=== PATIENT | female | born 1955 | race Caucasian/White ===

== ENCOUNTER 2018-08-11 19:51 | Emergency (ER) | payer OTHER ==
[~2018-08-11] VITALS: Ht 165.1 cm; Wt 100.0 kg
[2018-08-11] MEDS ORDERED: KETOROLAC 30 MG/1 ML IVPush ONE (20:00)
[2018-08-11] MEDS ORDERED: PROMETHAZINE 25 MG/ML, 1ML IM ONE (20:00)
[2018-08-11] MEDS ORDERED: KETOROLAC 30 MG/1 ML ONE (20:04)
[2018-08-11] MEDS ORDERED: PROMETHAZINE 25 MG/ML, 1ML ONE (20:04)
--- NOTE | 2018-08-11 20:17 | NUR ---
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 received 1000 cc fluid and 8 mg zofran en route. BG 165 per [facility]
[2018-08-11 20:21] LABS: BASOPHILS # (AUTO) 0.01 x10^3/uL (0-0.1); BASOPHILS % (AUTO) 0 % (0-1); EOSINOPHILS # (AUTO) 0.01 x10^3/uL (0-0.4); EOSINOPHILS % (AUTO) 0 % (1-7); LYMPHOCYTES # (AUTO) 1.02 x10^3/uL (1-3.4); LYMPHOCYTES % (AUTO) 12 % (22-44); MD NO; MEAN CORPUSCULAR HEMOGLOBIN 31.1 pg (27.0-34.8); MEAN CORPUSCULAR HGB CONC 34.6 g/dL (32.4-35.8); MEAN PLATELET VOLUME 7.7 fL (7.4-10.4); MONOCYTES % (AUTO) 8 % (2-9); NEUTROPHILS # (AUTO) 6.88 x10^3/uL (1.8-6.8); NEUTROPHILS % (AUTO) 80 % (42-75); PLATELET COUNT 314 x10^3/uL (130-400); RED BLOOD COUNT 4.93 x10^6/uL (3.82-5.3); RED CELL DISTRIBUTION WIDTH 12.9 % (9.6-15.2)
[2018-08-11 20:31] LABS: ALANINE AMINOTRANSFERASE 32 U/L (12-78); ALBUMIN 3.8 g/dL (3.4-5.0); ANION GAP 9 mmol/L (5-15); CALCIUM 8.3 mg/dL (8.5-10.1); CHLORIDE 100 mmol/L (98-107); CREATININE 1.57 mg/dL (0.55-1.02)
--- NOTE | 2018-08-11 20:33 | NUR ---
PT RESTING COMFORTABLY IN [facility].
[2018-08-11 20:35] LABS: ALKALINE PHOSPHATASE 79 U/L (45-117); BILIRUBIN,TOTAL 0.4 mg/dL (0.2-1.0); TOTAL PROTEIN 7.3 g/dL (6.4-8.2); TROPONIN I < 0.015 ng/mL (0.000-0.045)
[2018-08-11 20:48] VITALS: BP 110/78
--- NOTE | 2018-08-11 20:53 | NUR ---
pt ready for dc. awaiting ride in room
== END 2018-08-11 22:37 | disposition home or self-care (01) ==
LOC: ED 20:46
DX: R55 Syncope and collapse (principal); R11.2 Nausea with vomiting, unspecified; R51 Headache; I10 Essential (primary) hypertension
CPT/HCPCS: 36415; 71045; 80053; 84484; 85025; 93005; 96372; 96374; 99284; J1885; J2550

== ENCOUNTER 2018-08-13 07:48 | Inpatient (IN) | payer OTHER ==
[~2018-08-13] VITALS: Ht 165.1 cm; Wt 104.4 kg
[2018-08-13] MEDS ORDERED: FLUT12AE2 INH (08:11)
[2018-08-13] MEDS ORDERED: SPIR1TAB PO (08:11)
[2018-08-13] MEDS ORDERED: FLUT12HF IH (08:12)
[2018-08-13] MEDS ORDERED: ALBU1.25 NEB (08:13)
[2018-08-13] MEDS ORDERED: CHOL500050 PO (08:14)
[2018-08-13] MEDS ORDERED: methylPREDNISolone SOD SUCC 125 MG/2 ML IVP ONE (08:30)
[2018-08-13] MEDS ORDERED: ALBUTEROL/IPRATROPIUM 2.5MG/0.5MG, 3 ML NEB ONE (08:30)
[2018-08-13] MEDS ORDERED: SODIUM CHLORIDE FLUSH 10ML SYR IVF ONE (08:30)
[2018-08-13] MEDS ORDERED: ALBUTEROL/IPRATROPIUM 2.5MG/0.5MG, 3 ML ONE ×2 (08:33→10:35)
[2018-08-13] MEDS ORDERED: methylPREDNISolone SOD SUCC 125 MG/2 ML ONE (08:40)
[2018-08-13 08:43] LABS: MEAN CORPUSCULAR HEMOGLOBIN 30.7 pg (27.0-34.8); MEAN CORPUSCULAR VOLUME 90.2 fL (80-100); MEAN PLATELET VOLUME 7.9 fL (7.4-10.4); PLATELET COUNT 317 x10^3/uL (130-400); RED BLOOD COUNT 5.26 x10^6/uL (3.82-5.3); RED CELL DISTRIBUTION WIDTH 12.9 % (9.6-15.2)
--- NOTE | 2018-08-13 08:46 | NUR ---
BREATHING TREATMENT COMPLETE. SOLUMEDROL GIVEN. PT REPORTS SOME IMPROVEMENT ON WORK OF BREATHING AFTER BREATHING TREATMENT.
[2018-08-13 08:54] LABS: ANION GAP 8 mmol/L (5-15); CALCIUM 9.3 mg/dL (8.5-10.1); CHLORIDE 103 mmol/L (98-107)
[2018-08-13 08:55] LABS: CREATININE 1.27 mg/dL (0.55-1.02)
[2018-08-13] MEDS ORDERED: PROMETHAZINE/COD. 10MG/6.25MG/5 ML ORAL SOL PO ONE (09:00)
[2018-08-13 09:05] LABS: BASOPHILS # (AUTO) 0.01 x10^3/uL (0-0.1); BASOPHILS % (AUTO) 0 % (0-1); EOSINOPHILS # (AUTO) 0.04 x10^3/uL (0-0.4); EOSINOPHILS % (AUTO) 0 % (1-7); LYMPHOCYTES # (AUTO) 0.95 x10^3/uL (1-3.4); LYMPHOCYTES % (AUTO) 7 % (22-44); MD SCAN; MONOCYTES # (AUTO) 0.69 x10^3/uL (0.2-0.8); MONOCYTES % (AUTO) 5 % (2-9); NEUTROPHILS # (AUTO) 11.45 x10^3/uL (1.8-6.8); NEUTROPHILS % (AUTO) 87 % (42-75)
--- NOTE | 2018-08-13 09:58 | NUR ---
BS PT REPORT FROM LUZ MARINA Whitt RN. PT CARE ASSUMED. PT SITTING UPRIGHT ON BED W/ SIDE RAILS UP X2, A&OX4, RESP EVEN & UNLABORED, SKIN WNL. TWO IV LOCKS PRESENT: LT HAND, LAC. SPOUSE IN ROOM. PT TO CT PER KAREN.
--- NOTE | 2018-08-13 10:00 | NUR ---
SBAR HAND-OFF REPORT GIVEN TO AILEEN OLIVA. PT TO CT AT THIS TIME.
[2018-08-13] MEDS ORDERED: OMNIPAQUE 350 MG/ML, 100ML BOTTLE ONE (10:16)
[2018-08-13] MEDS ORDERED: ALBUTEROL SULFATE 2.5 MG/3 ML NPPB ONE (10:30)
--- NOTE | 2018-08-13 11:03 | NUR ---
TASK RN: PT AMBULATED ON RA SATING 91-93%. PT HAD COUGHING SPELL AND DESATED TO 89%. PT BROUGHT O2 SATS BACK UP TO 90-91% RA. PT HAD ANOTHER COUGHING SPELL AND DESATED TO 89%. PT STATED SHE FELT DIZZY AND LIGHTHEADED. PT WALKED BACK INTO ROOM SATING 87-89% W/ HR 116. PT PLACED BACK ON GURRIO NIDO. MONITORS REAPPLIED. PT SATING 92% RA. [place] ORTEGA, PRIMARY RN. NOTIFIED
--- NOTE | 2018-08-13 11:33 | NUR ---
PT SITTING UPRIGHT ON BED, CARDIAC & VS MONITORING CONTINUES. FREQUENT CONGESTED COUGH NOTED. PT REPORTS COUGH HAS IMPROVED; HAS HAD 2 NEB TX'S. PT AWAITING ADMIT. HEMATOMA TO BACK OF RT HAND R/T BLOOD DRAW. LT ARM & HAND IV'S ASSESSED; BOTH PATENT.
--- NOTE | 2018-08-13 11:36 | NUR ---
THROUGHPUT RN: BED REQUESTED FROM MEDICAL AT THIS TIME.
--- NOTE | 2018-08-13 11:48 | NUR ---
THROUGHPUT RN: BED ASSINGMENT RECEIVED AT THIS TIME.
--- NOTE | 2018-08-13 12:00 | NUR ---
REPORT TO AILEEN GONZALEZ FOR ROOM 365
[2018-08-13] MEDS ORDERED: DOCUSATE 100 MG CAPSULE PO PRN (12:30)
[2018-08-13] MEDS: ACETAMINOPHEN 325 MG TABLET PO PRN ×3 (12:46→23:44)
[2018-08-13 12:50] VITALS: BP 145/84
[2018-08-13] MEDS ORDERED: methylPREDNISolone SOD SUCC 125 MG/2 ML IVPush SCH (13:00)
[2018-08-13 14:21] VITALS: BP 136/74
[2018-08-13] MEDS: GUAIFENESIN/DM 200-20MG, 10ML UDC PO PRN ×2 (15:53→21:58)
[2018-08-13] MEDS: ALBUTEROL SULFATE 2.5 MG/3 ML NPPB SCH (18:32)
[2018-08-13 19:01] VITALS: BP 137/69
[2018-08-13] MEDS: methylPREDNISolone SOD SUCC 125 MG/2 ML IVPush SCH (19:54)
[2018-08-13] MEDS ORDERED: SUMATRIPTAN 100 MG TABLET PO PRN (21:30)
[2018-08-13] MEDS: ALBUTEROL SULFATE 2.5 MG/3 ML NPPB PRN (23:36)
[2018-08-13] MEDS: TEMAZEPAM 15 MG CAPSULE PO PRN (23:44)
[2018-08-14] MEDS ORDERED: ASPIRIN 325 MG TABLET ONE (00:15)
[2018-08-14] MEDS ORDERED: NITROGLYCERIN 0.4 MG BOTTLE (25 TABS) SL ONE ×2 (00:15→00:30)
[2018-08-14] MEDS ORDERED: MORPHINE SULFATE 4 MG/ML, 1ML ONE (00:15)
[2018-08-14 00:30] VITALS: BP 143/83
[2018-08-14] MEDS ORDERED: MORPHINE SULFATE 4 MG/ML, 1ML IVPush ONE (00:30)
[2018-08-14] MEDS ORDERED: ASPIRIN 325 MG TABLET PO ONE (00:30)
[2018-08-14 01:20] LABS: TROPONIN I < 0.015 ng/mL (0.000-0.045)
[2018-08-14] MEDS: MORPHINE SULFATE 4 MG/ML, 1ML IVPush PRN (01:53)
[2018-08-14 02:04] VITALS: BP 134/79
[2018-08-14] MEDS: GUAIFENESIN/COD200MG-20MG/10ML LIQUID PO PRN ×2 (03:50→10:13)
[2018-08-14] MEDS: ALBUTEROL SULFATE 2.5 MG/3 ML NPPB SCH ×6 (04:27→20:36)
[2018-08-14 05:54] LABS: MEAN CORPUSCULAR HEMOGLOBIN 31.3 pg (27.0-34.8); MEAN CORPUSCULAR HGB CONC 34.7 g/dL (32.4-35.8); MEAN CORPUSCULAR VOLUME 90.1 fL (80-100); MEAN PLATELET VOLUME 7.8 fL (7.4-10.4); PLATELET COUNT 292 x10^3/uL (130-400); RED BLOOD COUNT 4.82 x10^6/uL (3.82-5.3); RED CELL DISTRIBUTION WIDTH 12.9 % (9.6-15.2)
[2018-08-14 05:56] LABS: ALANINE AMINOTRANSFERASE 35 U/L (12-78); ALBUMIN 3.7 g/dL (3.4-5.0); ANION GAP 9 mmol/L (5-15); CALCIUM 10.1 mg/dL (8.5-10.1); CHLORIDE 99 mmol/L (98-107); CREATININE 1.36 mg/dL (0.55-1.02)
[2018-08-14 05:58] LABS: ALKALINE PHOSPHATASE 80 U/L (45-117); BILIRUBIN,TOTAL 0.5 mg/dL (0.2-1.0); TOTAL PROTEIN 7.5 g/dL (6.4-8.2)
[2018-08-14 06:05] LABS: TROPONIN I < 0.015 ng/mL (0.000-0.045)
[2018-08-14 06:12] LABS: MD YES
[2018-08-14 06:14] LABS: BAND#(MANUAL) 1.34 x10^3/uL; BANDS%(MANUAL) 7 % (0-7); LYMPH#(MANUAL) 0.76 x10^3/uL (1-3.4); LYMPHS% (MANUAL) 4 % (22-44); MONOS#(MANUAL) 0.19 x10^3/uL (0.3-2.7); MONOS% (MANUAL) 1 % (2-9); SEG#(MANUAL) 16.81 x10^3/uL (1.8-6.8); SEGS% (MANUAL) 88 % (42-75)
[2018-08-14 06:15] LABS: <PLATELET ESTIMATE> ADEQUATE; <PLT MORPHOLOGY> NORMAL PLT MORPH; <RBC MORPHOLOGY> NORMAL
[2018-08-14] MEDS ORDERED: SPIRONOLACT/HCTZ 25/25MG TABLET PO SCH (09:00)
[2018-08-14] MEDS ORDERED: MAGNESIUM SULFATE PMX 2GM/50ML 50 ML IV ONE (09:00)
[2018-08-14] MEDS: ONDANSETRON 2MG/ML, 2ML IVPush PRN (09:17)
[2018-08-14 09:18] VITALS: BP 114/64
[2018-08-14] MEDS: SODIUM CHLORIDE 0.9% 1,000 ML IV SCH ×2 (10:12→22:54)
[2018-08-14] MEDS: methylPREDNISolone SOD SUCC 125 MG/2 ML IVPush SCH ×2 (10:13→20:49)
[2018-08-14] MEDS: ACETAMINOPHEN 325 MG TABLET PO PRN (10:13)
[2018-08-14 11:09] LABS: RAPID INFLUENZA A Negative (Negative); RAPID INFLUENZA B Negative (Negative)
[2018-08-14 11:48] VITALS: BP 104/63
[2018-08-14] MEDS: METHOCARBAMOL 500 MG TABLET PO PRN ×2 (13:09→22:55)
[2018-08-14] MEDS: LIDODERM 5% PATCH TD SCH (13:09)
[2018-08-14] MEDS: CEFTRIAXONE PMX 1GM/50ML 50 ML IV SCH (13:12)
[2018-08-14 13:40] VITALS: BP 125/80
[2018-08-14] MEDS: DOXYCYCLINE 100 MG in DEXTROSE 5% 250 ML IV SCH (14:03)
[2018-08-14] MEDS: GUAIFENESIN 200 MG TABLET PO SCH ×2 (15:50→20:49)
[2018-08-14 18:44] VITALS: BP 107/68
[2018-08-14] MEDS: FAMOTIDINE 20 MG TABLET PO SCH (20:49)
[2018-08-15] MEDS: BENZONATATE 100 MG CAPSULE PO PRN ×3 (00:35→19:13)
[2018-08-15 00:36] VITALS: BP 98/62
[2018-08-15] MEDS: DOXYCYCLINE 100 MG in DEXTROSE 5% 250 ML IV SCH ×2 (00:41→13:30)
[2018-08-15] MEDS: ALBUTEROL SULFATE 2.5 MG/3 ML NPPB SCH ×5 (01:00→20:00)
[2018-08-15] MEDS: ONDANSETRON 2MG/ML, 2ML IVPush PRN (04:34)
[2018-08-15] MEDS: MORPHINE SULFATE 4 MG/ML, 1ML IVPush PRN ×2 (04:34→14:30)
[2018-08-15] MEDS: GUAIFENESIN 200 MG TABLET PO SCH ×3 (05:14→20:30)
[2018-08-15 05:54] LABS: CHLORIDE 97 mmol/L (98-107)
[2018-08-15 06:01] LABS: ANION GAP 7 mmol/L (5-15); CALCIUM 9.2 mg/dL (8.5-10.1); CREATININE 1.33 mg/dL (0.55-1.02)
[2018-08-15 06:14] LABS: MEAN CORPUSCULAR HEMOGLOBIN 31.2 pg (27.0-34.8); MEAN CORPUSCULAR HGB CONC 34.4 g/dL (32.4-35.8); MEAN CORPUSCULAR VOLUME 90.7 fL (80-100); MEAN PLATELET VOLUME 8.3 fL (7.4-10.4); PLATELET COUNT 277 x10^3/uL (130-400); RED BLOOD COUNT 4.52 x10^6/uL (3.82-5.3); RED CELL DISTRIBUTION WIDTH 12.7 % (9.6-15.2)
[2018-08-15 06:51] LABS: MD YES
[2018-08-15 06:52] LABS: BAND#(MANUAL) 2.51 x10^3/uL; BANDS%(MANUAL) 16 % (0-7); LYMPH#(MANUAL) 0.47 x10^3/uL (1-3.4); LYMPHS% (MANUAL) 3 % (22-44); MONOS#(MANUAL) 0.79 x10^3/uL (0.3-2.7); MONOS% (MANUAL) 5 % (2-9); SEG#(MANUAL) 11.93 x10^3/uL (1.8-6.8); SEGS% (MANUAL) 76 % (42-75)
[2018-08-15 06:53] LABS: <PLATELET ESTIMATE> ADEQUATE; <PLT MORPHOLOGY> NORMAL PLT MORPH; <RBC MORPHOLOGY> NORMAL
[2018-08-15] MEDS: methylPREDNISolone SOD SUCC 125 MG/2 ML IVPush SCH ×3 (07:45→20:25)
[2018-08-15] MEDS: GUAIFENESIN/DM 200-20MG, 10ML UDC PO PRN ×3 (07:49→20:27)
[2018-08-15] MEDS: METHOCARBAMOL 500 MG TABLET PO PRN (07:49)
[2018-08-15 08:00] VITALS: BP 149/80
[2018-08-15] MEDS ORDERED: KETOROLAC 30 MG/1 ML IVPush PRN (11:30)
[2018-08-15] MEDS: LIDODERM 5% PATCH TD SCH (12:08)
[2018-08-15] MEDS: CEFTRIAXONE PMX 1GM/50ML 50 ML IV SCH (12:09)
[2018-08-15 15:13] VITALS: BP 111/73
[2018-08-15 16:57] VITALS: BP 115/72
[2018-08-15 19:33] VITALS: BP 104/64
[2018-08-15] MEDS: FAMOTIDINE 20 MG TABLET PO SCH (20:27)
[2018-08-15] MEDS: TEMAZEPAM 15 MG CAPSULE PO PRN (23:43)
[2018-08-16] MEDS: MORPHINE SULFATE 4 MG/ML, 1ML IVPush PRN (01:18)
[2018-08-16] MEDS: DOXYCYCLINE 100 MG in DEXTROSE 5% 250 ML IV SCH (01:18)
[2018-08-16 01:24] VITALS: BP 121/80
[2018-08-16 01:53] VITALS: BP 113/56
[2018-08-16] MEDS: METHOCARBAMOL 500 MG TABLET PO PRN ×2 (03:36→09:41)
[2018-08-16] MEDS: GUAIFENESIN/DM 200-20MG, 10ML UDC PO PRN (05:26)
[2018-08-16 05:40] LABS: MEAN CORPUSCULAR HEMOGLOBIN 31.4 pg (27.0-34.8); MEAN CORPUSCULAR HGB CONC 34.3 g/dL (32.4-35.8); MEAN CORPUSCULAR VOLUME 91.5 fL (80-100); MEAN PLATELET VOLUME 8.2 fL (7.4-10.4); PLATELET COUNT 298 x10^3/uL (130-400); RED BLOOD COUNT 4.32 x10^6/uL (3.82-5.3)
[2018-08-16 05:42] LABS: ANION GAP 7 mmol/L (5-15); CALCIUM 8.9 mg/dL (8.5-10.1); CHLORIDE 100 mmol/L (98-107)
[2018-08-16 05:43] LABS: CREATININE 1.03 mg/dL (0.55-1.02)
[2018-08-16 06:02] LABS: MD YES
[2018-08-16 06:04] LABS: BANDS%(MANUAL) 12 % (0-7); LYMPHS% (MANUAL) 4 % (22-44); METAMYELOCYTES# (MANUAL) 0.25 x10^3/uL (0-0); METAMYELOCYTES% (MANUAL) 1 % (0-1); MONOS% (MANUAL) 2 % (2-9); MYELOCYTES# (MANUAL) 0.25 x10^3/uL (0-0); MYELOCYTES% (MANUAL) 1 % (0-0); SEGS% (MANUAL) 80 % (42-75)
[2018-08-16 06:05] LABS: <PLATELET ESTIMATE> ADEQUATE; <PLT MORPHOLOGY> NORMAL PLT MORPH; <RBC MORPHOLOGY> NORMAL; PMNS WITH VACUOLES 1+; TOXIC GRAN 1+
[2018-08-16] MEDS: ALBUTEROL SULFATE 2.5 MG/3 ML NPPB SCH ×4 (06:45→20:58)
[2018-08-16] MEDS: methylPREDNISolone SOD SUCC 125 MG/2 ML IVPush SCH (07:34)
[2018-08-16] MEDS: GUAIFENESIN 200 MG TABLET PO SCH (07:35)
[2018-08-16 08:34] VITALS: BP 115/73
[2018-08-16] MEDS: PANTOPRAZOLE 40 MG IV IVPush SCH (09:27)
[2018-08-16] MEDS: LIDODERM 5% PATCH TD SCH ×2 (09:38→12:15)
[2018-08-16] MEDS ORDERED: SODIUM CHLORIDE 0.9% 1,000 ML IV SCH ×2 (10:00→18:30)
[2018-08-16] MEDS: CEFTRIAXONE PMX 1GM/50ML 50 ML IV SCH (12:15)
[2018-08-16 13:16] VITALS: BP 125/80
[2018-08-16] MEDS: GUAIFENESIN ER 600 MG TABLET PO SCH ×2 (15:28→20:36)
[2018-08-16] MEDS: MEROPENEM 1 GM in SODIUM CHLORIDE 0.9% 100 ML IV SCH ×2 (15:28→23:13)
[2018-08-16] MEDS: DOXYCYCLINE 100MG TABLET PO SCH ×2 (15:28→20:36)
[2018-08-16] MEDS ORDERED: MAGNESIUM HYDROXIDE 8%, 30ML UDC ONE (17:30)
[2018-08-16] MEDS ORDERED: MAGNESIUM HYDROXIDE 8%, 30ML UDC PO PRN (18:00)
[2018-08-16 19:08] VITALS: BP 138/72
[2018-08-17 00:35] VITALS: BP 133/80
[2018-08-17] MEDS: ALBUTEROL SULFATE 2.5 MG/3 ML NPPB PRN (03:10)
[2018-08-17] MEDS: MEROPENEM 1 GM in SODIUM CHLORIDE 0.9% 100 ML IV SCH ×3 (06:40→23:09)
[2018-08-17 07:05] VITALS: BP 141/86
[2018-08-17] MEDS: ALBUTEROL SULFATE 2.5 MG/3 ML NPPB SCH ×5 (07:37→22:50)
[2018-08-17 07:58] LABS: MEAN CORPUSCULAR HEMOGLOBIN 30.8 pg (27.0-34.8); MEAN CORPUSCULAR VOLUME 90.8 fL (80-100); MEAN PLATELET VOLUME 7.9 fL (7.4-10.4); PLATELET COUNT 334 x10^3/uL (130-400); RED BLOOD COUNT 4.28 x10^6/uL (3.82-5.3); RED CELL DISTRIBUTION WIDTH 12.9 % (9.6-15.2)
[2018-08-17 08:09] LABS: ANION GAP 7 mmol/L (5-15); CALCIUM 8.9 mg/dL (8.5-10.1); CHLORIDE 103 mmol/L (98-107); CREATININE 0.96 mg/dL (0.55-1.02)
[2018-08-17] MEDS: GUAIFENESIN ER 600 MG TABLET PO SCH ×3 (08:12→20:16)
[2018-08-17] MEDS: PANTOPRAZOLE 40 MG IV IVPush SCH (08:12)
[2018-08-17] MEDS: DOXYCYCLINE 100MG TABLET PO SCH (08:12)
[2018-08-17] MEDS: POLYETHYLENE GLYCOL 17 GM PACKET PO SCH (08:12)
[2018-08-17 08:17] LABS: MD YES
[2018-08-17] MEDS ORDERED: LISI-167 PO (08:18)
[2018-08-17 08:20] LABS: BAND#(MANUAL) 5.92 x10^3/uL; BANDS%(MANUAL) 20 % (0-7); LYMPH#(MANUAL) 2.66 x10^3/uL (1-3.4); LYMPHS% (MANUAL) 9 % (22-44); METAMYELOCYTES% (MANUAL) 1 % (0-1); MONOS#(MANUAL) 1.18 x10^3/uL (0.3-2.7); MONOS% (MANUAL) 4 % (2-9); SEG#(MANUAL) 19.54 x10^3/uL (1.8-6.8); SEGS% (MANUAL) 66 % (42-75)
[2018-08-17 08:21] LABS: <PLATELET ESTIMATE> ADEQUATE; <PLT MORPHOLOGY> NORMAL PLT MORPH; <RBC MORPHOLOGY> NORMAL; TOXIC GRAN 1+
[2018-08-17] MEDS ORDERED: LINEZOLID 600 MG TABLET PO SCH (09:00)
[2018-08-17] MEDS: methylPREDNISolone SOD SUCC 40 MG/ML IV SCH ×2 (09:29→20:16)
[2018-08-17] MEDS: LIDODERM 5% PATCH TD SCH (10:38)
[2018-08-17 12:25] VITALS: BP 152/72
[2018-08-17] MEDS ORDERED: LISINOPRIL 10 MG TABLET ONE (12:43)
[2018-08-17] MEDS: SPIRONOLACT/HCTZ 25/25MG TABLET PO SCH (13:15)
[2018-08-17] MEDS: LISINOPRIL 10 MG TABLET PO SCH (13:16)
[2018-08-17] MEDS: METHOCARBAMOL 500 MG TABLET PO PRN ×2 (13:26→20:16)
[2018-08-17] MEDS ORDERED: BISACODYL 10 MG SUPP PR PRN (15:00)
[2018-08-17] MEDS ORDERED: VANCOMYCIN PER PHARMACY MC PRN (15:30)
[2018-08-17] MEDS ORDERED: PHARMACOKINETIC CONSULTATION MC ONE (16:00)
[2018-08-17] MEDS ORDERED: PHARMACOKINETIC MONITORING MC PRN (16:00)
[2018-08-17] MEDS: ACETAMINOPHEN 325 MG TABLET PO PRN (16:55)
[2018-08-17] MEDS: VANCOMYCIN 2,300 MG in SODIUM CHLORIDE 0.9% 500 ML IV SCH (16:56)
[2018-08-17 20:09] VITALS: BP 112/73
[2018-08-18] MEDS: ALBUTEROL SULFATE 2.5 MG/3 ML NPPB SCH ×6 (03:00→22:55)
[2018-08-18 03:21] VITALS: BP 128/76
[2018-08-18] MEDS: METHOCARBAMOL 500 MG TABLET PO PRN ×3 (04:13→23:34)
[2018-08-18 05:43] LABS: MEAN CORPUSCULAR HEMOGLOBIN 30.4 pg (27.0-34.8); MEAN CORPUSCULAR HGB CONC 33.8 g/dL (32.4-35.8); MEAN CORPUSCULAR VOLUME 90.1 fL (80-100); MEAN PLATELET VOLUME 7.8 fL (7.4-10.4); PLATELET COUNT 333 x10^3/uL (130-400); RED BLOOD COUNT 4.25 x10^6/uL (3.82-5.3); RED CELL DISTRIBUTION WIDTH 13.1 % (9.6-15.2)
[2018-08-18 05:45] LABS: HCT (SEDRATE) 38.3 % (34.6-47.8)
[2018-08-18 05:54] LABS: ANION GAP 8 mmol/L (5-15); CALCIUM 8.6 mg/dL (8.5-10.1); CHLORIDE 102 mmol/L (98-107)
[2018-08-18 06:02] LABS: CREATININE 0.85 mg/dL (0.55-1.02)
[2018-08-18] MEDS: MEROPENEM 1 GM in SODIUM CHLORIDE 0.9% 100 ML IV SCH (06:33)
[2018-08-18 07:08] LABS: MD YES
[2018-08-18 07:11] LABS: BAND#(MANUAL) 0.55 x10^3/uL; BANDS%(MANUAL) 2 % (0-7); LYMPH#(MANUAL) 2.19 x10^3/uL (1-3.4); LYMPHS% (MANUAL) 8 % (22-44); MONOS#(MANUAL) 0.55 x10^3/uL (0.3-2.7); MONOS% (MANUAL) 2 % (2-9); SEG#(MANUAL) 24.11 x10^3/uL (1.8-6.8); SEGS% (MANUAL) 88 % (42-75); TOXIC GRAN 1+
[2018-08-18 07:12] LABS: <PLATELET ESTIMATE> ADEQUATE; <PLT MORPHOLOGY> NORMAL PLT MORPH; <RBC MORPHOLOGY> NORMAL
[2018-08-18 07:25] VITALS: BP 150/92
[2018-08-18] MEDS: PANTOPRAZOLE 40 MG IV IVPush SCH (08:54)
[2018-08-18] MEDS: methylPREDNISolone SOD SUCC 40 MG/ML IV SCH ×2 (08:54→23:12)
[2018-08-18] MEDS: POLYETHYLENE GLYCOL 17 GM PACKET PO SCH (08:55)
[2018-08-18] MEDS: LISINOPRIL 10 MG TABLET PO SCH (08:55)
[2018-08-18] MEDS: SPIRONOLACT/HCTZ 25/25MG TABLET PO SCH (08:55)
[2018-08-18] MEDS: GUAIFENESIN ER 600 MG TABLET PO SCH ×3 (08:56→23:12)
[2018-08-18] MEDS: CHOLECALCIFEROL 5,000u TAB PO SCH (08:56)
[2018-08-18] MEDS: ERGOCALCIFEROL 50,000 UNIT CAPSULE HOMEMEDPO SCH (08:56)
[2018-08-18] MEDS ORDERED: SPIRONOLACT/HCTZ 25/25MG TABLET PO SCH (09:00)
[2018-08-18] MEDS ORDERED: LISINOPRIL 10 MG TABLET PO SCH (09:00)
[2018-08-18] MEDS: LIDODERM 5% PATCH TD SCH (10:08)
[2018-08-18 12:20] VITALS: BP 152/87
[2018-08-18] MEDS: HYDROcodone/CHLORPHENIR ORAL SUSP PO SCH ×2 (13:58→23:12)
[2018-08-18] MEDS: VANCOMYCIN 2,300 MG in SODIUM CHLORIDE 0.9% 500 ML IV SCH (17:00)
[2018-08-18 20:00] VITALS: BP 129/78
[2018-08-18] MEDS ORDERED: HYDROcodone/CHLORPHENIR ORAL SUSP PO SCH (21:00)
[2018-08-19] MEDS: ALBUTEROL SULFATE 2.5 MG/3 ML NPPB SCH ×5 (02:34→18:30)
[2018-08-19 02:59] VITALS: BP 128/79
[2018-08-19 05:58] LABS: MEAN CORPUSCULAR HEMOGLOBIN 30.7 pg (27.0-34.8); MEAN CORPUSCULAR VOLUME 90.2 fL (80-100); MEAN PLATELET VOLUME 8.1 fL (7.4-10.4); PLATELET COUNT 361 x10^3/uL (130-400); RED BLOOD COUNT 4.46 x10^6/uL (3.82-5.3); RED CELL DISTRIBUTION WIDTH 13.4 % (9.6-15.2)
[2018-08-19 06:15] LABS: ALBUMIN 2.6 g/dL (3.4-5.0); ANION GAP 9 mmol/L (5-15); CALCIUM 8.6 mg/dL (8.5-10.1); CHLORIDE 100 mmol/L (98-107); CREATININE 0.89 mg/dL (0.55-1.02)
[2018-08-19 06:30] LABS: MD YES
[2018-08-19 06:33] LABS: <PLATELET ESTIMATE> ADEQUATE; <PLT MORPHOLOGY> NORMAL PLT MORPH; <RBC MORPHOLOGY> NORMAL; LYMPH#(MANUAL) 1.01 x10^3/uL (1-3.4); LYMPHS% (MANUAL) 4 % (22-44); METAMYELOCYTES# (MANUAL) 0.51 x10^3/uL (0-0); METAMYELOCYTES% (MANUAL) 2 % (0-1); SEGS% (MANUAL) 94 % (42-75); TOXIC GRAN 1+
[2018-08-19 07:53] VITALS: BP 131/85
[2018-08-19] MEDS: POLYETHYLENE GLYCOL 17 GM PACKET PO SCH (08:26)
[2018-08-19] MEDS: methylPREDNISolone SOD SUCC 40 MG/ML IV SCH (08:26)
[2018-08-19] MEDS: PANTOPRAZOLE 40 MG IV IVPush SCH (08:26)
[2018-08-19] MEDS: SPIRONOLACT/HCTZ 25/25MG TABLET PO SCH (08:26)
[2018-08-19] MEDS: CHOLECALCIFEROL 5,000u TAB PO SCH (08:27)
[2018-08-19] MEDS: HYDROcodone/CHLORPHENIR ORAL SUSP PO SCH ×2 (08:27→20:21)
[2018-08-19] MEDS: LISINOPRIL 10 MG TABLET PO SCH (08:27)
[2018-08-19] MEDS: GUAIFENESIN ER 600 MG TABLET PO SCH ×3 (08:27→20:21)
[2018-08-19] MEDS: LIDODERM 5% PATCH TD SCH (08:28)
[2018-08-19] MEDS: BENZONATATE 100 MG CAPSULE PO SCH ×3 (12:29→20:22)
[2018-08-19 12:33] VITALS: BP 133/74
[2018-08-19] MEDS: VANCOMYCIN 2,300 MG in SODIUM CHLORIDE 0.9% 500 ML IV SCH (17:07)
[2018-08-19 19:27] VITALS: BP 117/73
[2018-08-20 00:37] VITALS: BP 115/69
[2018-08-20] MEDS: METHOCARBAMOL 500 MG TABLET PO PRN ×4 (01:12→22:53)
[2018-08-20 06:30] VITALS: BP 136/82
[2018-08-20 06:30] LABS: ALBUMIN 2.3 g/dL (3.4-5.0); ANION GAP 7 mmol/L (5-15); CHLORIDE 101 mmol/L (98-107); CREATININE 0.86 mg/dL (0.55-1.02)
[2018-08-20] MEDS: ALBUTEROL SULFATE 2.5 MG/3 ML NPPB SCH ×5 (06:39→22:21)
[2018-08-20 07:33] LABS: MEAN CORPUSCULAR HEMOGLOBIN 29.7 pg (27.0-34.8); MEAN CORPUSCULAR HGB CONC 32.9 g/dL (32.4-35.8); MEAN CORPUSCULAR VOLUME 90.5 fL (80-100); MEAN PLATELET VOLUME 7.8 fL (7.4-10.4); PLATELET COUNT 359 x10^3/uL (130-400); RED BLOOD COUNT 4.27 x10^6/uL (3.82-5.3); RED CELL DISTRIBUTION WIDTH 13.8 % (9.6-15.2)
[2018-08-20 08:04] LABS: MD YES
[2018-08-20 08:06] LABS: <RBC MORPHOLOGY> NORMAL; BAND#(MANUAL) 1.03 x10^3/uL; BANDS%(MANUAL) 5 % (0-7); LYMPH#(MANUAL) 4.74 x10^3/uL (1-3.4); LYMPHS% (MANUAL) 23 % (22-44); METAMYELOCYTES# (MANUAL) 0.62 x10^3/uL (0-0); METAMYELOCYTES% (MANUAL) 3 % (0-1); MONOS#(MANUAL) 1.03 x10^3/uL (0.3-2.7); MONOS% (MANUAL) 5 % (2-9); SEG#(MANUAL) 13.18 x10^3/uL (1.8-6.8); SEGS% (MANUAL) 64 % (42-75); TOXIC GRAN 1+
[2018-08-20 08:07] LABS: <PLATELET ESTIMATE> ADEQUATE; <PLT MORPHOLOGY> NORMAL PLT MORPH
[2018-08-20 08:36] LABS: CHOL/HDL RATIO 4.7
[2018-08-20] MEDS: GUAIFENESIN/COD200MG-20MG/10ML LIQUID PO PRN ×3 (09:16→23:26)
[2018-08-20] MEDS: PANTOPRAZOLE 40 MG IV IVPush SCH (09:16)
[2018-08-20] MEDS: SPIRONOLACT/HCTZ 25/25MG TABLET PO SCH (09:17)
[2018-08-20] MEDS: BENZONATATE 100 MG CAPSULE PO SCH ×3 (09:17→20:19)
[2018-08-20] MEDS: POLYETHYLENE GLYCOL 17 GM PACKET PO SCH (09:17)
[2018-08-20] MEDS: LISINOPRIL 10 MG TABLET PO SCH (09:18)
[2018-08-20] MEDS: GUAIFENESIN ER 600 MG TABLET PO SCH ×3 (09:18→20:18)
[2018-08-20] MEDS: CHOLECALCIFEROL 5,000u TAB PO SCH (09:19)
[2018-08-20] MEDS: LIDODERM 5% PATCH TD SCH (10:00)
[2018-08-20] MEDS: ALBUTEROL SULFATE 2.5 MG/3 ML NPPB PRN (10:34)
[2018-08-20 14:13] VITALS: BP 125/75
[2018-08-20] MEDS: VANCOMYCIN 2,300 MG in SODIUM CHLORIDE 0.9% 500 ML IV SCH (17:05)
[2018-08-20 20:16] VITALS: BP 108/67
[2018-08-20] MEDS ORDERED: CEFTAROLINE 600 MG in SODIUM CHLORIDE 0.9% 100 ML IV SCH (22:30)
[2018-08-20] MEDS ORDERED: PNEUMOC 13-VALENT VACC, 0.5 ML IM-VACC ONE (22:30)
[2018-08-20] MEDS: ACETAMINOPHEN 325 MG TABLET PO PRN (23:26)
[2018-08-20] MEDS: ONDANSETRON ODT 4 MG PO PRN (23:37)
[2018-08-21 02:55] VITALS: BP 106/71
[2018-08-21] MEDS: ACETAMINOPHEN 325 MG TABLET PO PRN ×2 (03:50→20:25)
[2018-08-21] MEDS: GUAIFENESIN/COD200MG-20MG/10ML LIQUID PO PRN ×2 (03:50→20:24)
[2018-08-21] MEDS: ALBUTEROL SULFATE 2.5 MG/3 ML NPPB SCH ×5 (04:11→19:57)
[2018-08-21] MEDS: VANCOMYCIN 2,000 MG in SODIUM CHLORIDE 0.9% 500 ML IV SCH ×2 (05:41→17:00)
[2018-08-21] MEDS: METHOCARBAMOL 500 MG TABLET PO PRN (06:42)
[2018-08-21] MEDS: GUAIFENESIN ER 600 MG TABLET PO SCH ×3 (08:27→20:25)
[2018-08-21] MEDS: SPIRONOLACT/HCTZ 25/25MG TABLET PO SCH (08:27)
[2018-08-21] MEDS: PANTOPRAZOLE 40 MG IV IVPush SCH (08:27)
[2018-08-21] MEDS: POLYETHYLENE GLYCOL 17 GM PACKET PO SCH (08:27)
[2018-08-21] MEDS: BENZONATATE 100 MG CAPSULE PO SCH ×3 (08:28→20:24)
[2018-08-21] MEDS: LISINOPRIL 10 MG TABLET PO SCH (08:28)
[2018-08-21 08:30] VITALS: BP 113/72
[2018-08-21] MEDS: CHOLECALCIFEROL 5,000u TAB PO SCH (09:00)
[2018-08-21] MEDS ORDERED: LIDOCAINE 1%, 10ML INFIL ONE (09:30)
[2018-08-21] MEDS ORDERED: MORPHINE SULFATE 4 MG/ML, 1ML ONE (09:54)
[2018-08-21] MEDS ORDERED: MORPHINE SULFATE 4 MG/ML, 1ML IVPush ONE (10:00)
[2018-08-21] MEDS: LIDODERM 5% PATCH TD SCH (10:00)
[2018-08-21] MEDS: ONDANSETRON 2MG/ML, 2ML IVPush PRN (11:08)
[2018-08-21] MEDS ORDERED: MORPHINE SULFATE 4 MG/ML, 1ML IVPush PRN (11:30)
[2018-08-21] MEDS ORDERED: SODIUM CHLORIDE 0.9%, 250ML IVBOLUS ONE (12:00)
[2018-08-21] MEDS: SODIUM CHLORIDE 0.9% 1,000 ML IV SCH (12:22)
[2018-08-21 13:06] VITALS: BP 102/62
[2018-08-21] MEDS: OXYcodone/APAP 5/325MG TABLET PO PRN (13:39)
[2018-08-21] MEDS ORDERED: LIDOCAINE-MPF 1%, 5ML ONE (14:10)
[2018-08-21 19:47] VITALS: BP 105/68
[2018-08-22 01:36] VITALS: BP 107/69
[2018-08-22] MEDS: GUAIFENESIN/COD200MG-20MG/10ML LIQUID PO PRN ×3 (02:29→19:43)
[2018-08-22] MEDS: SODIUM CHLORIDE 0.9% 1,000 ML IV SCH ×2 (02:29→16:44)
[2018-08-22] MEDS: METHOCARBAMOL 500 MG TABLET PO PRN ×3 (02:29→16:44)
[2018-08-22] MEDS: ACETAMINOPHEN 325 MG TABLET PO PRN (02:29)
[2018-08-22] MEDS: ALBUTEROL SULFATE 2.5 MG/3 ML NPPB PRN (02:56)
[2018-08-22] MEDS: VANCOMYCIN 2,000 MG in SODIUM CHLORIDE 0.9% 500 ML IV SCH (05:00)
[2018-08-22 06:09] LABS: MEAN CORPUSCULAR HGB CONC 34.6 g/dL (32.4-35.8); MEAN CORPUSCULAR VOLUME 89.8 fL (80-100); MEAN PLATELET VOLUME 7.5 fL (7.4-10.4); PLATELET COUNT 341 x10^3/uL (130-400); RED BLOOD COUNT 3.99 x10^6/uL (3.82-5.3); RED CELL DISTRIBUTION WIDTH 13.6 % (9.6-15.2)
[2018-08-22 06:48] VITALS: BP 118/74
[2018-08-22] MEDS: ALBUTEROL SULFATE 2.5 MG/3 ML NPPB SCH ×4 (07:00→19:20)
[2018-08-22] MEDS: CHOLECALCIFEROL 5,000u TAB PO SCH (08:14)
[2018-08-22] MEDS: PANTOPRAZOLE 40 MG IV IVPush SCH (08:20)
[2018-08-22] MEDS: LISINOPRIL 10 MG TABLET PO SCH (08:20)
[2018-08-22] MEDS: POLYETHYLENE GLYCOL 17 GM PACKET PO SCH (08:21)
[2018-08-22] MEDS: GUAIFENESIN ER 600 MG TABLET PO SCH ×3 (08:21→21:00)
[2018-08-22] MEDS: BENZONATATE 100 MG CAPSULE PO SCH ×3 (08:21→21:00)
[2018-08-22] MEDS: SPIRONOLACT/HCTZ 25/25MG TABLET PO SCH (08:21)
[2018-08-22 08:22] LABS: MD YES
[2018-08-22 08:39] LABS: <RBC MORPHOLOGY> NORMAL; LYMPHS% (MANUAL) 2 % (22-44); SEGS% (MANUAL) 98 % (42-75)
[2018-08-22 08:40] LABS: <PLATELET ESTIMATE> ADEQUATE; <PLT MORPHOLOGY> NORMAL PLT MORPH; TOXIC GRAN 1+
[2018-08-22] MEDS: LIDODERM 5% PATCH TD SCH (09:40)
[2018-08-22] MEDS: OXYcodone/APAP 5/325MG TABLET PO PRN ×3 (09:41→18:08)
[2018-08-22] MEDS: ONDANSETRON 2MG/ML, 2ML IVPush PRN (09:41)
[2018-08-22] MEDS: CLINDAMYCIN PMX 900MG/50ML 50 ML IV SCH ×2 (10:18→18:07)
[2018-08-22 14:02] VITALS: BP 105/71
[2018-08-22 19:38] VITALS: BP 102/67
[2018-08-23 00:54] VITALS: BP 106/61
[2018-08-23] MEDS: OXYcodone/APAP 5/325MG TABLET PO PRN (02:06)
[2018-08-23] MEDS: CLINDAMYCIN PMX 900MG/50ML 50 ML IV SCH ×3 (02:06→18:29)
[2018-08-23] MEDS: ALBUTEROL SULFATE 2.5 MG/3 ML NPPB PRN (02:30)
[2018-08-23 04:39] LABS: ALBUMIN 1.8 g/dL (3.4-5.0); ANION GAP 6 mmol/L (5-15); CALCIUM 7.9 mg/dL (8.5-10.1); CHLORIDE 97 mmol/L (98-107)
[2018-08-23 04:40] LABS: MEAN CORPUSCULAR HEMOGLOBIN 31.1 pg (27.0-34.8); MEAN CORPUSCULAR HGB CONC 34.1 g/dL (32.4-35.8); MEAN CORPUSCULAR VOLUME 91.1 fL (80-100); MEAN PLATELET VOLUME 7.4 fL (7.4-10.4); PLATELET COUNT 333 x10^3/uL (130-400); RED CELL DISTRIBUTION WIDTH 13.7 % (9.6-15.2)
[2018-08-23 04:42] LABS: CREATININE 0.85 mg/dL (0.55-1.02)
[2018-08-23 06:17] LABS: MD YES
[2018-08-23 06:20] LABS: BANDS%(MANUAL) 4 % (0-7); LYMPH#(MANUAL) 1.58 x10^3/uL (1-3.4); LYMPHS% (MANUAL) 7 % (22-44); MONOS% (MANUAL) 4 % (2-9); MYELOCYTES# (MANUAL) 0.23 x10^3/uL (0-0); MYELOCYTES% (MANUAL) 1 % (0-0); SEG#(MANUAL) 18.98 x10^3/uL (1.8-6.8); SEGS% (MANUAL) 84 % (42-75)
[2018-08-23 06:21] LABS: <PLATELET ESTIMATE> ADEQUATE; <PLT MORPHOLOGY> NORMAL PLT MORPH; <RBC MORPHOLOGY> NORMAL; TOXIC GRAN 1+
[2018-08-23] MEDS: ALBUTEROL SULFATE 2.5 MG/3 ML NPPB SCH ×4 (07:16→20:00)
[2018-08-23 07:46] VITALS: BP 119/66
[2018-08-23] MEDS: SODIUM CHLORIDE 0.9% 1,000 ML IV SCH ×2 (08:24→23:01)
[2018-08-23] MEDS: PANTOPRAZOLE 40 MG IV IVPush SCH (08:25)
[2018-08-23] MEDS: GUAIFENESIN ER 600 MG TABLET PO SCH ×3 (08:26→19:54)
[2018-08-23] MEDS: SPIRONOLACT/HCTZ 25/25MG TABLET PO SCH (08:26)
[2018-08-23] MEDS: POLYETHYLENE GLYCOL 17 GM PACKET PO SCH (08:26)
[2018-08-23] MEDS: CHOLECALCIFEROL 5,000u TAB PO SCH (08:27)
[2018-08-23] MEDS: BENZONATATE 100 MG CAPSULE PO SCH ×3 (08:27→19:54)
[2018-08-23] MEDS: METHOCARBAMOL 500 MG TABLET PO PRN ×2 (08:28→16:04)
[2018-08-23] MEDS: LISINOPRIL 10 MG TABLET PO SCH (08:28)
[2018-08-23] MEDS: LIDODERM 5% PATCH TD SCH (11:01)
[2018-08-23] MEDS: GUAIFENESIN/COD200MG-20MG/10ML LIQUID PO PRN (11:01)
[2018-08-23 13:26] VITALS: BP 137/74
[2018-08-23] MEDS: ONDANSETRON ODT 4 MG PO PRN (13:44)
[2018-08-23] MEDS: ACETAMINOPHEN 325 MG TABLET PO PRN (14:10)
[2018-08-23 19:48] VITALS: BP 128/52
[2018-08-24] MEDS: ALBUTEROL SULFATE 2.5 MG/3 ML NPPB PRN (00:35)
[2018-08-24] MEDS: CLINDAMYCIN PMX 900MG/50ML 50 ML IV SCH ×3 (01:57→18:00)
[2018-08-24 02:44] VITALS: BP 106/67
[2018-08-24] MEDS: ALBUTEROL SULFATE 2.5 MG/3 ML NPPB SCH ×4 (07:10→19:42)
[2018-08-24 07:39] VITALS: BP 108/68
[2018-08-24] MEDS: PANTOPRAZOLE 40 MG IV IVPush SCH (07:42)
[2018-08-24] MEDS: GUAIFENESIN ER 600 MG TABLET PO SCH ×3 (07:42→21:56)
[2018-08-24] MEDS: SPIRONOLACT/HCTZ 25/25MG TABLET PO SCH (07:43)
[2018-08-24] MEDS: POLYETHYLENE GLYCOL 17 GM PACKET PO SCH (07:43)
[2018-08-24] MEDS: CHOLECALCIFEROL 5,000u TAB PO SCH (07:43)
[2018-08-24] MEDS: BENZONATATE 100 MG CAPSULE PO SCH ×3 (07:43→21:56)
[2018-08-24] MEDS: LISINOPRIL 10 MG TABLET PO SCH (07:44)
[2018-08-24 08:26] LABS: CLOSTRIDIUM DIFFICILE ANTIGEN NEGATIVE; CLOSTRIDIUM DIFFICILE TOXIN NEGATIVE (Negative)
[2018-08-24] MEDS: SODIUM CHLORIDE 0.9% 1,000 ML IV SCH (10:57)
[2018-08-24] MEDS: LIDODERM 5% PATCH TD SCH (10:57)
[2018-08-24] MEDS: ACETAMINOPHEN 325 MG TABLET PO PRN (11:05)
[2018-08-24 12:51] VITALS: BP 95/65
[2018-08-24 20:08] VITALS: BP 103/64
[2018-08-24] MEDS: GUAIFENESIN/COD200MG-20MG/10ML LIQUID PO PRN (21:56)
[2018-08-25] MEDS: ALBUTEROL SULFATE 2.5 MG/3 ML NPPB SCH ×5 (00:49→19:53)
[2018-08-25] MEDS: OXYcodone/APAP 5/325MG TABLET PO PRN (00:58)
[2018-08-25 01:25] VITALS: BP 103/69
[2018-08-25] MEDS: CLINDAMYCIN PMX 900MG/50ML 50 ML IV SCH ×2 (01:39→10:36)
[2018-08-25 06:19] LABS: BASOPHILS # (AUTO) 0.01 x10^3/uL (0-0.1); BASOPHILS % (AUTO) 0 % (0-1); EOSINOPHILS % (AUTO) 2 % (1-7); LYMPHOCYTES # (AUTO) 1.24 x10^3/uL (1-3.4); LYMPHOCYTES % (AUTO) 9 % (22-44); MD NO; MEAN CORPUSCULAR HEMOGLOBIN 31.3 pg (27.0-34.8); MEAN CORPUSCULAR HGB CONC 34.7 g/dL (32.4-35.8); MEAN CORPUSCULAR VOLUME 90.2 fL (80-100); MEAN PLATELET VOLUME 7.2 fL (7.4-10.4); MONOCYTES # (AUTO) 0.91 x10^3/uL (0.2-0.8); MONOCYTES % (AUTO) 7 % (2-9); NEUTROPHILS # (AUTO) 11.15 x10^3/uL (1.8-6.8); NEUTROPHILS % (AUTO) 82 % (42-75); PLATELET COUNT 418 x10^3/uL (130-400); RED BLOOD COUNT 3.25 x10^6/uL (3.82-5.3); RED CELL DISTRIBUTION WIDTH 13.7 % (9.6-15.2)
[2018-08-25 06:20] VITALS: BP 161/69
[2018-08-25 06:21] LABS: ALBUMIN 1.6 g/dL (3.4-5.0); ANION GAP 5 mmol/L (5-15); CALCIUM 8.3 mg/dL (8.5-10.1); CHLORIDE 100 mmol/L (98-107); CREATININE 0.68 mg/dL (0.55-1.02)
[2018-08-25 07:10] VITALS: BP 109/70
[2018-08-25] MEDS: SODIUM CHLORIDE 0.9% 1,000 ML IV SCH (08:00)
[2018-08-25] MEDS: BENZONATATE 100 MG CAPSULE PO SCH ×3 (08:32→21:26)
[2018-08-25] MEDS: SPIRONOLACT/HCTZ 25/25MG TABLET PO SCH (08:32)
[2018-08-25] MEDS: PANTOPRAZOLE 40 MG IV IVPush SCH (08:32)
[2018-08-25] MEDS: POLYETHYLENE GLYCOL 17 GM PACKET PO SCH (08:33)
[2018-08-25] MEDS: GUAIFENESIN ER 600 MG TABLET PO SCH ×3 (08:34→21:26)
[2018-08-25] MEDS: CHOLECALCIFEROL 5,000u TAB PO SCH (08:34)
[2018-08-25] MEDS: LISINOPRIL 10 MG TABLET PO SCH (08:34)
[2018-08-25] MEDS: ERGOCALCIFEROL 50,000 UNIT CAPSULE HOMEMEDPO SCH (08:50)
[2018-08-25] MEDS: METHOCARBAMOL 500 MG TABLET PO PRN ×2 (10:31→17:22)
[2018-08-25] MEDS: CEFTAROLINE 600 MG in SODIUM CHLORIDE 0.9% 100 ML IV SCH (13:14)
[2018-08-25] MEDS: LIDODERM 5% PATCH TD SCH (13:14)
[2018-08-25] MEDS ORDERED: BENZ-17 PO (13:22)
[2018-08-25] MEDS ORDERED: CHOL500015 PO (13:22)
[2018-08-25] MEDS ORDERED: GUAI600T31 PO (13:22)
[2018-08-25] MEDS ORDERED: ALPR0.254 PO (13:22)
[2018-08-25 13:30] VITALS: BP 101/64
[2018-08-25] MEDS: ACETAMINOPHEN 325 MG TABLET PO PRN (13:48)
[2018-08-25 19:38] VITALS: BP 115/74
[2018-08-25] MEDS: GUAIFENESIN/COD200MG-20MG/10ML LIQUID PO PRN (21:26)
[2018-08-26] MEDS: CEFTAROLINE 600 MG in SODIUM CHLORIDE 0.9% 100 ML IV SCH ×2 (00:16→12:37)
[2018-08-26 04:40] VITALS: BP 120/75
[2018-08-26] MEDS: METHOCARBAMOL 500 MG TABLET PO PRN ×3 (05:10→20:05)
[2018-08-26] MEDS: ALBUTEROL SULFATE 2.5 MG/3 ML NPPB SCH ×5 (07:00→22:19)
[2018-08-26 08:33] VITALS: BP 126/76
[2018-08-26] MEDS: LISINOPRIL 10 MG TABLET PO SCH (08:33)
[2018-08-26] MEDS: GUAIFENESIN ER 600 MG TABLET PO SCH ×3 (08:33→19:43)
[2018-08-26] MEDS: SPIRONOLACT/HCTZ 25/25MG TABLET PO SCH (08:33)
[2018-08-26] MEDS: BENZONATATE 100 MG CAPSULE PO SCH ×3 (08:33→19:43)
[2018-08-26] MEDS: CHOLECALCIFEROL 5,000u TAB PO SCH (08:34)
[2018-08-26] MEDS: LIDODERM 5% PATCH TD SCH (12:08)
[2018-08-26] MEDS: GUAIFENESIN/COD200MG-20MG/10ML LIQUID PO PRN ×2 (12:11→22:14)
[2018-08-26] MEDS: ACETAMINOPHEN 325 MG TABLET PO PRN (12:19)
[2018-08-26 14:01] VITALS: BP 104/68
[2018-08-26] MEDS ORDERED: SUMATRIPTAN 50 MG TABLET PO ONE ×2 (14:30)
[2018-08-26] MEDS: SUMATRIPTAN 100 MG TABLET PO PRN (19:43)
[2018-08-26 20:00] VITALS: BP 129/75
[2018-08-27] MEDS: CEFTAROLINE 600 MG in SODIUM CHLORIDE 0.9% 100 ML IV SCH ×2 (00:41→12:09)
[2018-08-27 03:00] VITALS: BP 115/75
[2018-08-27] MEDS: METHOCARBAMOL 500 MG TABLET PO PRN ×3 (04:42→18:11)
[2018-08-27] MEDS: ALBUTEROL SULFATE 2.5 MG/3 ML NPPB SCH ×4 (06:50→17:45)
[2018-08-27 07:18] VITALS: BP 124/71
[2018-08-27] MEDS: GUAIFENESIN ER 600 MG TABLET PO SCH ×3 (07:57→20:25)
[2018-08-27] MEDS: BENZONATATE 100 MG CAPSULE PO SCH ×3 (07:57→20:25)
[2018-08-27] MEDS: SPIRONOLACT/HCTZ 25/25MG TABLET PO SCH (07:57)
[2018-08-27] MEDS: LISINOPRIL 10 MG TABLET PO SCH (07:58)
[2018-08-27] MEDS: LIDODERM 5% PATCH TD SCH (08:00)
[2018-08-27] MEDS: ACETAMINOPHEN 325 MG TABLET PO PRN (09:20)
[2018-08-27] MEDS: CHOLECALCIFEROL 5,000u TAB PO SCH (09:20)
[2018-08-27 13:44] VITALS: BP 102/68
[2018-08-27 18:54] VITALS: BP 103/68
[2018-08-27] MEDS: GUAIFENESIN/COD200MG-20MG/10ML LIQUID PO PRN (22:09)
[2018-08-28] MEDS: CEFTAROLINE 600 MG in SODIUM CHLORIDE 0.9% 100 ML IV SCH ×2 (00:29→12:14)
[2018-08-28 00:50] VITALS: BP 104/69
[2018-08-28] MEDS: ALBUTEROL SULFATE 2.5 MG/3 ML NPPB SCH ×4 (07:35→17:41)
[2018-08-28] MEDS: METHOCARBAMOL 500 MG TABLET PO PRN ×3 (08:25→20:58)
[2018-08-28 08:28] VITALS: BP 124/83
[2018-08-28] MEDS: BENZONATATE 100 MG CAPSULE PO SCH ×3 (08:59→20:58)
[2018-08-28] MEDS: GUAIFENESIN ER 600 MG TABLET PO SCH ×3 (08:59→20:58)
[2018-08-28] MEDS: CHOLECALCIFEROL 5,000u TAB PO SCH (08:59)
[2018-08-28] MEDS: LISINOPRIL 10 MG TABLET PO SCH (09:00)
[2018-08-28] MEDS: SPIRONOLACT/HCTZ 25/25MG TABLET PO SCH (09:01)
[2018-08-28] MEDS: LIDODERM 5% PATCH TD SCH (12:00)
[2018-08-28 12:59] VITALS: BP 104/69
[2018-08-28] MEDS: GUAIFENESIN/COD200MG-20MG/10ML LIQUID PO PRN (14:49)
[2018-08-28 18:48] VITALS: BP 119/75
[2018-08-29] MEDS: CEFTAROLINE 600 MG in SODIUM CHLORIDE 0.9% 100 ML IV SCH ×2 (00:21→12:38)
[2018-08-29 01:29] VITALS: BP 117/73
[2018-08-29] MEDS: METHOCARBAMOL 500 MG TABLET PO PRN ×3 (04:42→17:41)
[2018-08-29 05:02] LABS: BASOPHILS # (AUTO) 0.06 x10^3/uL (0-0.1); BASOPHILS % (AUTO) 1 % (0-1); EOSINOPHILS # (AUTO) 0.29 x10^3/uL (0-0.4); EOSINOPHILS % (AUTO) 3 % (1-7); LYMPHOCYTES # (AUTO) 1.15 x10^3/uL (1-3.4); LYMPHOCYTES % (AUTO) 14 % (22-44); MD NO; MEAN CORPUSCULAR HEMOGLOBIN 30.7 pg (27.0-34.8); MEAN CORPUSCULAR HGB CONC 33.9 g/dL (32.4-35.8); MEAN CORPUSCULAR VOLUME 90.4 fL (80-100); MEAN PLATELET VOLUME 6.8 fL (7.4-10.4); MONOCYTES # (AUTO) 0.59 x10^3/uL (0.2-0.8); MONOCYTES % (AUTO) 7 % (2-9); NEUTROPHILS # (AUTO) 6.43 x10^3/uL (1.8-6.8); NEUTROPHILS % (AUTO) 75 % (42-75); PLATELET COUNT 542 x10^3/uL (130-400); RED BLOOD COUNT 3.16 x10^6/uL (3.82-5.3); RED CELL DISTRIBUTION WIDTH 13.6 % (9.6-15.2)
[2018-08-29 05:06] LABS: ALBUMIN 1.8 g/dL (3.4-5.0); ANION GAP 6 mmol/L (5-15); CALCIUM 8.8 mg/dL (8.5-10.1); CHLORIDE 101 mmol/L (98-107); CREATININE 0.82 mg/dL (0.55-1.02)
[2018-08-29] MEDS: ALBUTEROL SULFATE 2.5 MG/3 ML NPPB SCH ×4 (07:00→20:00)
[2018-08-29 08:46] VITALS: BP 113/73
[2018-08-29] MEDS: CHOLECALCIFEROL 5,000u TAB PO SCH (08:50)
[2018-08-29] MEDS: GUAIFENESIN ER 600 MG TABLET PO SCH ×3 (08:50→20:58)
[2018-08-29] MEDS: BENZONATATE 100 MG CAPSULE PO SCH ×3 (08:50→20:58)
[2018-08-29] MEDS: SPIRONOLACT/HCTZ 25/25MG TABLET PO SCH (08:50)
[2018-08-29] MEDS: LISINOPRIL 10 MG TABLET PO SCH (08:50)
[2018-08-29] MEDS ORDERED: LIDOCAINE-MPF 1%, 5ML ONE (09:51)
[2018-08-29] MEDS: ACETAMINOPHEN 325 MG TABLET PO PRN (11:56)
[2018-08-29] MEDS: LIDODERM 5% PATCH TD SCH (11:57)
[2018-08-29 12:50] VITALS: BP 110/69
[2018-08-29] MEDS: GUAIFENESIN/COD200MG-20MG/10ML LIQUID PO PRN (17:42)
[2018-08-29 19:00] VITALS: BP 112/75
[2018-08-30] MEDS: CEFTAROLINE 600 MG in SODIUM CHLORIDE 0.9% 100 ML IV SCH ×2 (00:51→12:04)
[2018-08-30] MEDS: METHOCARBAMOL 500 MG TABLET PO PRN ×4 (00:51→22:29)
[2018-08-30 01:18] VITALS: BP 98/66
[2018-08-30 07:21] VITALS: BP 110/70
[2018-08-30] MEDS: SPIRONOLACT/HCTZ 25/25MG TABLET PO SCH (08:20)
[2018-08-30] MEDS: BENZONATATE 100 MG CAPSULE PO SCH ×3 (08:21→20:42)
[2018-08-30] MEDS: GUAIFENESIN ER 600 MG TABLET PO SCH ×3 (08:21→20:42)
[2018-08-30] MEDS: ACETAMINOPHEN 325 MG TABLET PO PRN (08:21)
[2018-08-30] MEDS: LISINOPRIL 10 MG TABLET PO SCH (08:21)
[2018-08-30] MEDS: CHOLECALCIFEROL 5,000u TAB PO SCH (08:21)
[2018-08-30] MEDS: ALBUTEROL SULFATE 2.5 MG/3 ML NPPB SCH ×4 (08:45→18:41)
[2018-08-30] MEDS: LIDODERM 5% PATCH TD SCH (12:00)
[2018-08-30 15:40] VITALS: BP 116/74
[2018-08-30 18:25] VITALS: BP 107/72
[2018-08-30] MEDS: OXYcodone/APAP 5/325MG TABLET PO PRN (20:42)
[2018-08-31] MEDS: CEFTAROLINE 600 MG in SODIUM CHLORIDE 0.9% 100 ML IV SCH ×2 (00:17→12:16)
[2018-08-31 01:57] VITALS: BP 106/71
[2018-08-31 04:29] LABS: BASOPHILS # (AUTO) 0.05 x10^3/uL (0-0.1); BASOPHILS % (AUTO) 1 % (0-1); EOSINOPHILS % (AUTO) 3 % (1-7); LYMPHOCYTES # (AUTO) 0.91 x10^3/uL (1-3.4); LYMPHOCYTES % (AUTO) 13 % (22-44); MD NO; MEAN CORPUSCULAR VOLUME 91.2 fL (80-100); MEAN PLATELET VOLUME 6.8 fL (7.4-10.4); MONOCYTES # (AUTO) 0.48 x10^3/uL (0.2-0.8); MONOCYTES % (AUTO) 7 % (2-9); NEUTROPHILS # (AUTO) 5.58 x10^3/uL (1.8-6.8); NEUTROPHILS % (AUTO) 77 % (42-75); PLATELET COUNT 589 x10^3/uL (130-400); RED BLOOD COUNT 3.19 x10^6/uL (3.82-5.3); RED CELL DISTRIBUTION WIDTH 13.4 % (9.6-15.2)
[2018-08-31] MEDS: ALBUTEROL SULFATE 2.5 MG/3 ML NPPB SCH ×4 (07:46→20:20)
[2018-08-31 07:51] VITALS: BP 102/68
[2018-08-31] MEDS: GUAIFENESIN ER 600 MG TABLET PO SCH ×3 (08:57→20:29)
[2018-08-31] MEDS: CHOLECALCIFEROL 5,000u TAB PO SCH (08:57)
[2018-08-31] MEDS: SPIRONOLACT/HCTZ 25/25MG TABLET PO SCH (08:57)
[2018-08-31] MEDS: METHOCARBAMOL 500 MG TABLET PO PRN ×3 (08:57→21:52)
[2018-08-31] MEDS: LISINOPRIL 10 MG TABLET PO SCH (08:58)
[2018-08-31] MEDS: BENZONATATE 100 MG CAPSULE PO SCH ×3 (08:58→20:29)
[2018-08-31] MEDS ORDERED: ACETAMINOPHEN 325 MG TABLET PO PRN (09:30)
[2018-08-31 12:02] VITALS: BP 106/70
[2018-08-31] MEDS: LIDODERM 5% PATCH TD SCH (12:16)
[2018-08-31] MEDS: HEPARIN 5,000 UNITS/ML, 1ML SQ SCH ×2 (12:16→20:29)
[2018-08-31] MEDS: GUAIFENESIN/COD200MG-20MG/10ML LIQUID PO PRN (18:02)
[2018-08-31 20:30] VITALS: BP 112/71
[2018-09-01] MEDS: CEFTAROLINE 600 MG in SODIUM CHLORIDE 0.9% 100 ML IV SCH ×2 (00:15→12:38)
[2018-09-01 02:29] VITALS: BP 105/69
[2018-09-01] MEDS: HEPARIN 5,000 UNITS/ML, 1ML SQ SCH ×3 (04:41→20:34)
[2018-09-01 05:24] LABS: BASOPHILS # (AUTO) 0.04 x10^3/uL (0-0.1); BASOPHILS % (AUTO) 1 % (0-1); EOSINOPHILS # (AUTO) 0.18 x10^3/uL (0-0.4); EOSINOPHILS % (AUTO) 3 % (1-7); LYMPHOCYTES # (AUTO) 0.93 x10^3/uL (1-3.4); LYMPHOCYTES % (AUTO) 13 % (22-44); MD NO; MEAN CORPUSCULAR HGB CONC 33.3 g/dL (32.4-35.8); MEAN CORPUSCULAR VOLUME 90.3 fL (80-100); MEAN PLATELET VOLUME 6.9 fL (7.4-10.4); MONOCYTES # (AUTO) 0.51 x10^3/uL (0.2-0.8); MONOCYTES % (AUTO) 7 % (2-9); NEUTROPHILS # (AUTO) 5.28 x10^3/uL (1.8-6.8); NEUTROPHILS % (AUTO) 76 % (42-75); PLATELET COUNT 619 x10^3/uL (130-400); RED CELL DISTRIBUTION WIDTH 13.9 % (9.6-15.2)
[2018-09-01 05:36] LABS: ANION GAP 8 mmol/L (5-15); CHLORIDE 101 mmol/L (98-107)
[2018-09-01 05:44] LABS: % IRON SATURATION 13 % (20-55); ALANINE AMINOTRANSFERASE 84 U/L (12-78); ALKALINE PHOSPHATASE 81 U/L (45-117); BILIRUBIN,TOTAL 0.3 mg/dL (0.2-1.0); CREATININE 0.97 mg/dL (0.55-1.02); IRON LEVEL 23 mcg/dL (50-170); TOTAL IRON BINDING CAPACITY 177 mcg/dL (250-450); TOTAL PROTEIN 7.5 g/dL (6.4-8.2)
[2018-09-01 05:53] LABS: HCT (SEDRATE) 29.8 % (34.6-47.8)
[2018-09-01 06:32] VITALS: BP 110/60
[2018-09-01] MEDS: ALBUTEROL SULFATE 2.5 MG/3 ML NPPB SCH ×4 (07:00→19:51)
[2018-09-01] MEDS: LISINOPRIL 10 MG TABLET PO SCH (08:05)
[2018-09-01] MEDS: ERGOCALCIFEROL 50,000 UNIT CAPSULE HOMEMEDPO SCH (08:05)
[2018-09-01] MEDS: SPIRONOLACT/HCTZ 25/25MG TABLET PO SCH (08:05)
[2018-09-01] MEDS: METHOCARBAMOL 500 MG TABLET PO PRN ×2 (08:06→16:02)
[2018-09-01] MEDS: BENZONATATE 100 MG CAPSULE PO SCH ×3 (08:06→20:35)
[2018-09-01] MEDS: GUAIFENESIN ER 600 MG TABLET PO SCH ×3 (08:06→20:35)
[2018-09-01] MEDS: CHOLECALCIFEROL 5,000u TAB PO SCH (08:06)
[2018-09-01] MEDS: GUAIFENESIN/COD200MG-20MG/10ML LIQUID PO PRN ×3 (11:48→20:34)
[2018-09-01] MEDS: LIDODERM 5% PATCH TD SCH (12:38)
[2018-09-01 12:46] VITALS: BP 114/80
[2018-09-01] MEDS: FERROUS SULFATE 325 MG TABLET PO SCH (16:00)
[2018-09-01 20:18] VITALS: BP 104/58
[2018-09-02] MEDS: CEFTAROLINE 600 MG in SODIUM CHLORIDE 0.9% 100 ML IV SCH ×3 (00:35→15:03)
[2018-09-02] MEDS ORDERED: CATHFLO-ALTEPLASE 2 MG/2 ML CATHFLUSH ONE ×2 (01:00→10:00)
[2018-09-02 01:51] VITALS: BP 98/67
[2018-09-02] MEDS: HEPARIN 5,000 UNITS/ML, 1ML SQ SCH ×3 (03:22→20:00)
[2018-09-02] MEDS: METHOCARBAMOL 500 MG TABLET PO PRN ×3 (03:22→17:17)
[2018-09-02 06:38] VITALS: BP 115/80
[2018-09-02] MEDS: ALBUTEROL SULFATE 2.5 MG/3 ML NPPB SCH ×4 (06:55→18:59)
[2018-09-02] MEDS: CHOLECALCIFEROL 5,000u TAB PO SCH (08:58)
[2018-09-02] MEDS: BENZONATATE 100 MG CAPSULE PO SCH ×3 (08:58→21:22)
[2018-09-02] MEDS: GUAIFENESIN ER 600 MG TABLET PO SCH ×3 (08:59→21:22)
[2018-09-02] MEDS: LISINOPRIL 10 MG TABLET PO SCH (08:59)
[2018-09-02] MEDS: LIDODERM 5% PATCH TD SCH (12:00)
[2018-09-02 12:31] VITALS: BP 111/74
[2018-09-02] MEDS: GUAIFENESIN/COD200MG-20MG/10ML LIQUID PO PRN ×2 (14:27→21:22)
[2018-09-02] MEDS: ONDANSETRON 2MG/ML, 2ML IVPush PRN (17:17)
[2018-09-02] MEDS ORDERED: OMNIPAQUE 350 MG/ML, 100ML BOTTLE ONE (20:33)
[2018-09-02 21:41] VITALS: BP 93/59
[2018-09-03] MEDS: HEPARIN 5,000 UNITS/ML, 1ML SQ SCH ×3 (03:16→22:52)
[2018-09-03] MEDS: CEFTAROLINE 600 MG in SODIUM CHLORIDE 0.9% 100 ML IV SCH ×2 (03:17→15:00)
[2018-09-03 03:20] VITALS: BP 110/67
[2018-09-03] MEDS: GUAIFENESIN/COD200MG-20MG/10ML LIQUID PO PRN ×2 (06:32→23:49)
[2018-09-03 06:50] VITALS: BP 109/69
[2018-09-03] MEDS: ALBUTEROL SULFATE 2.5 MG/3 ML NPPB SCH ×4 (07:00→17:31)
[2018-09-03] MEDS: GUAIFENESIN ER 600 MG TABLET PO SCH ×3 (08:42→22:53)
[2018-09-03] MEDS: LISINOPRIL 10 MG TABLET PO SCH (08:42)
[2018-09-03] MEDS: BENZONATATE 100 MG CAPSULE PO SCH ×3 (08:42→22:53)
[2018-09-03] MEDS: CHOLECALCIFEROL 5,000u TAB PO SCH (08:52)
[2018-09-03] MEDS ORDERED: SODIUM CHLORIDE 0.9% 1,000 ML IV SCH (09:00)
[2018-09-03] MEDS ORDERED: SUCCINYLCHOLINE 20 MG/ML, 10ML ONE (10:20)
[2018-09-03] MEDS ORDERED: ROCURONIUM 10MG/ML,5ML ONE (10:20)
[2018-09-03] MEDS ORDERED: ALBUTEROL SULFATE 200 PUFFS/8.5 GR INH ONE (10:20)
[2018-09-03] MEDS ORDERED: PROPOFOL 10 MG/ML, 20ML ONE (10:20)
[2018-09-03] MEDS ORDERED: DEXAMETHASONE 4 MG/ML, 1ML ONE (10:20)
[2018-09-03] MEDS ORDERED: ONDANSETRON 2MG/ML, 2ML ONE (10:20)
[2018-09-03] MEDS: LIDODERM 5% PATCH TD SCH (12:00)
[2018-09-03 12:40] LABS: ANION GAP 8 mmol/L (5-15); CALCIUM 7.9 mg/dL (8.5-10.1); CHLORIDE 106 mmol/L (98-107); CREATININE 0.87 mg/dL (0.55-1.02)
[2018-09-03] MEDS ORDERED: MIDAZOLAM 1 MG/ML, 2ML ONE (12:55)
[2018-09-03] MEDS ORDERED: PROPOFOL 50 ML ONE ×2 (12:55→13:36)
[2018-09-03] MEDS ORDERED: FENTANYL PF 250 MCG/5ML ONE (12:55)
[2018-09-03] MEDS ORDERED: BUPIVACAINE/PF-EPI 0.5% 1:200K ONE (13:17)
[2018-09-03] MEDS ORDERED: MORPHINE SULFATE 4 MG/ML, 1ML IVPush PRN (14:30)
[2018-09-03] MEDS ORDERED: EPHEDRINE 50 MG/ML, 1ML IVPush PRN (14:30)
[2018-09-03] MEDS ORDERED: PROMETHAZINE 12.5 MG SUPP PR PRN (14:30)
[2018-09-03] MEDS ORDERED: EPHEDRINE 50 MG/ML, 1ML IM PRN (14:30)
[2018-09-03] MEDS ORDERED: ALBUTEROL SULFATE 2.5 MG/3 ML NPPB PRN (14:30)
[2018-09-03] MEDS ORDERED: PROMETHAZINE 25 MG/ML, 1ML IV PRN (14:30)
[2018-09-03] MEDS ORDERED: MIDAZOLAM 1 MG/ML, 2ML IV PRN (14:30)
[2018-09-03] MEDS ORDERED: ONDANSETRON ODT 8 MG PO PRN (14:30)
[2018-09-03] MEDS ORDERED: PROMETHAZINE 25 MG SUPP PR PRN (14:30)
[2018-09-03] MEDS ORDERED: DIPHENHYDRAMINE 50 MG/ML, 1ML IVPush PRN (14:30)
[2018-09-03] MEDS ORDERED: OXYcodone 5 MG/5 ML ORAL.SOL UDC PO PRN (14:30)
[2018-09-03] MEDS ORDERED: ONDANSETRON 2MG/ML, 2ML IV PRN (14:30)
[2018-09-03] MEDS ORDERED: MEPERIDINE/PF 25MG/0.5ML IVPush PRN (14:30)
[2018-09-03 15:00] VITALS: BP 99/66
[2018-09-03] MEDS ORDERED: FENTANYL PF 100 MCG/2ML ONE ×3 (15:29→16:43)
[2018-09-03] MEDS: FERROUS SULFATE 325 MG TABLET PO SCH (16:00)
[2018-09-03] MEDS: FENTANYL PF 100 MCG/2ML IV PRN ×4 (16:05→16:45)
[2018-09-03] MEDS ORDERED: MORPHINE SULFATE 4 MG/ML, 1ML ONE (16:15)
[2018-09-03] MEDS ORDERED: OXYcodone 5 MG/5 ML ORAL.SOL UDC ONE (16:24)
[2018-09-03] MEDS ORDERED: HYDROmorphone PCA 30 MG/30 ML IV PRN ×2 (16:30→17:44)
[2018-09-03] MEDS ORDERED: ACETAMINOPHEN 500 MG TABLET PO SCH (18:00)
[2018-09-03 18:30] VITALS: BP 99/66
[2018-09-03] MEDS: ACETAMINOPHEN 500 MG TABLET PO SCH ×2 (18:41→22:54)
[2018-09-03] MEDS: IBUPROFEN 800 MG TABLET PO SCH (18:42)
[2018-09-03] MEDS: ONDANSETRON 2MG/ML, 2ML IVPush PRN (22:54)
[2018-09-04] MEDS: ALBUTEROL SULFATE 2.5 MG/3 ML NPPB PRN ×2 (00:55→22:55)
[2018-09-04 02:03] VITALS: BP 107/62
[2018-09-04] MEDS: CEFTAROLINE 600 MG in SODIUM CHLORIDE 0.9% 100 ML IV SCH ×3 (03:04→20:05)
[2018-09-04] MEDS: ONDANSETRON 2MG/ML, 2ML IVPush PRN ×2 (03:50→11:32)
[2018-09-04 04:49] VITALS: BP 113/76
[2018-09-04] MEDS: HEPARIN 5,000 UNITS/ML, 1ML SQ SCH ×3 (05:32→22:39)
[2018-09-04] MEDS: ACETAMINOPHEN 500 MG TABLET PO SCH ×5 (05:32→22:38)
[2018-09-04 05:51] LABS: BASOPHILS # (AUTO) 0.01 x10^3/uL (0-0.1); BASOPHILS % (AUTO) 0 % (0-1); EOSINOPHILS # (AUTO) 0.01 x10^3/uL (0-0.4); EOSINOPHILS % (AUTO) 0 % (1-7); LYMPHOCYTES # (AUTO) 0.54 x10^3/uL (1-3.4); LYMPHOCYTES % (AUTO) 5 % (22-44); MD NO; MEAN CORPUSCULAR HEMOGLOBIN 30.7 pg (27.0-34.8); MEAN CORPUSCULAR HGB CONC 34.1 g/dL (32.4-35.8); MEAN CORPUSCULAR VOLUME 90.2 fL (80-100); MEAN PLATELET VOLUME 6.8 fL (7.4-10.4); MONOCYTES # (AUTO) 0.39 x10^3/uL (0.2-0.8); MONOCYTES % (AUTO) 4 % (2-9); NEUTROPHILS # (AUTO) 9.54 x10^3/uL (1.8-6.8); NEUTROPHILS % (AUTO) 91 % (42-75); PLATELET COUNT 546 x10^3/uL (130-400); RED BLOOD COUNT 3.09 x10^6/uL (3.82-5.3); RED CELL DISTRIBUTION WIDTH 13.5 % (9.6-15.2)
[2018-09-04 05:52] LABS: ANION GAP 9 mmol/L (5-15); CALCIUM 9.2 mg/dL (8.5-10.1); CHLORIDE 100 mmol/L (98-107); CREATININE 1.08 mg/dL (0.55-1.02)
[2018-09-04 07:28] VITALS: BP 99/64
[2018-09-04] MEDS: ALBUTEROL SULFATE 2.5 MG/3 ML NPPB SCH ×4 (07:30→19:33)
[2018-09-04] MEDS: IBUPROFEN 800 MG TABLET PO SCH ×3 (08:00→16:35)
[2018-09-04] MEDS: CHOLECALCIFEROL 5,000u TAB PO SCH (09:00)
[2018-09-04] MEDS: BENZONATATE 100 MG CAPSULE PO SCH ×3 (09:00→20:06)
[2018-09-04] MEDS: LISINOPRIL 10 MG TABLET PO SCH (09:00)
[2018-09-04] MEDS: GUAIFENESIN ER 600 MG TABLET PO SCH ×3 (09:00→20:05)
[2018-09-04] MEDS: GUAIFENESIN/COD200MG-20MG/10ML LIQUID PO PRN ×3 (11:32→22:37)
[2018-09-04 14:38] VITALS: BP 107/63
[2018-09-04] MEDS: PROMETHAZINE 25 MG/ML, 1ML IM PRN ×2 (16:33→22:55)
[2018-09-04] MEDS: LIDODERM 5% PATCH TD SCH (16:35)
[2018-09-04] MEDS: SUMATRIPTAN 100 MG TABLET PO PRN (17:49)
[2018-09-04] MEDS: METHOCARBAMOL 500 MG TABLET PO PRN (17:49)
[2018-09-04 20:21] VITALS: BP 105/70
[2018-09-05] MEDS: METHOCARBAMOL 500 MG TABLET PO PRN ×3 (00:12→12:44)
[2018-09-05 02:15] VITALS: BP 114/76
[2018-09-05] MEDS: CEFTAROLINE 600 MG in SODIUM CHLORIDE 0.9% 100 ML IV SCH ×3 (03:52→20:13)
[2018-09-05] MEDS: ACETAMINOPHEN 500 MG TABLET PO SCH ×4 (06:11→23:27)
[2018-09-05] MEDS: GUAIFENESIN/COD200MG-20MG/10ML LIQUID PO PRN (06:16)
[2018-09-05 06:36] LABS: BASOPHILS # (AUTO) 0.06 x10^3/uL (0-0.1); BASOPHILS % (AUTO) 1 % (0-1); EOSINOPHILS # (AUTO) 0.47 x10^3/uL (0-0.4); EOSINOPHILS % (AUTO) 6 % (1-7); LYMPHOCYTES # (AUTO) 0.82 x10^3/uL (1-3.4); LYMPHOCYTES % (AUTO) 10 % (22-44); MD NO; MEAN CORPUSCULAR HEMOGLOBIN 30.6 pg (27.0-34.8); MEAN CORPUSCULAR HGB CONC 34.2 g/dL (32.4-35.8); MEAN CORPUSCULAR VOLUME 89.3 fL (80-100); MEAN PLATELET VOLUME 7.1 fL (7.4-10.4); MONOCYTES # (AUTO) 0.76 x10^3/uL (0.2-0.8); MONOCYTES % (AUTO) 9 % (2-9); NEUTROPHILS # (AUTO) 6.04 x10^3/uL (1.8-6.8); NEUTROPHILS % (AUTO) 74 % (42-75); PLATELET COUNT 699 x10^3/uL (130-400); RED BLOOD COUNT 3.06 x10^6/uL (3.82-5.3); RED CELL DISTRIBUTION WIDTH 13.9 % (9.6-15.2)
[2018-09-05 06:54] LABS: CHLORIDE 102 mmol/L (98-107)
[2018-09-05 07:17] LABS: ALANINE AMINOTRANSFERASE 49 U/L (12-78); ALBUMIN 1.9 g/dL (3.4-5.0); ALKALINE PHOSPHATASE 86 U/L (45-117); ANION GAP 6 mmol/L (5-15); BILIRUBIN,TOTAL 0.2 mg/dL (0.2-1.0); CALCIUM 8.8 mg/dL (8.5-10.1); CREATININE 1.04 mg/dL (0.55-1.02); TOTAL PROTEIN 6.9 g/dL (6.4-8.2)
[2018-09-05 07:44] VITALS: BP 99/66
[2018-09-05] MEDS: LISINOPRIL 10 MG TABLET PO SCH (08:28)
[2018-09-05] MEDS: BENZONATATE 100 MG CAPSULE PO SCH ×3 (08:28→20:13)
[2018-09-05] MEDS: HEPARIN 5,000 UNITS/ML, 1ML SQ SCH ×3 (08:28→23:26)
[2018-09-05] MEDS: IBUPROFEN 800 MG TABLET PO SCH ×3 (08:28→17:46)
[2018-09-05] MEDS: GUAIFENESIN ER 600 MG TABLET PO SCH ×3 (08:28→20:13)
[2018-09-05] MEDS: CHOLECALCIFEROL 5,000u TAB PO SCH (08:29)
[2018-09-05] MEDS: ALBUTEROL SULFATE 2.5 MG/3 ML NPPB SCH ×4 (08:42→20:00)
[2018-09-05] MEDS: LIDODERM 5% PATCH TD SCH (12:43)
[2018-09-05 14:49] VITALS: BP 94/59
[2018-09-05] MEDS: FERROUS SULFATE 325 MG TABLET PO SCH (16:16)
[2018-09-05 20:00] VITALS: BP 98/63
[2018-09-06] MEDS: ALBUTEROL SULFATE 2.5 MG/3 ML NPPB PRN ×2 (00:06→05:15)
[2018-09-06 01:16] VITALS: BP 96/58
[2018-09-06] MEDS: CEFTAROLINE 600 MG in SODIUM CHLORIDE 0.9% 100 ML IV SCH ×3 (03:38→20:21)
[2018-09-06] MEDS: ALBUTEROL SULFATE 2.5 MG/3 ML NPPB SCH ×4 (05:17→21:22)
[2018-09-06 05:25] LABS: MEAN CORPUSCULAR HEMOGLOBIN 29.8 pg (27.0-34.8); MEAN CORPUSCULAR VOLUME 90.2 fL (80-100); MEAN PLATELET VOLUME 6.7 fL (7.4-10.4); PLATELET COUNT 586 x10^3/uL (130-400); RED BLOOD COUNT 2.56 x10^6/uL (3.82-5.3); RED CELL DISTRIBUTION WIDTH 13.7 % (9.6-15.2)
[2018-09-06 05:29] LABS: ALBUMIN 1.7 g/dL (3.4-5.0); ANION GAP 7 mmol/L (5-15); CALCIUM 7.9 mg/dL (8.5-10.1); CHLORIDE 106 mmol/L (98-107)
[2018-09-06 05:35] LABS: ALANINE AMINOTRANSFERASE 40 U/L (12-78); ALKALINE PHOSPHATASE 81 U/L (45-117); BILIRUBIN,TOTAL 0.2 mg/dL (0.2-1.0); CREATININE 0.88 mg/dL (0.55-1.02); TOTAL PROTEIN 5.9 g/dL (6.4-8.2)
[2018-09-06 05:52] LABS: BASOPHILS % (AUTO) 0 % (0-1); EOSINOPHILS # (AUTO) 0.48 x10^3/uL (0-0.4); EOSINOPHILS % (AUTO) 8 % (1-7); LYMPHOCYTES # (AUTO) 0.56 x10^3/uL (1-3.4); LYMPHOCYTES % (AUTO) 9 % (22-44); MD SCAN; MONOCYTES # (AUTO) 0.24 x10^3/uL (0.2-0.8); MONOCYTES % (AUTO) 4 % (2-9); NEUTROPHILS # (AUTO) 4.73 x10^3/uL (1.8-6.8); NEUTROPHILS % (AUTO) 79 % (42-75)
[2018-09-06] MEDS: ACETAMINOPHEN 500 MG TABLET PO SCH ×3 (06:00→17:39)
[2018-09-06] MEDS: GUAIFENESIN/COD200MG-20MG/10ML LIQUID PO PRN ×2 (06:26→14:15)
[2018-09-06] MEDS: METHOCARBAMOL 500 MG TABLET PO PRN ×2 (06:26→14:15)
[2018-09-06] MEDS: HEPARIN 5,000 UNITS/ML, 1ML SQ SCH ×2 (07:23→15:46)
[2018-09-06 08:33] VITALS: BP 115/72
[2018-09-06] MEDS: ONDANSETRON 2MG/ML, 2ML IVPush PRN (08:48)
[2018-09-06] MEDS: GUAIFENESIN ER 600 MG TABLET PO SCH ×3 (08:49→21:00)
[2018-09-06] MEDS: BENZONATATE 100 MG CAPSULE PO SCH ×3 (08:49→20:21)
[2018-09-06] MEDS: IBUPROFEN 800 MG TABLET PO SCH ×4 (08:49→17:39)
[2018-09-06] MEDS: CHOLECALCIFEROL 5,000u TAB PO SCH (08:49)
[2018-09-06] MEDS: LIDODERM 5% PATCH TD SCH (12:48)
[2018-09-06 14:01] VITALS: BP 107/70
[2018-09-06] MEDS: SENNA/DOCUSATE TABLET PO PRN (14:15)
[2018-09-06 20:00] VITALS: BP 107/70
[2018-09-07] MEDS: HEPARIN 5,000 UNITS/ML, 1ML SQ SCH ×4 (00:23→23:40)
[2018-09-07] MEDS: ACETAMINOPHEN 500 MG TABLET PO SCH ×5 (00:23→23:40)
[2018-09-07 00:24] VITALS: BP 110/72
[2018-09-07] MEDS: CEFTAROLINE 600 MG in SODIUM CHLORIDE 0.9% 100 ML IV SCH ×3 (03:54→19:42)
[2018-09-07 04:27] LABS: BASOPHILS # (AUTO) 0.02 x10^3/uL (0-0.1); BASOPHILS % (AUTO) 0 % (0-1); EOSINOPHILS # (AUTO) 0.47 x10^3/uL (0-0.4); EOSINOPHILS % (AUTO) 9 % (1-7); LYMPHOCYTES % (AUTO) 10 % (22-44); MD NO; MEAN CORPUSCULAR HEMOGLOBIN 30.6 pg (27.0-34.8); MEAN CORPUSCULAR HGB CONC 33.9 g/dL (32.4-35.8); MEAN CORPUSCULAR VOLUME 90.2 fL (80-100); MEAN PLATELET VOLUME 6.7 fL (7.4-10.4); MONOCYTES # (AUTO) 0.39 x10^3/uL (0.2-0.8); MONOCYTES % (AUTO) 8 % (2-9); NEUTROPHILS # (AUTO) 3.75 x10^3/uL (1.8-6.8); NEUTROPHILS % (AUTO) 73 % (42-75); PLATELET COUNT 632 x10^3/uL (130-400); RED BLOOD COUNT 2.81 x10^6/uL (3.82-5.3)
[2018-09-07 06:55] VITALS: BP 114/72
[2018-09-07] MEDS: ALBUTEROL SULFATE 2.5 MG/3 ML NPPB SCH ×4 (07:15→20:45)
[2018-09-07] MEDS: GUAIFENESIN ER 600 MG TABLET PO SCH ×3 (08:28→21:25)
[2018-09-07] MEDS: BENZONATATE 100 MG CAPSULE PO SCH ×3 (08:28→21:29)
[2018-09-07] MEDS: CHOLECALCIFEROL 5,000u TAB PO SCH (08:29)
[2018-09-07] MEDS: IBUPROFEN 800 MG TABLET PO SCH ×3 (08:29→17:42)
[2018-09-07] MEDS: ONDANSETRON 2MG/ML, 2ML IVPush PRN (11:17)
[2018-09-07] MEDS: FLUTICASONE NASAL SPRAY 16GM NAS SCH ×2 (12:03→21:25)
[2018-09-07] MEDS: GUAIFENESIN/COD200MG-20MG/10ML LIQUID PO PRN (12:03)
[2018-09-07] MEDS: LIDODERM 5% PATCH TD SCH (12:05)
[2018-09-07 12:44] VITALS: BP 102/65
[2018-09-07] MEDS: FERROUS SULFATE 325 MG TABLET PO SCH (15:49)
[2018-09-07] MEDS: METHOCARBAMOL 500 MG TABLET PO PRN (17:42)
[2018-09-07 19:44] VITALS: BP 91/58
[2018-09-08 02:30] VITALS: BP 99/61
[2018-09-08] MEDS: CEFTAROLINE 600 MG in SODIUM CHLORIDE 0.9% 100 ML IV SCH ×3 (03:49→19:53)
[2018-09-08 04:31] LABS: HCT (SEDRATE) 26.6 % (34.6-47.8)
[2018-09-08 04:44] LABS: ALANINE AMINOTRANSFERASE 45 U/L (12-78); ALBUMIN 1.8 g/dL (3.4-5.0); ANION GAP 9 mmol/L (5-15); CALCIUM 9.6 mg/dL (8.5-10.1); CHLORIDE 105 mmol/L (98-107); CREATININE 1.46 mg/dL (0.55-1.02)
[2018-09-08 04:51] LABS: ALKALINE PHOSPHATASE 111 U/L (45-117); BILIRUBIN,TOTAL 0.2 mg/dL (0.2-1.0); TOTAL PROTEIN 6.3 g/dL (6.4-8.2)
[2018-09-08 05:14] LABS: SEDIMENTATION RATE > 120 mm/hr (0-20)
[2018-09-08] MEDS: ACETAMINOPHEN 500 MG TABLET PO SCH ×5 (06:00→21:00)
[2018-09-08 06:33] VITALS: BP 110/71
[2018-09-08] MEDS: ALBUTEROL SULFATE 2.5 MG/3 ML NPPB SCH ×4 (06:43→22:15)
[2018-09-08] MEDS: HEPARIN 5,000 UNITS/ML, 1ML SQ SCH ×2 (07:05→16:41)
[2018-09-08] MEDS: SODIUM CHLORIDE 0.9% 1,000 ML IV SCH ×2 (07:10→16:42)
[2018-09-08] MEDS: ONDANSETRON 2MG/ML, 2ML IVPush PRN ×2 (07:10→19:53)
[2018-09-08] MEDS: CHOLECALCIFEROL 5,000u TAB PO SCH (08:23)
[2018-09-08] MEDS: BENZONATATE 100 MG CAPSULE PO SCH ×3 (08:23→21:00)
[2018-09-08] MEDS: GUAIFENESIN ER 600 MG TABLET PO SCH ×3 (08:23→21:00)
[2018-09-08] MEDS: FLUTICASONE NASAL SPRAY 16GM NAS SCH ×2 (08:23→21:52)
[2018-09-08] MEDS ORDERED: OXYcodone/APAP 5/325MG TABLET PO PRN (09:30)
[2018-09-08] MEDS: ERGOCALCIFEROL 50,000 UNIT CAPSULE HOMEMEDPO SCH (11:12)
[2018-09-08] MEDS: LIDODERM 5% PATCH TD SCH (11:13)
[2018-09-08] MEDS: METHOCARBAMOL 500 MG TABLET PO PRN (11:39)
[2018-09-08 13:47] VITALS: BP 100/60
[2018-09-08] MEDS: ONDANSETRON ODT 4 MG PO PRN (14:47)
[2018-09-08] MEDS: OXYcodone IR 5MG TABLET PO PRN (14:47)
[2018-09-08] MEDS: SUMATRIPTAN 100 MG TABLET PO PRN (16:41)
[2018-09-08] MEDS: PROMETHAZINE 25 MG/ML, 1ML IM PRN ×2 (16:41→22:34)
[2018-09-08 19:41] VITALS: BP 134/87
[2018-09-08] MEDS ORDERED: ALUMINUM/MAG/SIMETHICONE 30 ML UDC ONE (21:50)
[2018-09-08] MEDS: ALUMINUM/MAG/SIMETHICONE 30 ML UDC PO PRN (21:52)
[2018-09-08] MEDS: GUAIFENESIN/COD200MG-20MG/10ML LIQUID PO PRN (22:34)
[2018-09-09] MEDS: HEPARIN 5,000 UNITS/ML, 1ML SQ SCH ×2 (01:25→07:54)
[2018-09-09] MEDS: ACETAMINOPHEN 500 MG TABLET PO SCH ×4 (03:00→21:43)
[2018-09-09] MEDS: SODIUM CHLORIDE 0.9% 1,000 ML IV SCH (03:49)
[2018-09-09] MEDS: CEFTAROLINE 600 MG in SODIUM CHLORIDE 0.9% 100 ML IV SCH ×3 (03:49→19:36)
[2018-09-09 04:02] VITALS: BP 120/78
[2018-09-09 04:43] LABS: ALBUMIN 1.7 g/dL (3.4-5.0); ANION GAP 6 mmol/L (5-15); CALCIUM 8.2 mg/dL (8.5-10.1); CHLORIDE 109 mmol/L (98-107)
[2018-09-09 04:47] LABS: ALANINE AMINOTRANSFERASE 60 U/L (12-78); ALKALINE PHOSPHATASE 126 U/L (45-117); BILIRUBIN,TOTAL 0.3 mg/dL (0.2-1.0); CREATININE 0.97 mg/dL (0.55-1.02); TOTAL PROTEIN 6.2 g/dL (6.4-8.2)
[2018-09-09 06:46] VITALS: BP 130/83
[2018-09-09] MEDS: ALBUTEROL SULFATE 2.5 MG/3 ML NPPB SCH ×4 (07:00→20:00)
[2018-09-09] MEDS: CHOLECALCIFEROL 5,000u TAB PO SCH (07:39)
[2018-09-09] MEDS: BENZONATATE 100 MG CAPSULE PO SCH ×3 (07:39→21:43)
[2018-09-09] MEDS: GUAIFENESIN ER 600 MG TABLET PO SCH ×3 (07:39→21:43)
[2018-09-09] MEDS: FLUTICASONE NASAL SPRAY 16GM NAS SCH ×2 (07:39→21:43)
[2018-09-09] MEDS: ONDANSETRON 2MG/ML, 2ML IVPush PRN ×3 (07:40→21:44)
[2018-09-09] MEDS: ALUMINUM/MAG/SIMETHICONE 30 ML UDC PO PRN ×2 (07:40→16:43)
[2018-09-09] MEDS: SODIUM CHLORIDE 0.45% 1,000 ML IV SCH ×3 (09:30→22:14)
[2018-09-09] MEDS ORDERED: SODIUM CHLORIDE 0.45% 1,000 ML IV SCH (09:30)
[2018-09-09] MEDS: LIDODERM 5% PATCH TD SCH (11:09)
[2018-09-09 14:27] VITALS: BP 122/71
[2018-09-09] MEDS: ENOXAPARIN 40 MG/0.4 ML SQ SCH (15:02)
[2018-09-09] MEDS: FERROUS SULFATE 325 MG TABLET PO SCH (15:51)
[2018-09-09] MEDS: PROMETHAZINE 25 MG/ML, 1ML IM PRN (16:00)
[2018-09-09] MEDS ORDERED: HYDR-3240 PO (16:31)
[2018-09-09] MEDS: OXYcodone IR 5MG TABLET PO PRN (16:43)
[2018-09-09] MEDS: ONDANSETRON ODT 4 MG PO PRN (19:36)
[2018-09-09 19:56] VITALS: BP 116/67
[2018-09-10] MEDS: CEFTAROLINE 600 MG in SODIUM CHLORIDE 0.9% 100 ML IV SCH ×3 (03:43→19:40)
[2018-09-10] MEDS: ACETAMINOPHEN 500 MG TABLET PO SCH ×4 (03:44→20:42)
[2018-09-10 03:59] VITALS: BP 137/85
[2018-09-10] MEDS: ALBUTEROL SULFATE 2.5 MG/3 ML NPPB SCH ×4 (07:00→16:24)
[2018-09-10 07:50] LABS: BASOPHILS # (AUTO) 0.04 x10^3/uL (0-0.1); BASOPHILS % (AUTO) 1 % (0-1); EOSINOPHILS # (AUTO) 0.08 x10^3/uL (0-0.4); EOSINOPHILS % (AUTO) 2 % (1-7); HEMOGRAM NOTE LINE DRAW; LYMPHOCYTES # (AUTO) 0.96 x10^3/uL (1-3.4); LYMPHOCYTES % (AUTO) 21 % (22-44); MD NO; MEAN CORPUSCULAR HEMOGLOBIN 29.4 pg (27.0-34.8); MEAN CORPUSCULAR HGB CONC 33.1 g/dL (32.4-35.8); MEAN CORPUSCULAR VOLUME 88.6 fL (80-100); MEAN PLATELET VOLUME 6.3 fL (7.4-10.4); MONOCYTES # (AUTO) 0.34 x10^3/uL (0.2-0.8); MONOCYTES % (AUTO) 7 % (2-9); NEUTROPHILS # (AUTO) 3.22 x10^3/uL (1.8-6.8); NEUTROPHILS % (AUTO) 69 % (42-75); PLATELET COUNT 503 x10^3/uL (130-400); RED BLOOD COUNT 2.97 x10^6/uL (3.82-5.3); RED CELL DISTRIBUTION WIDTH 14.1 % (9.6-15.2)
[2018-09-10] MEDS: ONDANSETRON 2MG/ML, 2ML IVPush PRN ×3 (07:51→20:42)
[2018-09-10 07:54] VITALS: BP 129/79
[2018-09-10] MEDS: METHOCARBAMOL 500 MG TABLET PO PRN ×2 (07:57→15:20)
[2018-09-10] MEDS: BENZONATATE 100 MG CAPSULE PO SCH ×3 (07:57→20:42)
[2018-09-10] MEDS: GUAIFENESIN ER 600 MG TABLET PO SCH ×3 (10:35→20:42)
[2018-09-10] MEDS: OXYcodone IR 5MG TABLET PO PRN ×2 (10:35→21:08)
[2018-09-10] MEDS: FLUTICASONE NASAL SPRAY 16GM NAS SCH ×2 (10:36→21:00)
[2018-09-10] MEDS: SODIUM CHLORIDE 0.45% 1,000 ML IV SCH ×2 (10:41→19:40)
[2018-09-10] MEDS: GUAIFENESIN/COD200MG-20MG/10ML LIQUID PO PRN (10:43)
[2018-09-10] MEDS: ALUMINUM/MAG/SIMETHICONE 30 ML UDC PO PRN ×2 (11:00→20:41)
[2018-09-10] MEDS: PROMETHAZINE 25 MG/ML, 1ML IM PRN (11:01)
[2018-09-10 13:50] VITALS: BP 120/77
[2018-09-10] MEDS: LIDODERM 5% PATCH TD SCH (15:00)
[2018-09-10] MEDS: ENOXAPARIN 40 MG/0.4 ML SQ SCH (15:18)
[2018-09-10 21:51] VITALS: BP 117/75
[2018-09-11] MEDS: CEFTAROLINE 600 MG in SODIUM CHLORIDE 0.9% 100 ML IV SCH ×3 (03:14→20:05)
[2018-09-11] MEDS: ACETAMINOPHEN 500 MG TABLET PO SCH ×5 (03:14→21:00)
[2018-09-11 03:59] VITALS: BP 113/73
[2018-09-11 07:19] VITALS: BP 123/80
[2018-09-11] MEDS: ALBUTEROL SULFATE 2.5 MG/3 ML NPPB SCH ×4 (07:35→20:00)
[2018-09-11] MEDS: FLUTICASONE NASAL SPRAY 16GM NAS SCH ×2 (08:52→21:31)
[2018-09-11] MEDS: GUAIFENESIN ER 600 MG TABLET PO SCH ×4 (08:52→21:00)
[2018-09-11] MEDS: BENZONATATE 100 MG CAPSULE PO SCH ×4 (08:52→21:32)
[2018-09-11] MEDS: ONDANSETRON 2MG/ML, 2ML IVPush PRN ×4 (09:17→21:32)
[2018-09-11] MEDS: SODIUM CHLORIDE 0.45% 1,000 ML IV SCH ×2 (09:23→20:05)
[2018-09-11] MEDS: ALUMINUM/MAG/SIMETHICONE 30 ML UDC PO PRN ×2 (11:48→21:35)
[2018-09-11 12:10] LABS: BASOPHILS # (AUTO) 0.05 x10^3/uL (0-0.1); BASOPHILS % (AUTO) 1 % (0-1); EOSINOPHILS # (AUTO) 0.08 x10^3/uL (0-0.4); EOSINOPHILS % (AUTO) 2 % (1-7); LYMPHOCYTES # (AUTO) 0.89 x10^3/uL (1-3.4); LYMPHOCYTES % (AUTO) 17 % (22-44); MD NO; MEAN CORPUSCULAR HEMOGLOBIN 30.2 pg (27.0-34.8); MEAN CORPUSCULAR VOLUME 88.8 fL (80-100); MEAN PLATELET VOLUME 6.2 fL (7.4-10.4); MONOCYTES # (AUTO) 0.53 x10^3/uL (0.2-0.8); MONOCYTES % (AUTO) 10 % (2-9); NEUTROPHILS % (AUTO) 70 % (42-75); PLATELET COUNT 450 x10^3/uL (130-400); RED CELL DISTRIBUTION WIDTH 14.3 % (9.6-15.2)
[2018-09-11 12:21] LABS: ALANINE AMINOTRANSFERASE 56 U/L (12-78); ALBUMIN 1.8 g/dL (3.4-5.0); ANION GAP 7 mmol/L (5-15); CALCIUM 7.9 mg/dL (8.5-10.1); CHLORIDE 107 mmol/L (98-107); CREATININE 0.77 mg/dL (0.55-1.02)
[2018-09-11 12:23] LABS: ALKALINE PHOSPHATASE 108 U/L (45-117); BILIRUBIN,TOTAL 0.2 mg/dL (0.2-1.0); TOTAL PROTEIN 5.9 g/dL (6.4-8.2)
[2018-09-11] MEDS: PROMETHAZINE 25 MG/ML, 1ML IM PRN (13:58)
[2018-09-11 14:04] VITALS: BP 132/84
[2018-09-11] MEDS: FERROUS SULFATE 325 MG TABLET PO SCH ×2 (15:36→15:46)
[2018-09-11] MEDS: LIDODERM 5% PATCH TD SCH (15:37)
[2018-09-11] MEDS: ENOXAPARIN 40 MG/0.4 ML SQ SCH (16:09)
[2018-09-11 19:41] VITALS: BP 133/82
[2018-09-12 02:00] VITALS: BP 132/81
[2018-09-12] MEDS: ACETAMINOPHEN 500 MG TABLET PO SCH ×4 (03:00→20:55)
[2018-09-12] MEDS: ONDANSETRON 2MG/ML, 2ML IVPush PRN ×4 (03:33→20:12)
[2018-09-12] MEDS: CEFTAROLINE 600 MG in SODIUM CHLORIDE 0.9% 100 ML IV SCH ×3 (03:33→20:53)
[2018-09-12 06:22] LABS: BASOPHILS # (AUTO) 0.04 x10^3/uL (0-0.1); BASOPHILS % (AUTO) 1 % (0-1); EOSINOPHILS # (AUTO) 0.06 x10^3/uL (0-0.4); EOSINOPHILS % (AUTO) 1 % (1-7); LYMPHOCYTES # (AUTO) 0.73 x10^3/uL (1-3.4); LYMPHOCYTES % (AUTO) 16 % (22-44); MD NO; MEAN CORPUSCULAR HEMOGLOBIN 29.3 pg (27.0-34.8); MEAN CORPUSCULAR HGB CONC 33.1 g/dL (32.4-35.8); MEAN CORPUSCULAR VOLUME 88.6 fL (80-100); MEAN PLATELET VOLUME 6.6 fL (7.4-10.4); MONOCYTES # (AUTO) 0.59 x10^3/uL (0.2-0.8); MONOCYTES % (AUTO) 13 % (2-9); NEUTROPHILS # (AUTO) 3.15 x10^3/uL (1.8-6.8); NEUTROPHILS % (AUTO) 69 % (42-75); PLATELET COUNT 421 x10^3/uL (130-400); RED BLOOD COUNT 2.97 x10^6/uL (3.82-5.3); RED CELL DISTRIBUTION WIDTH 13.9 % (9.6-15.2)
[2018-09-12 06:30] LABS: ALANINE AMINOTRANSFERASE 49 U/L (12-78); ALBUMIN 1.8 g/dL (3.4-5.0); ANION GAP 8 mmol/L (5-15); CHLORIDE 107 mmol/L (98-107); CREATININE 0.76 mg/dL (0.55-1.02)
[2018-09-12 06:33] LABS: ALKALINE PHOSPHATASE 105 U/L (45-117); BILIRUBIN,TOTAL 0.2 mg/dL (0.2-1.0); TOTAL PROTEIN 5.8 g/dL (6.4-8.2)
[2018-09-12 06:41] VITALS: BP 128/77
[2018-09-12] MEDS: ALBUTEROL SULFATE 2.5 MG/3 ML NPPB SCH ×4 (07:00→20:48)
[2018-09-12] MEDS: FLUTICASONE NASAL SPRAY 16GM NAS SCH ×2 (08:46→20:55)
[2018-09-12] MEDS: GUAIFENESIN ER 600 MG TABLET PO SCH ×3 (08:46→20:55)
[2018-09-12] MEDS: BENZONATATE 100 MG CAPSULE PO SCH ×3 (08:58→20:54)
[2018-09-12] MEDS: SODIUM CHLORIDE 0.45% 1,000 ML IV SCH (08:58)
[2018-09-12] MEDS: ALUMINUM/MAG/SIMETHICONE 30 ML UDC PO PRN (10:54)
[2018-09-12 14:18] VITALS: BP 138/84
[2018-09-12] MEDS: PROMETHAZINE 25 MG/ML, 1ML IM PRN (14:51)
[2018-09-12] MEDS: LIDODERM 5% PATCH TD SCH (15:00)
[2018-09-12 19:45] VITALS: BP 154/78
[2018-09-12] MEDS: ENOXAPARIN 40 MG/0.4 ML SQ SCH (20:54)
[2018-09-13 01:09] VITALS: BP 159/76
[2018-09-13] MEDS: ACETAMINOPHEN 500 MG TABLET PO SCH ×4 (02:39→21:00)
[2018-09-13] MEDS: ONDANSETRON 2MG/ML, 2ML IVPush PRN ×5 (03:10→21:23)
[2018-09-13] MEDS: CEFTAROLINE 600 MG in SODIUM CHLORIDE 0.9% 100 ML IV SCH ×2 (05:03→16:33)
[2018-09-13] MEDS: SODIUM CHLORIDE 0.45% 1,000 ML IV SCH ×2 (05:05→16:24)
[2018-09-13 05:40] LABS: BASOPHILS # (AUTO) 0.05 x10^3/uL (0-0.1); BASOPHILS % (AUTO) 1 % (0-1); EOSINOPHILS % (AUTO) 2 % (1-7); LYMPHOCYTES # (AUTO) 0.69 x10^3/uL (1-3.4); LYMPHOCYTES % (AUTO) 12 % (22-44); MD NO; MEAN CORPUSCULAR HEMOGLOBIN 30.4 pg (27.0-34.8); MEAN CORPUSCULAR HGB CONC 34.5 g/dL (32.4-35.8); MEAN CORPUSCULAR VOLUME 88.1 fL (80-100); MEAN PLATELET VOLUME 6.5 fL (7.4-10.4); MONOCYTES # (AUTO) 0.73 x10^3/uL (0.2-0.8); MONOCYTES % (AUTO) 12 % (2-9); NEUTROPHILS # (AUTO) 4.44 x10^3/uL (1.8-6.8); NEUTROPHILS % (AUTO) 74 % (42-75); PLATELET COUNT 424 x10^3/uL (130-400); RED BLOOD COUNT 2.87 x10^6/uL (3.82-5.3); RED CELL DISTRIBUTION WIDTH 14.6 % (9.6-15.2)
[2018-09-13 06:09] LABS: ALANINE AMINOTRANSFERASE 31 U/L (12-78); ALBUMIN 1.7 g/dL (3.4-5.0); ANION GAP 7 mmol/L (5-15); CALCIUM 7.6 mg/dL (8.5-10.1); CHLORIDE 111 mmol/L (98-107)
[2018-09-13 06:12] LABS: ALKALINE PHOSPHATASE 95 U/L (45-117); BILIRUBIN,TOTAL 0.2 mg/dL (0.2-1.0); TOTAL PROTEIN 5.6 g/dL (6.4-8.2)
[2018-09-13] MEDS: ALBUTEROL SULFATE 2.5 MG/3 ML NPPB SCH ×4 (07:31→20:10)
[2018-09-13] MEDS: BENZONATATE 100 MG CAPSULE PO SCH ×3 (08:57→21:35)
[2018-09-13] MEDS: FLUTICASONE NASAL SPRAY 16GM NAS SCH ×2 (08:58→21:00)
[2018-09-13] MEDS: GUAIFENESIN ER 600 MG TABLET PO SCH ×3 (08:58→21:00)
[2018-09-13 09:16] VITALS: BP 122/73
[2018-09-13 14:25] VITALS: BP 120/74
[2018-09-13] MEDS: LIDODERM 5% PATCH TD SCH (15:34)
[2018-09-13] MEDS: FERROUS SULFATE 325 MG TABLET PO SCH (15:35)
[2018-09-13] MEDS: ENOXAPARIN 40 MG/0.4 ML SQ SCH (21:23)
[2018-09-13 21:39] VITALS: BP 115/62
[2018-09-14 01:21] VITALS: BP 121/68
[2018-09-14] MEDS: ONDANSETRON 2MG/ML, 2ML IVPush PRN ×4 (01:31→22:34)
[2018-09-14] MEDS: SODIUM CHLORIDE 0.45% 1,000 ML IV SCH ×2 (03:32→16:51)
[2018-09-14] MEDS: ACETAMINOPHEN 500 MG TABLET PO SCH ×4 (03:32→21:00)
[2018-09-14] MEDS: CEFTAROLINE 600 MG in SODIUM CHLORIDE 0.9% 100 ML IV SCH ×2 (05:22→16:50)
[2018-09-14 05:50] LABS: BASOPHILS # (AUTO) 0.02 x10^3/uL (0-0.1); BASOPHILS % (AUTO) 0 % (0-1); EOSINOPHILS # (AUTO) 0.13 x10^3/uL (0-0.4); EOSINOPHILS % (AUTO) 3 % (1-7); LYMPHOCYTES # (AUTO) 0.59 x10^3/uL (1-3.4); LYMPHOCYTES % (AUTO) 12 % (22-44); MD NO; MEAN CORPUSCULAR VOLUME 88.4 fL (80-100); MEAN PLATELET VOLUME 6.8 fL (7.4-10.4); MONOCYTES % (AUTO) 14 % (2-9); NEUTROPHILS # (AUTO) 3.63 x10^3/uL (1.8-6.8); NEUTROPHILS % (AUTO) 72 % (42-75); PLATELET COUNT 428 x10^3/uL (130-400); RED BLOOD COUNT 2.79 x10^6/uL (3.82-5.3); RED CELL DISTRIBUTION WIDTH 14.7 % (9.6-15.2)
[2018-09-14 06:05] LABS: ALBUMIN 1.8 g/dL (3.4-5.0); ANION GAP 5 mmol/L (5-15); CALCIUM 8.3 mg/dL (8.5-10.1); CHLORIDE 108 mmol/L (98-107)
[2018-09-14 06:10] LABS: ALANINE AMINOTRANSFERASE 25 U/L (12-78); ALKALINE PHOSPHATASE 92 U/L (45-117); BILIRUBIN,TOTAL 0.2 mg/dL (0.2-1.0); CREATININE 0.79 mg/dL (0.55-1.02); TOTAL PROTEIN 5.7 g/dL (6.4-8.2)
[2018-09-14 07:20] VITALS: BP 129/77
[2018-09-14] MEDS: ALBUTEROL SULFATE 2.5 MG/3 ML NPPB SCH ×4 (07:57→19:47)
[2018-09-14] MEDS ORDERED: CODEINE SULFATE 30 MG TABLET PO PRN (08:30)
[2018-09-14] MEDS: GUAIFENESIN ER 600 MG TABLET PO SCH ×3 (08:45→22:10)
[2018-09-14] MEDS: FLUTICASONE NASAL SPRAY 16GM NAS SCH ×2 (08:45→21:00)
[2018-09-14] MEDS: BENZONATATE 100 MG CAPSULE PO SCH ×3 (08:45→22:10)
[2018-09-14] MEDS: ALUMINUM/MAG/SIMETHICONE 30 ML UDC PO PRN (10:56)
[2018-09-14 13:34] VITALS: BP 106/67
[2018-09-14] MEDS: LIDODERM 5% PATCH TD SCH (14:50)
[2018-09-14] MEDS: GUAIFENESIN/COD200MG-20MG/10ML LIQUID PO PRN (18:24)
[2018-09-14 19:13] VITALS: BP 113/72
[2018-09-14] MEDS: ENOXAPARIN 40 MG/0.4 ML SQ SCH (22:10)
[2018-09-15] MEDS: ACETAMINOPHEN 500 MG TABLET PO SCH ×4 (02:07→20:50)
[2018-09-15] MEDS: SODIUM CHLORIDE 0.45% 1,000 ML IV SCH ×3 (03:30→23:55)
[2018-09-15] MEDS: ALUMINUM/MAG/SIMETHICONE 30 ML UDC PO PRN ×2 (03:35→16:57)
[2018-09-15 03:50] VITALS: BP 112/66
[2018-09-15] MEDS: CEFTAROLINE 600 MG in SODIUM CHLORIDE 0.9% 100 ML IV SCH (05:03)
[2018-09-15] MEDS: ALBUTEROL SULFATE 2.5 MG/3 ML NPPB SCH ×4 (06:57→20:45)
[2018-09-15 07:07] VITALS: BP 111/67
[2018-09-15] MEDS: GUAIFENESIN ER 600 MG TABLET PO SCH ×3 (08:52→21:00)
[2018-09-15] MEDS: ERGOCALCIFEROL 50,000 UNIT CAPSULE HOMEMEDPO SCH (08:52)
[2018-09-15] MEDS: BENZONATATE 100 MG CAPSULE PO SCH ×3 (08:52→21:27)
[2018-09-15] MEDS: FLUTICASONE NASAL SPRAY 16GM NAS SCH ×2 (08:53→20:50)
[2018-09-15] MEDS ORDERED: DIPHENHYDRAMINE 50 MG/ML, 1ML IVPush ONE (12:00)
[2018-09-15 12:53] VITALS: BP 107/69
[2018-09-15 13:47] LABS: HCT (SEDRATE) 26.8 % (34.6-47.8)
[2018-09-15] MEDS: LIDODERM 5% PATCH TD SCH (15:16)
[2018-09-15] MEDS: SENNA/DOCUSATE TABLET PO PRN (16:57)
[2018-09-15] MEDS: FERROUS SULFATE 325 MG TABLET PO SCH (16:57)
[2018-09-15] MEDS: ONDANSETRON 2MG/ML, 2ML IVPush PRN (17:40)
[2018-09-15 19:48] VITALS: BP 114/74
[2018-09-15] MEDS: GUAIFENESIN/COD200MG-20MG/10ML LIQUID PO PRN (21:13)
[2018-09-15] MEDS: LINEZOLID 600 MG TABLET PO SCH (21:27)
[2018-09-15] MEDS: ENOXAPARIN 40 MG/0.4 ML SQ SCH (21:34)
[2018-09-16] MEDS: ACETAMINOPHEN 500 MG TABLET PO SCH ×4 (02:08→20:46)
[2018-09-16 02:22] VITALS: BP 122/69
[2018-09-16] MEDS: ALBUTEROL SULFATE 2.5 MG/3 ML NPPB SCH ×4 (07:00→20:00)
[2018-09-16 07:34] VITALS: BP 125/77
[2018-09-16] MEDS: LINEZOLID 600 MG TABLET PO SCH ×2 (08:13→20:44)
[2018-09-16] MEDS: BENZONATATE 100 MG CAPSULE PO SCH ×3 (08:13→20:44)
[2018-09-16] MEDS: FLUTICASONE NASAL SPRAY 16GM NAS SCH ×2 (08:14→20:45)
[2018-09-16] MEDS: GUAIFENESIN ER 600 MG TABLET PO SCH ×3 (08:14→20:44)
[2018-09-16] MEDS ORDERED: CATHFLO-ALTEPLASE 2 MG/2 ML CATHFLUSH ONE (08:30)
[2018-09-16] MEDS: SODIUM CHLORIDE 0.45% 1,000 ML IV SCH ×2 (09:50→20:43)
[2018-09-16] MEDS: GUAIFENESIN/COD200MG-20MG/10ML LIQUID PO PRN ×2 (10:35→14:20)
[2018-09-16 12:45] VITALS: BP 114/62
[2018-09-16] MEDS: LIDODERM 5% PATCH TD SCH (14:21)
[2018-09-16] MEDS: HYDROcodone/CHLORPHENIR ORAL SUSP PO PRN (17:06)
[2018-09-16 20:29] VITALS: BP 104/67
[2018-09-16] MEDS: ENOXAPARIN 40 MG/0.4 ML SQ SCH (20:45)
[2018-09-17] MEDS: DIPHENHYDRAMINE 25 MG CAPSULE PO PRN ×2 (00:09→09:26)
[2018-09-17] MEDS: FAMOTIDINE 20 MG/2 ML IVPush SCH ×3 (00:09→21:21)
[2018-09-17] MEDS: ACETAMINOPHEN 500 MG TABLET PO SCH ×4 (03:00→21:21)
[2018-09-17 03:15] VITALS: BP 104/68
[2018-09-17] MEDS: SODIUM CHLORIDE 0.45% 1,000 ML IV SCH ×2 (06:00→17:38)
[2018-09-17] MEDS: HYDROcodone/CHLORPHENIR ORAL SUSP PO PRN ×2 (06:53→18:48)
[2018-09-17 07:10] VITALS: BP 105/67
[2018-09-17 07:27] VITALS: BP 110/73
[2018-09-17] MEDS ORDERED: OMNIPAQUE 350 MG/ML, 100ML BOTTLE ONE (07:54)
[2018-09-17] MEDS: ALBUTEROL SULFATE 2.5 MG/3 ML NPPB SCH ×4 (08:29→21:00)
[2018-09-17] MEDS: FLUTICASONE NASAL SPRAY 16GM NAS SCH ×2 (08:53→21:22)
[2018-09-17] MEDS: LINEZOLID 600 MG TABLET PO SCH ×2 (09:19→21:21)
[2018-09-17] MEDS: BENZONATATE 100 MG CAPSULE PO SCH ×3 (09:19→21:21)
[2018-09-17] MEDS: GUAIFENESIN ER 600 MG TABLET PO SCH ×3 (09:19→21:21)
[2018-09-17 13:42] VITALS: BP 117/60
[2018-09-17] MEDS: GUAIFENESIN 100 MG/5 ML, 5ML UDC PO PRN (13:50)
[2018-09-17] MEDS: LIDODERM 5% PATCH TD SCH (15:00)
[2018-09-17] MEDS: FERROUS SULFATE 325 MG TABLET PO SCH (15:29)
[2018-09-17 20:22] VITALS: BP 143/78
[2018-09-17] MEDS: ENOXAPARIN 40 MG/0.4 ML SQ SCH (21:21)
[2018-09-18] MEDS: ACETAMINOPHEN 500 MG TABLET PO SCH ×4 (03:00→21:00)
[2018-09-18 05:37] VITALS: BP 123/77
[2018-09-18] MEDS: HYDROcodone/CHLORPHENIR ORAL SUSP PO PRN (06:02)
[2018-09-18] MEDS: SODIUM CHLORIDE 0.45% 1,000 ML IV SCH ×2 (06:03→12:00)
[2018-09-18] MEDS: ALBUTEROL SULFATE 2.5 MG/3 ML NPPB SCH ×4 (07:00→20:00)
[2018-09-18] MEDS: GUAIFENESIN ER 600 MG TABLET PO SCH ×3 (09:17→21:33)
[2018-09-18] MEDS: BENZONATATE 100 MG CAPSULE PO SCH ×3 (09:17→21:00)
[2018-09-18] MEDS: LINEZOLID 600 MG TABLET PO SCH ×2 (09:17→21:34)
[2018-09-18] MEDS: FLUTICASONE NASAL SPRAY 16GM NAS SCH ×2 (09:18→21:00)
[2018-09-18] MEDS: FAMOTIDINE 20 MG/2 ML IVPush SCH (09:18)
[2018-09-18] MEDS: GUAIFENESIN 100 MG/5 ML, 5ML UDC PO PRN (09:42)
[2018-09-18 09:51] VITALS: BP 119/73
[2018-09-18 11:58] LABS: MEAN CORPUSCULAR HEMOGLOBIN 28.7 pg (27.0-34.8); MEAN CORPUSCULAR HGB CONC 33.1 g/dL (32.4-35.8); MEAN CORPUSCULAR VOLUME 86.7 fL (80-100); MEAN PLATELET VOLUME 7.2 fL (7.4-10.4); PLATELET COUNT 600 x10^3/uL (130-400); RED BLOOD COUNT 2.93 x10^6/uL (3.82-5.3); RED CELL DISTRIBUTION WIDTH 14.6 % (9.6-15.2)
[2018-09-18 12:23] LABS: MD YES
[2018-09-18 12:27] LABS: EOS#(MANUAL) 0.13 x10^3/uL (0.0-0.4); EOS% (MANUAL) 6 % (1-7); LYMPH#(MANUAL) 0.88 x10^3/uL (1-3.4); LYMPHS% (MANUAL) 42 % (22-44); MONOS#(MANUAL) 1.03 x10^3/uL (0.3-2.7); MONOS% (MANUAL) 49 % (2-9); REACTIVE LYMPHS # (MANUAL) 0.06 x10^3/uL (0-0); REACTIVE LYMPHS % (MANUAL) 3 % (0-0)
[2018-09-18 12:29] LABS: <PLATELET ESTIMATE> INCREASED; <PLT MORPHOLOGY> NORMAL PLT MORPH; ANISOCYTOSIS 1+; POLYCHROMASIA 1+
[2018-09-18 13:00] VITALS: BP 138/78
[2018-09-18 13:53] LABS: ALBUMIN 1.9 g/dL (3.4-5.0); ANION GAP 5 mmol/L (5-15); CALCIUM 8.4 mg/dL (8.5-10.1); CHLORIDE 105 mmol/L (98-107); CREATININE 0.71 mg/dL (0.55-1.02)
[2018-09-18] MEDS: PROMETHAZINE/COD. 10MG/6.25MG/5 ML ORAL SOL PO PRN ×3 (14:36→22:52)
[2018-09-18] MEDS: LIDODERM 5% PATCH TD SCH (15:00)
[2018-09-18 20:29] VITALS: BP 125/76
[2018-09-18] MEDS ORDERED: POTASSIUM CHLORIDE 20 MEQ TAB.ER.PRT PO ONE (21:00)
[2018-09-18] MEDS: FAMOTIDINE 20 MG TABLET PO SCH (21:33)
[2018-09-18] MEDS: ENOXAPARIN 40 MG/0.4 ML SQ SCH (21:45)
[2018-09-18] MEDS ORDERED: CATHFLO-ALTEPLASE 2 MG/2 ML CATHFLUSH ONE (23:00)
[2018-09-19] MEDS: ACETAMINOPHEN 500 MG TABLET PO SCH ×4 (03:00→21:00)
[2018-09-19 03:55] VITALS: BP 112/69
[2018-09-19 06:42] LABS: MEAN CORPUSCULAR HGB CONC 32.6 g/dL (32.4-35.8); MEAN PLATELET VOLUME 7.7 fL (7.4-10.4); PLATELET COUNT 621 x10^3/uL (130-400); RED BLOOD COUNT 2.94 x10^6/uL (3.82-5.3); RED CELL DISTRIBUTION WIDTH 14.9 % (9.6-15.2)
[2018-09-19] MEDS: ALBUTEROL SULFATE 2.5 MG/3 ML NPPB SCH ×4 (07:00→20:00)
[2018-09-19 07:59] VITALS: BP 107/68
[2018-09-19 08:11] LABS: MD YES
[2018-09-19 08:16] LABS: EOS#(MANUAL) 0.11 x10^3/uL (0.0-0.4); EOS% (MANUAL) 5 % (1-7); LYMPH#(MANUAL) 0.76 x10^3/uL (1-3.4); LYMPHS% (MANUAL) 36 % (22-44); MONOS#(MANUAL) 1.18 x10^3/uL (0.3-2.7); MONOS% (MANUAL) 56 % (2-9); REACTIVE LYMPHS # (MANUAL) 0.06 x10^3/uL (0-0); REACTIVE LYMPHS % (MANUAL) 3 % (0-0)
[2018-09-19 08:17] LABS: ANISOCYTOSIS 1+; POLYCHROMASIA 1+
[2018-09-19 08:21] LABS: <PLATELET ESTIMATE> INCREASED; <PLT MORPHOLOGY> NORMAL PLT MORPH
[2018-09-19] MEDS: FLUTICASONE NASAL SPRAY 16GM NAS SCH ×2 (09:38→21:00)
[2018-09-19] MEDS: GUAIFENESIN ER 600 MG TABLET PO SCH ×3 (09:38→21:00)
[2018-09-19] MEDS: PROMETHAZINE/COD. 10MG/6.25MG/5 ML ORAL SOL PO PRN ×4 (09:38→21:46)
[2018-09-19] MEDS: FAMOTIDINE 20 MG TABLET PO SCH ×2 (09:38→21:45)
[2018-09-19] MEDS: LINEZOLID 600 MG TABLET PO SCH (09:38)
[2018-09-19] MEDS: BENZONATATE 100 MG CAPSULE PO SCH ×3 (09:38→21:00)
[2018-09-19] MEDS ORDERED: METOLAZONE 5 MG TABLET PO ONE (12:00)
[2018-09-19 12:27] LABS: SEGS% (MANUAL) 0 % (42-75)
[2018-09-19] MEDS: TBO-FILGRASTIM 480 MCG/0.8 ML SQ SCH (13:35)
[2018-09-19] MEDS: VANCOMYCIN 1,900 MG in SODIUM CHLORIDE 0.9% 250 ML IVPB SCH (13:35)
[2018-09-19] MEDS: SPIRONOLACTONE 25 MG TABLET PO SCH (13:35)
[2018-09-19 13:53] VITALS: BP 107/70
[2018-09-19] MEDS: LIDODERM 5% PATCH TD SCH (15:00)
[2018-09-19] MEDS: FERROUS SULFATE 325 MG TABLET PO SCH (17:56)
[2018-09-19 20:30] VITALS: BP 112/72
[2018-09-19] MEDS: ENOXAPARIN 40 MG/0.4 ML SQ SCH (21:45)
[2018-09-20] MEDS: VANCOMYCIN 1,900 MG in SODIUM CHLORIDE 0.9% 250 ML IVPB SCH ×2 (01:10→12:58)
[2018-09-20 01:17] VITALS: BP 102/65
[2018-09-20] MEDS: ACETAMINOPHEN 500 MG TABLET PO SCH ×4 (03:00→20:58)
[2018-09-20] MEDS ORDERED: CATHFLO-ALTEPLASE 2 MG/2 ML CATHFLUSH ONE (06:00)
[2018-09-20] MEDS: ALBUTEROL SULFATE 2.5 MG/3 ML NPPB SCH ×3 (06:49→21:00)
[2018-09-20 08:25] VITALS: BP 126/76
[2018-09-20] MEDS: FAMOTIDINE 20 MG TABLET PO SCH ×2 (08:35→20:58)
[2018-09-20] MEDS: BENZONATATE 100 MG CAPSULE PO SCH ×3 (08:35→20:57)
[2018-09-20] MEDS: GUAIFENESIN ER 600 MG TABLET PO SCH ×3 (08:35→20:57)
[2018-09-20] MEDS: SPIRONOLACTONE 25 MG TABLET PO SCH (08:35)
[2018-09-20] MEDS: FLUTICASONE NASAL SPRAY 16GM NAS SCH ×2 (08:36→20:58)
[2018-09-20 08:42] LABS: MEAN CORPUSCULAR HEMOGLOBIN 28.4 pg (27.0-34.8); MEAN CORPUSCULAR VOLUME 86.1 fL (80-100); MEAN PLATELET VOLUME 7.1 fL (7.4-10.4); PLATELET COUNT 737 x10^3/uL (130-400); RED BLOOD COUNT 3.13 x10^6/uL (3.82-5.3); RED CELL DISTRIBUTION WIDTH 15.3 % (9.6-15.2)
[2018-09-20 08:44] LABS: ALANINE AMINOTRANSFERASE 15 U/L (12-78); ANION GAP 8 mmol/L (5-15); CALCIUM 9.1 mg/dL (8.5-10.1); CHLORIDE 103 mmol/L (98-107); CREATININE 0.89 mg/dL (0.55-1.02)
[2018-09-20 08:47] LABS: ALKALINE PHOSPHATASE 78 U/L (45-117); BILIRUBIN,TOTAL 0.4 mg/dL (0.2-1.0)
[2018-09-20] MEDS: ALLOPURINOL 300 MG TABLET PO SCH ×2 (09:00→11:25)
[2018-09-20 09:09] LABS: MD YES
[2018-09-20 09:17] LABS: BANDS%(MANUAL) 5 % (0-7); EOS% (MANUAL) 5 % (1-7); LYMPH#(MANUAL) 1.68 x10^3/uL (1-3.4); LYMPHS% (MANUAL) 42 % (22-44); METAMYELOCYTES# (MANUAL) 0.04 x10^3/uL (0-0); METAMYELOCYTES% (MANUAL) 1 % (0-1); MONOS#(MANUAL) 1.72 x10^3/uL (0.3-2.7); MONOS% (MANUAL) 43 % (2-9); SEG#(MANUAL) 0.16 x10^3/uL (1.8-6.8); SEGS% (MANUAL) 4 % (42-75)
[2018-09-20 09:20] LABS: ANISOCYTOSIS 1+; POLYCHROMASIA 1+
[2018-09-20 09:21] LABS: <PLATELET ESTIMATE> INCREASED; <PLT MORPHOLOGY> NORMAL PLT MORPH
[2018-09-20] MEDS ORDERED: METOLAZONE 5 MG TABLET PO ONE (11:00)
[2018-09-20] MEDS: TBO-FILGRASTIM 480 MCG/0.8 ML SQ SCH (12:05)
[2018-09-20 12:53] VITALS: BP 108/61
[2018-09-20] MEDS: PROMETHAZINE/COD. 10MG/6.25MG/5 ML ORAL SOL PO PRN ×2 (12:57→20:57)
[2018-09-20] MEDS: LIDODERM 5% PATCH TD SCH (16:20)
[2018-09-20 19:26] VITALS: BP 118/66
[2018-09-20] MEDS: ENOXAPARIN 40 MG/0.4 ML SQ SCH (20:57)
[2018-09-21] MEDS: VANCOMYCIN 1,900 MG in SODIUM CHLORIDE 0.9% 250 ML IVPB SCH ×2 (01:05→13:06)
[2018-09-21 01:09] VITALS: BP 105/68
[2018-09-21] MEDS: ACETAMINOPHEN 500 MG TABLET PO SCH ×5 (01:43→21:46)
[2018-09-21 05:31] LABS: ANION GAP 6 mmol/L (5-15); CALCIUM 9.1 mg/dL (8.5-10.1); CHLORIDE 104 mmol/L (98-107)
[2018-09-21 05:36] LABS: ALANINE AMINOTRANSFERASE 14 U/L (12-78); ALKALINE PHOSPHATASE 74 U/L (45-117); BILIRUBIN,TOTAL 0.4 mg/dL (0.2-1.0); TOTAL PROTEIN 5.9 g/dL (6.4-8.2)
[2018-09-21 05:42] LABS: MEAN CORPUSCULAR HEMOGLOBIN 27.8 pg (27.0-34.8); MEAN CORPUSCULAR HGB CONC 32.4 g/dL (32.4-35.8); MEAN CORPUSCULAR VOLUME 85.9 fL (80-100); MEAN PLATELET VOLUME 7.3 fL (7.4-10.4); PLATELET COUNT 704 x10^3/uL (130-400); RED BLOOD COUNT 3.21 x10^6/uL (3.82-5.3); RED CELL DISTRIBUTION WIDTH 15.5 % (9.6-15.2)
[2018-09-21 06:22] LABS: MD YES
[2018-09-21 06:27] LABS: BASOS#(MANUAL) 0.09 x10^3/uL (0-0.1); BASOS% (MANUAL) 1 % (0-1); LYMPH#(MANUAL) 1.41 x10^3/uL (1-3.4); LYMPHS% (MANUAL) 15 % (22-44); METAMYELOCYTES# (MANUAL) 0.38 x10^3/uL (0-0); METAMYELOCYTES% (MANUAL) 4 % (0-1); MYELOCYTES# (MANUAL) 0.09 x10^3/uL (0-0); MYELOCYTES% (MANUAL) 1 % (0-0); SEG#(MANUAL) 3.76 x10^3/uL (1.8-6.8); SEGS% (MANUAL) 40 % (42-75)
[2018-09-21 06:28] LABS: ANISOCYTOSIS 1+; BAND#(MANUAL) 1.41 x10^3/uL; BANDS%(MANUAL) 15 % (0-7); EOS#(MANUAL) 0.19 x10^3/uL (0.0-0.4); EOS% (MANUAL) 2 % (1-7); MONOS#(MANUAL) 2.07 x10^3/uL (0.3-2.7); MONOS% (MANUAL) 22 % (2-9); NRBC % (MANUAL) 3 % (0-1)
[2018-09-21 06:29] LABS: POLYCHROMASIA 1+
[2018-09-21 06:30] LABS: <PLATELET ESTIMATE> INCREASED; <PLT MORPHOLOGY> NORMAL PLT MORPH; TOXIC GRAN 2+
[2018-09-21 06:31] LABS: PMNS WITH VACUOLES 1+
[2018-09-21] MEDS ORDERED: POTASSIUM CHLORIDE 20 MEQ TAB.ER.PRT PO ONE ×2 (08:00→11:00)
[2018-09-21] MEDS: FAMOTIDINE 20 MG TABLET PO SCH ×2 (08:04→21:46)
[2018-09-21] MEDS: GUAIFENESIN ER 600 MG TABLET PO SCH ×3 (08:04→21:45)
[2018-09-21] MEDS: SPIRONOLACTONE 25 MG TABLET PO SCH (08:04)
[2018-09-21] MEDS: FLUTICASONE NASAL SPRAY 16GM NAS SCH ×2 (08:05→21:00)
[2018-09-21] MEDS: BENZONATATE 100 MG CAPSULE PO SCH ×3 (08:05→21:45)
[2018-09-21 09:15] VITALS: BP 112/67
[2018-09-21] MEDS: ALBUTEROL SULFATE 2.5 MG/3 ML NPPB SCH ×3 (10:25→21:03)
[2018-09-21] MEDS: PROMETHAZINE/COD. 10MG/6.25MG/5 ML ORAL SOL PO PRN ×3 (11:17→21:45)
[2018-09-21] MEDS: TBO-FILGRASTIM 480 MCG/0.8 ML SQ SCH (11:17)
[2018-09-21 12:59] VITALS: BP 127/84
[2018-09-21] MEDS: LIDODERM 5% PATCH TD SCH (15:02)
[2018-09-21 16:33] LABS: ALANINE AMINOTRANSFERASE 14 U/L (12-78); ALBUMIN 2.1 g/dL (3.4-5.0); ANION GAP 7 mmol/L (5-15); CALCIUM 8.9 mg/dL (8.5-10.1); CHLORIDE 103 mmol/L (98-107); CREATININE 1.15 mg/dL (0.55-1.02)
[2018-09-21 16:39] LABS: ALKALINE PHOSPHATASE 84 U/L (45-117); BILIRUBIN,TOTAL 0.3 mg/dL (0.2-1.0)
[2018-09-21] MEDS: FERROUS SULFATE 325 MG TABLET PO SCH (16:41)
[2018-09-21 19:52] VITALS: BP 115/75
[2018-09-21] MEDS: ENOXAPARIN 40 MG/0.4 ML SQ SCH (21:45)
[2018-09-22] MEDS: VANCOMYCIN 1,900 MG in SODIUM CHLORIDE 0.9% 250 ML IVPB SCH (01:26)
[2018-09-22 02:52] VITALS: BP 111/71
[2018-09-22] MEDS: ACETAMINOPHEN 500 MG TABLET PO SCH ×4 (03:00→21:00)
[2018-09-22 05:09] LABS: MEAN CORPUSCULAR HEMOGLOBIN 28.7 pg (27.0-34.8); MEAN CORPUSCULAR HGB CONC 33.5 g/dL (32.4-35.8); MEAN CORPUSCULAR VOLUME 85.7 fL (80-100); MEAN PLATELET VOLUME 6.8 fL (7.4-10.4); PLATELET COUNT 728 x10^3/uL (130-400); RED CELL DISTRIBUTION WIDTH 15.8 % (9.6-15.2)
[2018-09-22 05:10] LABS: HCT (SEDRATE) 28.4 % (34.6-47.8)
[2018-09-22 05:22] LABS: ALANINE AMINOTRANSFERASE 12 U/L (12-78); ALBUMIN 2.1 g/dL (3.4-5.0); ANION GAP 6 mmol/L (5-15); CALCIUM 9.4 mg/dL (8.5-10.1); CHLORIDE 104 mmol/L (98-107); CREATININE 1.08 mg/dL (0.55-1.02)
[2018-09-22 05:29] LABS: ALKALINE PHOSPHATASE 100 U/L (45-117); BILIRUBIN,TOTAL 0.4 mg/dL (0.2-1.0); TOTAL PROTEIN 5.9 g/dL (6.4-8.2)
[2018-09-22 05:39] LABS: MD YES
[2018-09-22 05:43] LABS: BAND#(MANUAL) 9.65 x10^3/uL; BANDS%(MANUAL) 26 % (0-7); EOS#(MANUAL) 0.37 x10^3/uL (0.0-0.4); EOS% (MANUAL) 1 % (1-7); LYMPH#(MANUAL) 4.82 x10^3/uL (1-3.4); LYMPHS% (MANUAL) 13 % (22-44); METAMYELOCYTES# (MANUAL) 0.37 x10^3/uL (0-0); METAMYELOCYTES% (MANUAL) 1 % (0-1); MONOS% (MANUAL) 7 % (2-9); MYELOCYTES# (MANUAL) 1.86 x10^3/uL (0-0); MYELOCYTES% (MANUAL) 5 % (0-0); SEG#(MANUAL) 17.07 x10^3/uL (1.8-6.8); SEGS% (MANUAL) 46 % (42-75)
[2018-09-22 05:44] LABS: NRBC % (MANUAL) 1 % (0-1); OTHER CELLS # (MANUAL) 0.37 x10^3/uL (0-0)
[2018-09-22 05:53] LABS: ANISOCYTOSIS 1+; OTHER CELLS % (MANUAL) 1 % (0-0); PMNS WITH VACUOLES 1+; POLYCHROMASIA 1+; TOXIC GRAN 2+
[2018-09-22 05:54] LABS: <PLATELET ESTIMATE> INCREASED; <PLT MORPHOLOGY> NORMAL PLT MORPH
[2018-09-22 07:38] VITALS: BP 113/75
[2018-09-22] MEDS: GUAIFENESIN ER 600 MG TABLET PO SCH ×3 (08:26→21:38)
[2018-09-22] MEDS: HYDROCHLOROTHIAZIDE 25 MG TABLET PO SCH ×2 (08:26→09:07)
[2018-09-22] MEDS: FAMOTIDINE 20 MG TABLET PO SCH ×2 (08:26→21:39)
[2018-09-22] MEDS: SPIRONOLACTONE 25 MG TABLET PO SCH (08:26)
[2018-09-22] MEDS: BENZONATATE 100 MG CAPSULE PO SCH ×3 (08:27→21:38)
[2018-09-22] MEDS: FLUTICASONE NASAL SPRAY 16GM NAS SCH ×2 (08:39→21:00)
[2018-09-22] MEDS: ERGOCALCIFEROL 50,000 UNIT CAPSULE HOMEMEDPO SCH (08:39)
[2018-09-22] MEDS: ONDANSETRON 2MG/ML, 2ML IVPush PRN ×3 (08:39→16:58)
[2018-09-22] MEDS: ALBUTEROL SULFATE 2.5 MG/3 ML NPPB SCH ×3 (08:44→21:00)
[2018-09-22 13:07] VITALS: BP 117/71
[2018-09-22] MEDS: VANCOMYCIN 1,000 MG in SODIUM CHLORIDE 0.9% 250 ML IVPB SCH (13:07)
[2018-09-22] MEDS ORDERED: SODIUM CHLORIDE 0.9% 500 ML IV SCH (14:00)
[2018-09-22] MEDS: LIDODERM 5% PATCH TD SCH (15:00)
[2018-09-22] MEDS ORDERED: SODIUM CHLORIDE 0.9%, 500ML IVBOLUS ONE (15:00)
[2018-09-22 20:23] VITALS: BP 106/69
[2018-09-22] MEDS: ENOXAPARIN 40 MG/0.4 ML SQ SCH (21:39)
[2018-09-22] MEDS: PROMETHAZINE/COD. 10MG/6.25MG/5 ML ORAL SOL PO PRN (22:25)
[2018-09-23] MEDS: VANCOMYCIN 1,000 MG in SODIUM CHLORIDE 0.9% 250 ML IVPB SCH ×2 (01:09→13:00)
[2018-09-23] MEDS: ACETAMINOPHEN 500 MG TABLET PO SCH ×4 (02:34→21:00)
[2018-09-23 03:50] VITALS: BP 113/64
[2018-09-23 05:30] LABS: ALBUMIN 2.2 g/dL (3.4-5.0); ANION GAP 6 mmol/L (5-15); CALCIUM 9.2 mg/dL (8.5-10.1); CHLORIDE 105 mmol/L (98-107)
[2018-09-23 05:35] LABS: ALANINE AMINOTRANSFERASE 13 U/L (12-78); ALKALINE PHOSPHATASE 145 U/L (45-117); BILIRUBIN,TOTAL 0.5 mg/dL (0.2-1.0); CREATININE 1.27 mg/dL (0.55-1.02); TOTAL PROTEIN 5.8 g/dL (6.4-8.2)
[2018-09-23 05:36] LABS: MEAN CORPUSCULAR HEMOGLOBIN 28.5 pg (27.0-34.8); MEAN CORPUSCULAR HGB CONC 32.8 g/dL (32.4-35.8); MEAN CORPUSCULAR VOLUME 86.6 fL (80-100); MEAN PLATELET VOLUME 6.9 fL (7.4-10.4); PLATELET COUNT 714 x10^3/uL (130-400); RED BLOOD COUNT 3.34 x10^6/uL (3.82-5.3); RED CELL DISTRIBUTION WIDTH 15.7 % (9.6-15.2)
[2018-09-23 06:25] LABS: MD YES
[2018-09-23 06:34] LABS: BAND#(MANUAL) 17.79 x10^3/uL; BANDS%(MANUAL) 31 % (0-7); LYMPHS% (MANUAL) 4 % (22-44); SEG#(MANUAL) 28.13 x10^3/uL (1.8-6.8); SEGS% (MANUAL) 49 % (42-75)
[2018-09-23 06:37] LABS: METAMYELOCYTES% (MANUAL) 4 % (0-1); MONOS#(MANUAL) 4.59 x10^3/uL (0.3-2.7); MONOS% (MANUAL) 8 % (2-9); MYELOCYTES# (MANUAL) 1.72 x10^3/uL (0-0); MYELOCYTES% (MANUAL) 3 % (0-0); PROGRANULOCYTES# (MANUAL) 0.57 x10^3/uL (0-0); PROGRANULOCYTES% (MANUAL) 1 % (0-0)
[2018-09-23 06:38] LABS: NRBC % (MANUAL) 3 % (0-1)
[2018-09-23 06:39] LABS: TOXIC GRAN 2+
[2018-09-23 06:40] LABS: <PLATELET ESTIMATE> INCREASED; <PLT MORPHOLOGY> NORMAL PLT MORPH
[2018-09-23 06:41] LABS: ANISOCYTOSIS 1+; HYPOCHROMIA 1+; POLYCHROMASIA 1+
[2018-09-23 08:30] VITALS: BP 102/68
[2018-09-23] MEDS: HYDROCHLOROTHIAZIDE 25 MG TABLET PO SCH (09:43)
[2018-09-23] MEDS: BENZONATATE 100 MG CAPSULE PO SCH ×3 (09:43→18:01)
[2018-09-23] MEDS: GUAIFENESIN ER 600 MG TABLET PO SCH ×3 (09:43→21:00)
[2018-09-23] MEDS: FLUTICASONE NASAL SPRAY 16GM NAS SCH ×2 (09:44→21:00)
[2018-09-23] MEDS: SPIRONOLACTONE 25 MG TABLET PO SCH (09:44)
[2018-09-23] MEDS: FAMOTIDINE 20 MG TABLET PO SCH ×2 (09:53→21:15)
[2018-09-23] MEDS: ALBUTEROL SULFATE 2.5 MG/3 ML NPPB SCH ×3 (10:00→21:31)
[2018-09-23 12:27] VITALS: BP 121/78
[2018-09-23] MEDS: LIDODERM 5% PATCH TD SCH (15:09)
[2018-09-23] MEDS: FERROUS SULFATE 325 MG TABLET PO SCH (16:11)
[2018-09-23 19:25] VITALS: BP 132/74
[2018-09-23] MEDS: ENOXAPARIN 40 MG/0.4 ML SQ SCH (21:15)
[2018-09-23] MEDS: PROMETHAZINE/COD. 10MG/6.25MG/5 ML ORAL SOL PO PRN (21:15)
[2018-09-23] MEDS: BACITRACIN OINT 500U/GM, 15 GM TP SCH (22:42)
[2018-09-24] MEDS: ACETAMINOPHEN 500 MG TABLET PO SCH ×4 (02:29→21:00)
[2018-09-24 03:50] VITALS: BP 107/67
[2018-09-24 08:00] VITALS: BP 101/60
[2018-09-24 08:19] LABS: MEAN CORPUSCULAR HEMOGLOBIN 27.7 pg (27.0-34.8); MEAN CORPUSCULAR HGB CONC 31.9 g/dL (32.4-35.8); MEAN CORPUSCULAR VOLUME 86.7 fL (80-100); MEAN PLATELET VOLUME 6.7 fL (7.4-10.4); PLATELET COUNT 574 x10^3/uL (130-400); RED BLOOD COUNT 3.44 x10^6/uL (3.82-5.3); RED CELL DISTRIBUTION WIDTH 16.4 % (9.6-15.2)
[2018-09-24] MEDS: ALBUTEROL SULFATE 2.5 MG/3 ML NPPB SCH ×3 (08:25→20:44)
[2018-09-24 08:30] LABS: ALANINE AMINOTRANSFERASE 13 U/L (12-78); ALBUMIN 2.3 g/dL (3.4-5.0); ANION GAP 5 mmol/L (5-15); CALCIUM 9.1 mg/dL (8.5-10.1); CHLORIDE 104 mmol/L (98-107)
[2018-09-24 08:32] LABS: ALKALINE PHOSPHATASE 155 U/L (45-117); BILIRUBIN,TOTAL 0.2 mg/dL (0.2-1.0)
[2018-09-24 08:39] LABS: MD YES
[2018-09-24 08:45] LABS: ANISOCYTOSIS 1+; BAND#(MANUAL) 10.04 x10^3/uL; BANDS%(MANUAL) 26 % (0-7); LYMPH#(MANUAL) 3.09 x10^3/uL (1-3.4); LYMPHS% (MANUAL) 8 % (22-44); METAMYELOCYTES# (MANUAL) 1.16 x10^3/uL (0-0); METAMYELOCYTES% (MANUAL) 3 % (0-1); MONOS#(MANUAL) 2.32 x10^3/uL (0.3-2.7); MONOS% (MANUAL) 6 % (2-9); MYELOCYTES# (MANUAL) 1.93 x10^3/uL (0-0); MYELOCYTES% (MANUAL) 5 % (0-0); NRBC % (MANUAL) 3 % (0-1); POLYCHROMASIA 1+; SEG#(MANUAL) 20.07 x10^3/uL (1.8-6.8); SEGS% (MANUAL) 52 % (42-75)
[2018-09-24 08:46] LABS: <PLATELET ESTIMATE> INCREASED; <PLT MORPHOLOGY> NORMAL PLT MORPH; TOXIC GRAN 2+
[2018-09-24] MEDS ORDERED: SODIUM CHLORIDE 0.9%, 500ML IVBOLUS ONE (09:00)
[2018-09-24] MEDS: GUAIFENESIN ER 600 MG TABLET PO SCH ×3 (09:54→21:00)
[2018-09-24] MEDS: BACITRACIN OINT 500U/GM, 15 GM TP SCH ×2 (09:54→22:05)
[2018-09-24] MEDS: SPIRONOLACTONE 25 MG TABLET PO SCH (09:55)
[2018-09-24] MEDS: HYDROCHLOROTHIAZIDE 25 MG TABLET PO SCH (09:55)
[2018-09-24] MEDS: BENZONATATE 100 MG CAPSULE PO SCH ×3 (09:55→22:05)
[2018-09-24] MEDS: FLUTICASONE NASAL SPRAY 16GM NAS SCH ×2 (09:56→21:00)
[2018-09-24] MEDS: FAMOTIDINE 20 MG TABLET PO SCH ×2 (09:59→22:05)
[2018-09-24] MEDS: VANCOMYCIN 1,200 MG in SODIUM CHLORIDE 0.9% 250 ML IV SCH (12:53)
[2018-09-24 13:10] VITALS: BP 105/57
[2018-09-24] MEDS: LIDODERM 5% PATCH TD SCH (15:52)
[2018-09-24 19:35] VITALS: BP 133/78
[2018-09-24] MEDS: PROMETHAZINE/COD. 10MG/6.25MG/5 ML ORAL SOL PO PRN (22:05)
[2018-09-24] MEDS: ENOXAPARIN 40 MG/0.4 ML SQ SCH (22:16)
[2018-09-25] MEDS: VANCOMYCIN 1,200 MG in SODIUM CHLORIDE 0.9% 250 ML IV SCH (01:03)
[2018-09-25 01:04] VITALS: BP 137/70
[2018-09-25] MEDS: ACETAMINOPHEN 500 MG TABLET PO SCH ×4 (03:00→21:49)
[2018-09-25 06:12] LABS: MEAN CORPUSCULAR HEMOGLOBIN 27.6 pg (27.0-34.8); MEAN CORPUSCULAR HGB CONC 31.7 g/dL (32.4-35.8); MEAN CORPUSCULAR VOLUME 87.2 fL (80-100); MEAN PLATELET VOLUME 6.8 fL (7.4-10.4); PLATELET COUNT 500 x10^3/uL (130-400); RED BLOOD COUNT 3.48 x10^6/uL (3.82-5.3); RED CELL DISTRIBUTION WIDTH 16.3 % (9.6-15.2)
[2018-09-25 06:20] LABS: ALBUMIN 2.4 g/dL (3.4-5.0); ANION GAP 4 mmol/L (5-15); CALCIUM 8.7 mg/dL (8.5-10.1); CHLORIDE 106 mmol/L (98-107); CREATININE 1.14 mg/dL (0.55-1.02)
[2018-09-25 06:34] LABS: MD YES
[2018-09-25] MEDS: ALBUTEROL SULFATE 2.5 MG/3 ML NPPB SCH ×3 (06:35→20:09)
[2018-09-25 06:36] LABS: BAND#(MANUAL) 3.43 x10^3/uL; BANDS%(MANUAL) 14 % (0-7); EOS#(MANUAL) 0.25 x10^3/uL (0.0-0.4); EOS% (MANUAL) 1 % (1-7); LYMPH#(MANUAL) 2.94 x10^3/uL (1-3.4); LYMPHS% (MANUAL) 12 % (22-44); METAMYELOCYTES# (MANUAL) 1.47 x10^3/uL (0-0); METAMYELOCYTES% (MANUAL) 6 % (0-1); MONOS#(MANUAL) 1.47 x10^3/uL (0.3-2.7); MONOS% (MANUAL) 6 % (2-9); MYELOCYTES# (MANUAL) 0.25 x10^3/uL (0-0); MYELOCYTES% (MANUAL) 1 % (0-0); NRBC % (MANUAL) 3 % (0-1); SEGS% (MANUAL) 60 % (42-75)
[2018-09-25 06:37] LABS: <PLATELET ESTIMATE> INCREASED; <PLT MORPHOLOGY> NORMAL PLT MORPH; ANISOCYTOSIS 1+; POLYCHROMASIA 1+; TOXIC GRAN 1+
[2018-09-25] MEDS: FAMOTIDINE 20 MG TABLET PO SCH ×2 (09:31→21:48)
[2018-09-25] MEDS: SPIRONOLACTONE 25 MG TABLET PO SCH (09:31)
[2018-09-25] MEDS: FLUTICASONE NASAL SPRAY 16GM NAS SCH ×2 (09:32→21:49)
[2018-09-25] MEDS: HYDROCHLOROTHIAZIDE 25 MG TABLET PO SCH (09:32)
[2018-09-25] MEDS: GUAIFENESIN ER 600 MG TABLET PO SCH ×3 (09:32→21:48)
[2018-09-25] MEDS: BACITRACIN OINT 500U/GM, 15 GM TP SCH ×2 (09:32→21:46)
[2018-09-25] MEDS: BENZONATATE 100 MG CAPSULE PO SCH ×3 (09:32→21:48)
[2018-09-25 09:45] VITALS: BP 121/70
[2018-09-25 15:21] VITALS: BP 138/79
[2018-09-25] MEDS: LIDODERM 5% PATCH TD SCH (15:33)
[2018-09-25] MEDS: FERROUS SULFATE 325 MG TABLET PO SCH (17:10)
[2018-09-25 19:55] VITALS: BP 136/78
[2018-09-25] MEDS: ENOXAPARIN 40 MG/0.4 ML SQ SCH (21:46)
[2018-09-26 00:10] VITALS: BP 132/73
[2018-09-26] MEDS: ACETAMINOPHEN 500 MG TABLET PO SCH ×4 (03:00→22:51)
[2018-09-26 07:00] LABS: ALANINE AMINOTRANSFERASE 14 U/L (12-78); ALBUMIN 2.3 g/dL (3.4-5.0); ANION GAP 8 mmol/L (5-15); CALCIUM 8.7 mg/dL (8.5-10.1); CHLORIDE 105 mmol/L (98-107); CREATININE 1.11 mg/dL (0.55-1.02)
[2018-09-26 07:02] LABS: ALKALINE PHOSPHATASE 119 U/L (45-117); BILIRUBIN,TOTAL 0.2 mg/dL (0.2-1.0); TOTAL PROTEIN 5.9 g/dL (6.4-8.2)
[2018-09-26 07:10] LABS: MEAN CORPUSCULAR HEMOGLOBIN 27.6 pg (27.0-34.8); MEAN CORPUSCULAR HGB CONC 31.7 g/dL (32.4-35.8); MEAN CORPUSCULAR VOLUME 87.2 fL (80-100); MEAN PLATELET VOLUME 7.3 fL (7.4-10.4); PLATELET COUNT 399 x10^3/uL (130-400); RED BLOOD COUNT 3.47 x10^6/uL (3.82-5.3); RED CELL DISTRIBUTION WIDTH 16.5 % (9.6-15.2)
[2018-09-26 07:11] LABS: MD YES
[2018-09-26 07:16] LABS: BAND#(MANUAL) 3.13 x10^3/uL; BANDS%(MANUAL) 18 % (0-7); LYMPH#(MANUAL) 2.78 x10^3/uL (1-3.4); LYMPHS% (MANUAL) 16 % (22-44); METAMYELOCYTES# (MANUAL) 0.35 x10^3/uL (0-0); METAMYELOCYTES% (MANUAL) 2 % (0-1); MONOS#(MANUAL) 1.39 x10^3/uL (0.3-2.7); MONOS% (MANUAL) 8 % (2-9); MYELOCYTES# (MANUAL) 0.52 x10^3/uL (0-0); MYELOCYTES% (MANUAL) 3 % (0-0); NRBC % (MANUAL) 3 % (0-1); SEG#(MANUAL) 9.22 x10^3/uL (1.8-6.8); SEGS% (MANUAL) 53 % (42-75)
[2018-09-26 07:17] LABS: ANISOCYTOSIS 1+; POLYCHROMASIA 1+; TOXIC GRAN 1+
[2018-09-26 07:18] LABS: <PLATELET ESTIMATE> INCREASED; <PLT MORPHOLOGY> NORMAL PLT MORPH
[2018-09-26] MEDS: ALBUTEROL SULFATE 2.5 MG/3 ML NPPB SCH ×2 (08:10→21:00)
[2018-09-26] MEDS: FAMOTIDINE 20 MG TABLET PO SCH ×2 (08:39→22:49)
[2018-09-26] MEDS: PROMETHAZINE/COD. 10MG/6.25MG/5 ML ORAL SOL PO PRN (08:39)
[2018-09-26] MEDS: HYDROCHLOROTHIAZIDE 25 MG TABLET PO SCH (08:39)
[2018-09-26] MEDS: SPIRONOLACTONE 25 MG TABLET PO SCH (08:39)
[2018-09-26] MEDS: GUAIFENESIN ER 600 MG TABLET PO SCH ×3 (08:39→22:49)
[2018-09-26] MEDS: BENZONATATE 100 MG CAPSULE PO SCH ×3 (08:39→22:49)
[2018-09-26] MEDS: FLUTICASONE NASAL SPRAY 16GM NAS SCH ×2 (08:40→22:51)
[2018-09-26 09:05] VITALS: BP 131/80
[2018-09-26] MEDS: BACITRACIN OINT 500U/GM, 15 GM TP SCH ×2 (09:32→22:50)
[2018-09-26] MEDS: CLINDAMYCIN PMX 900MG/50ML 50 ML IV SCH ×2 (14:20→22:49)
[2018-09-26 15:21] VITALS: BP 147/85
[2018-09-26] MEDS: LIDODERM 5% PATCH TD SCH (15:30)
[2018-09-26 19:00] VITALS: BP 130/78
[2018-09-26] MEDS ORDERED: CATHFLO-ALTEPLASE 2 MG/2 ML CATHFLUSH ONE (22:30)
[2018-09-26] MEDS: ENOXAPARIN 40 MG/0.4 ML SQ SCH (23:13)
[2018-09-27 00:14] VITALS: BP 119/74
[2018-09-27] MEDS: ACETAMINOPHEN 500 MG TABLET PO SCH ×4 (03:00→22:43)
[2018-09-27] MEDS: CLINDAMYCIN PMX 900MG/50ML 50 ML IV SCH ×3 (05:42→22:41)
[2018-09-27 06:19] LABS: MEAN CORPUSCULAR HEMOGLOBIN 28.5 pg (27.0-34.8); MEAN CORPUSCULAR HGB CONC 32.8 g/dL (32.4-35.8); MEAN CORPUSCULAR VOLUME 86.7 fL (80-100); MEAN PLATELET VOLUME 7.3 fL (7.4-10.4); PLATELET COUNT 329 x10^3/uL (130-400); RED BLOOD COUNT 3.55 x10^6/uL (3.82-5.3); RED CELL DISTRIBUTION WIDTH 16.7 % (9.6-15.2)
[2018-09-27 06:24] LABS: ALANINE AMINOTRANSFERASE 14 U/L (12-78); ALBUMIN 2.4 g/dL (3.4-5.0); ANION GAP 6 mmol/L (5-15); CHLORIDE 104 mmol/L (98-107)
[2018-09-27 06:27] LABS: ALKALINE PHOSPHATASE 106 U/L (45-117); BILIRUBIN,TOTAL 0.2 mg/dL (0.2-1.0); CREATININE 1.03 mg/dL (0.55-1.02); TOTAL PROTEIN 6.3 g/dL (6.4-8.2)
[2018-09-27 07:38] LABS: BAND#(MANUAL) 1.32 x10^3/uL; BANDS%(MANUAL) 10 % (0-7); LYMPH#(MANUAL) 2.24 x10^3/uL (1-3.4); LYMPHS% (MANUAL) 17 % (22-44); MD YES; SEG#(MANUAL) 7.92 x10^3/uL (1.8-6.8); SEGS% (MANUAL) 60 % (42-75)
[2018-09-27 07:39] LABS: METAMYELOCYTES# (MANUAL) 0.53 x10^3/uL (0-0); METAMYELOCYTES% (MANUAL) 4 % (0-1); MONOS#(MANUAL) 1.06 x10^3/uL (0.3-2.7); MONOS% (MANUAL) 8 % (2-9); MYELOCYTES# (MANUAL) 0.13 x10^3/uL (0-0); MYELOCYTES% (MANUAL) 1 % (0-0); NRBC % (MANUAL) 3 % (0-1); TOXIC GRAN 1+
[2018-09-27 07:40] LABS: ANISOCYTOSIS 1+; POLYCHROMASIA 1+
[2018-09-27 07:41] LABS: <PLATELET ESTIMATE> ADEQUATE; <PLT MORPHOLOGY> NORMAL PLT MORPH
[2018-09-27 07:54] VITALS: BP 125/81
[2018-09-27] MEDS: ALBUTEROL SULFATE 2.5 MG/3 ML NPPB SCH ×2 (09:00→21:00)
[2018-09-27] MEDS: FLUTICASONE NASAL SPRAY 16GM NAS SCH ×2 (09:33→22:42)
[2018-09-27] MEDS: BACITRACIN OINT 500U/GM, 15 GM TP SCH ×2 (09:34→22:41)
[2018-09-27] MEDS: GUAIFENESIN ER 600 MG TABLET PO SCH ×3 (09:34→22:42)
[2018-09-27] MEDS: BENZONATATE 100 MG CAPSULE PO SCH ×3 (09:34→22:42)
[2018-09-27] MEDS: FAMOTIDINE 20 MG TABLET PO SCH ×2 (09:36→22:42)
[2018-09-27] MEDS: SPIRONOLACTONE 25 MG TABLET PO SCH (09:36)
[2018-09-27] MEDS: HYDROCHLOROTHIAZIDE 25 MG TABLET PO SCH (09:36)
[2018-09-27 14:48] VITALS: BP 123/80
[2018-09-27] MEDS: PROMETHAZINE/COD. 10MG/6.25MG/5 ML ORAL SOL PO PRN (15:50)
[2018-09-27] MEDS: LIDODERM 5% PATCH TD SCH (15:50)
[2018-09-27] MEDS: FERROUS SULFATE 325 MG TABLET PO SCH (15:56)
[2018-09-27] MEDS: LACTOBACILLUS CHEW TABLET PO SCH ×2 (15:57→22:42)
[2018-09-27 19:27] VITALS: BP 127/79
[2018-09-27] MEDS: ENOXAPARIN 40 MG/0.4 ML SQ SCH (22:42)
[2018-09-28 01:38] VITALS: BP 117/76
[2018-09-28] MEDS: ACETAMINOPHEN 500 MG TABLET PO SCH ×4 (03:00→21:59)
[2018-09-28] MEDS: CLINDAMYCIN PMX 900MG/50ML 50 ML IV SCH ×3 (06:01→22:00)
[2018-09-28 06:38] LABS: BASOPHILS # (AUTO) 0.08 x10^3/uL (0-0.1); BASOPHILS % (AUTO) 1 % (0-1); EOSINOPHILS # (AUTO) 0.12 x10^3/uL (0-0.4); EOSINOPHILS % (AUTO) 1 % (1-7); LYMPHOCYTES # (AUTO) 2.23 x10^3/uL (1-3.4); LYMPHOCYTES % (AUTO) 20 % (22-44); MD NO; MEAN CORPUSCULAR HEMOGLOBIN 28.5 pg (27.0-34.8); MEAN CORPUSCULAR HGB CONC 33.2 g/dL (32.4-35.8); MEAN CORPUSCULAR VOLUME 85.7 fL (80-100); MEAN PLATELET VOLUME 7.3 fL (7.4-10.4); MONOCYTES # (AUTO) 1.23 x10^3/uL (0.2-0.8); MONOCYTES % (AUTO) 11 % (2-9); NEUTROPHILS # (AUTO) 7.66 x10^3/uL (1.8-6.8); NEUTROPHILS % (AUTO) 68 % (42-75); PLATELET COUNT 298 x10^3/uL (130-400); RED CELL DISTRIBUTION WIDTH 16.4 % (9.6-15.2)
[2018-09-28 06:47] LABS: ANION GAP 5 mmol/L (5-15); CHLORIDE 104 mmol/L (98-107)
[2018-09-28 06:48] LABS: ALANINE AMINOTRANSFERASE 16 U/L (12-78); ALBUMIN 2.7 g/dL (3.4-5.0); CREATININE 1.08 mg/dL (0.55-1.02)
[2018-09-28 06:50] LABS: ALKALINE PHOSPHATASE 98 U/L (45-117); BILIRUBIN,TOTAL 0.2 mg/dL (0.2-1.0)
[2018-09-28 07:46] VITALS: BP 126/82
[2018-09-28] MEDS: FAMOTIDINE 20 MG TABLET PO SCH ×2 (08:51→21:59)
[2018-09-28] MEDS: HYDROCHLOROTHIAZIDE 25 MG TABLET PO SCH (08:51)
[2018-09-28] MEDS: SPIRONOLACTONE 25 MG TABLET PO SCH (08:51)
[2018-09-28] MEDS: GUAIFENESIN ER 600 MG TABLET PO SCH ×3 (08:51→21:58)
[2018-09-28] MEDS: BENZONATATE 100 MG CAPSULE PO SCH ×3 (08:51→22:15)
[2018-09-28] MEDS: LACTOBACILLUS CHEW TABLET PO SCH ×3 (08:51→21:58)
[2018-09-28] MEDS: FLUTICASONE NASAL SPRAY 16GM NAS SCH ×2 (08:51→21:58)
[2018-09-28] MEDS: BACITRACIN OINT 500U/GM, 15 GM TP SCH ×2 (08:52→22:00)
[2018-09-28 13:36] VITALS: BP 121/77
[2018-09-28] MEDS: LIDODERM 5% PATCH TD SCH (15:20)
[2018-09-28] MEDS: ALBUTEROL SULFATE 2.5 MG/3 ML NPPB SCH (20:00)
[2018-09-28 20:02] VITALS: BP 113/75
[2018-09-28] MEDS: ENOXAPARIN 40 MG/0.4 ML SQ SCH (21:59)
[2018-09-29 02:34] VITALS: BP 130/79
[2018-09-29] MEDS: ACETAMINOPHEN 500 MG TABLET PO SCH ×4 (03:00→18:35)
[2018-09-29 05:28] LABS: BASOPHILS # (AUTO) 0.09 x10^3/uL (0-0.1); BASOPHILS % (AUTO) 1 % (0-1); EOSINOPHILS # (AUTO) 0.11 x10^3/uL (0-0.4); EOSINOPHILS % (AUTO) 1 % (1-7); HCT (SEDRATE) 32.7 % (34.6-47.8); LYMPHOCYTES # (AUTO) 2.13 x10^3/uL (1-3.4); LYMPHOCYTES % (AUTO) 22 % (22-44); MD NO; MEAN CORPUSCULAR HEMOGLOBIN 28.5 pg (27.0-34.8); MEAN CORPUSCULAR HGB CONC 33.3 g/dL (32.4-35.8); MEAN CORPUSCULAR VOLUME 85.6 fL (80-100); MEAN PLATELET VOLUME 7.7 fL (7.4-10.4); MONOCYTES # (AUTO) 0.96 x10^3/uL (0.2-0.8); MONOCYTES % (AUTO) 10 % (2-9); NEUTROPHILS # (AUTO) 6.59 x10^3/uL (1.8-6.8); NEUTROPHILS % (AUTO) 67 % (42-75); PLATELET COUNT 276 x10^3/uL (130-400); RED BLOOD COUNT 3.83 x10^6/uL (3.82-5.3); RED CELL DISTRIBUTION WIDTH 16.9 % (9.6-15.2)
[2018-09-29 05:34] LABS: ALANINE AMINOTRANSFERASE 16 U/L (12-78); ALBUMIN 2.7 g/dL (3.4-5.0); ANION GAP 7 mmol/L (5-15); C-REACTIVE PROTEIN, QUANT 0.59 mg/dL (0.02-0.49); CALCIUM 9.2 mg/dL (8.5-10.1); CHLORIDE 104 mmol/L (98-107); CREATININE 1.05 mg/dL (0.55-1.02)
[2018-09-29 05:36] LABS: ALKALINE PHOSPHATASE 94 U/L (45-117); BILIRUBIN,TOTAL 0.2 mg/dL (0.2-1.0); TOTAL PROTEIN 6.9 g/dL (6.4-8.2)
[2018-09-29] MEDS: CLINDAMYCIN PMX 900MG/50ML 50 ML IV SCH ×3 (05:46→21:45)
[2018-09-29 08:17] VITALS: BP 119/68
[2018-09-29] MEDS ORDERED: OMNIPAQUE 350 MG/ML, 100ML BOTTLE ONE (08:32)
[2018-09-29] MEDS: LACTOBACILLUS CHEW TABLET PO SCH ×3 (08:54→21:25)
[2018-09-29] MEDS: GUAIFENESIN ER 600 MG TABLET PO SCH ×3 (08:54→21:25)
[2018-09-29] MEDS: BENZONATATE 100 MG CAPSULE PO SCH ×3 (08:54→21:25)
[2018-09-29] MEDS: SPIRONOLACTONE 25 MG TABLET PO SCH (08:54)
[2018-09-29] MEDS: ERGOCALCIFEROL 50,000 UNIT CAPSULE HOMEMEDPO SCH (08:54)
[2018-09-29] MEDS: HYDROCHLOROTHIAZIDE 25 MG TABLET PO SCH (08:54)
[2018-09-29] MEDS: FAMOTIDINE 20 MG TABLET PO SCH ×2 (08:54→21:25)
[2018-09-29] MEDS: FLUTICASONE NASAL SPRAY 16GM NAS SCH ×2 (08:55→21:25)
[2018-09-29] MEDS: BACITRACIN OINT 500U/GM, 15 GM TP SCH ×2 (08:55→21:26)
[2018-09-29] MEDS: ALBUTEROL SULFATE 2.5 MG/3 ML NPPB SCH (09:00)
[2018-09-29 13:09] VITALS: BP 131/85
[2018-09-29] MEDS: LIDODERM 5% PATCH TD SCH (15:09)
[2018-09-29] MEDS: FERROUS SULFATE 325 MG TABLET PO SCH (17:09)
[2018-09-29 19:13] VITALS: BP 111/73
[2018-09-29] MEDS: ENOXAPARIN 40 MG/0.4 ML SQ SCH (21:26)
[2018-09-30 02:56] VITALS: BP 123/72
[2018-09-30] MEDS: ACETAMINOPHEN 500 MG TABLET PO SCH ×4 (03:00→21:24)
[2018-09-30] MEDS: CLINDAMYCIN PMX 900MG/50ML 50 ML IV SCH ×3 (05:14→21:24)
[2018-09-30 05:55] LABS: BASOPHILS # (AUTO) 0.08 x10^3/uL (0-0.1); BASOPHILS % (AUTO) 1 % (0-1); EOSINOPHILS # (AUTO) 0.12 x10^3/uL (0-0.4); EOSINOPHILS % (AUTO) 2 % (1-7); LYMPHOCYTES # (AUTO) 1.56 x10^3/uL (1-3.4); LYMPHOCYTES % (AUTO) 21 % (22-44); MD NO; MEAN CORPUSCULAR HEMOGLOBIN 28.6 pg (27.0-34.8); MEAN CORPUSCULAR HGB CONC 33.3 g/dL (32.4-35.8); MEAN PLATELET VOLUME 8.2 fL (7.4-10.4); MONOCYTES # (AUTO) 0.85 x10^3/uL (0.2-0.8); MONOCYTES % (AUTO) 11 % (2-9); NEUTROPHILS # (AUTO) 5.02 x10^3/uL (1.8-6.8); NEUTROPHILS % (AUTO) 66 % (42-75); PLATELET COUNT 251 x10^3/uL (130-400); RED BLOOD COUNT 3.78 x10^6/uL (3.82-5.3); RED CELL DISTRIBUTION WIDTH 17.3 % (9.6-15.2)
[2018-09-30 06:00] LABS: ALANINE AMINOTRANSFERASE 17 U/L (12-78); ALBUMIN 2.7 g/dL (3.4-5.0); ANION GAP 6 mmol/L (5-15); CALCIUM 9.2 mg/dL (8.5-10.1); CHLORIDE 105 mmol/L (98-107)
[2018-09-30 06:05] LABS: ALKALINE PHOSPHATASE 91 U/L (45-117); BILIRUBIN,TOTAL 0.1 mg/dL (0.2-1.0); CREATININE 1.02 mg/dL (0.55-1.02); TOTAL PROTEIN 6.8 g/dL (6.4-8.2)
[2018-09-30] MEDS: ALBUTEROL SULFATE 2.5 MG/3 ML NPPB SCH ×3 (07:10→19:45)
[2018-09-30] MEDS: BACITRACIN OINT 500U/GM, 15 GM TP SCH ×2 (08:29→21:24)
[2018-09-30] MEDS: HYDROCHLOROTHIAZIDE 25 MG TABLET PO SCH (08:29)
[2018-09-30] MEDS: GUAIFENESIN ER 600 MG TABLET PO SCH ×3 (08:29→21:24)
[2018-09-30] MEDS: FAMOTIDINE 20 MG TABLET PO SCH ×2 (08:29→21:24)
[2018-09-30] MEDS: SPIRONOLACTONE 25 MG TABLET PO SCH (08:29)
[2018-09-30] MEDS: FLUTICASONE NASAL SPRAY 16GM NAS SCH ×2 (08:29→21:25)
[2018-09-30] MEDS: LACTOBACILLUS CHEW TABLET PO SCH ×3 (08:29→21:24)
[2018-09-30] MEDS: BENZONATATE 100 MG CAPSULE PO SCH ×3 (08:30→21:24)
[2018-09-30 10:38] VITALS: BP 118/78
[2018-09-30] MEDS: LIDODERM 5% PATCH TD SCH (14:19)
[2018-09-30 15:10] VITALS: BP 138/89
[2018-09-30] MEDS: PROMETHAZINE/COD. 10MG/6.25MG/5 ML ORAL SOL PO PRN ×2 (15:38→20:09)
[2018-09-30 19:15] VITALS: BP 126/80
[2018-09-30] MEDS: ENOXAPARIN 40 MG/0.4 ML SQ SCH (22:10)
[2018-10-01] MEDS: ACETAMINOPHEN 500 MG TABLET PO SCH ×3 (03:00→15:28)
[2018-10-01 03:40] VITALS: BP 118/74
[2018-10-01] MEDS: CLINDAMYCIN PMX 900MG/50ML 50 ML IV SCH ×2 (05:43→12:52)
[2018-10-01 08:31] VITALS: BP 141/83
[2018-10-01] MEDS: LACTOBACILLUS CHEW TABLET PO SCH ×2 (08:35→16:24)
[2018-10-01] MEDS: BENZONATATE 100 MG CAPSULE PO SCH ×2 (08:35→16:24)
[2018-10-01] MEDS: FAMOTIDINE 20 MG TABLET PO SCH (08:36)
[2018-10-01] MEDS: FLUTICASONE NASAL SPRAY 16GM NAS SCH (08:36)
[2018-10-01] MEDS: BACITRACIN OINT 500U/GM, 15 GM TP SCH (08:36)
[2018-10-01] MEDS: HYDROCHLOROTHIAZIDE 25 MG TABLET PO SCH (08:36)
[2018-10-01] MEDS: GUAIFENESIN ER 600 MG TABLET PO SCH ×2 (08:36→16:24)
[2018-10-01] MEDS: SPIRONOLACTONE 25 MG TABLET PO SCH (08:36)
[2018-10-01] MEDS: ALBUTEROL SULFATE 2.5 MG/3 ML NPPB SCH (10:55)
[2018-10-01] MEDS: LIDODERM 5% PATCH TD SCH (15:28)
[2018-10-01 16:10] VITALS: BP 131/76
[2018-10-01] MEDS ORDERED: FLUT16SP NAS (16:25)
[2018-10-01] MEDS ORDERED: HYDR25TA6 PO (16:25)
[2018-10-01] MEDS ORDERED: ACID1TAB7 PO ×2 (16:25→17:49)
[2018-10-01] MEDS ORDERED: METH500T7 PO (16:25)
[2018-10-01] MEDS ORDERED: BACI120O TP (16:25)
[2018-10-01] MEDS ORDERED: SPIR25TA PO (16:25)
[2018-10-01] MEDS ORDERED: CLIN300C8 PO (16:25)
[2018-10-01] MEDS ORDERED: FERR-51 PO (16:25)
[2018-10-01] MEDS: FERROUS SULFATE 325 MG TABLET PO SCH (16:26)
[2018-10-01] MEDS ORDERED: ALPR0.254 PO (16:40)
[2018-10-01] MEDS ORDERED: BENZ200C48 PO (17:50)
[2018-10-01] MEDS ORDERED: SPIR25TA5 PO (17:51)
[2018-10-01] MEDS ORDERED: GUAI600T80 PO (17:52)
[2018-10-01] MEDS ORDERED: CLINDAMYCIN 300 MG CAPSULE PO SCH (18:00)
== END 2018-10-01 18:20 | disposition home or self-care (01) | DRG 853 ==
LOC: ED 09:18 → EDIP 11:15 → 3NE 12:55 → 5SO 08-14 01:09 → 4NOR 08-15 15:54 → 5SO 09-04 04:23 → 4NOR 09-05 14:08
PROVIDERS: ADMIT Internal Medicine; ATTEND Hospitalist
PROC: 02HV33Z Insertion of Infusion Device into Superior Vena Cava, Percutaneous Approach (ICD-10-PCS; 2018-08-21)
PROC: B548ZZA Ultrasonography of Superior Vena Cava, Guidance (ICD-10-PCS; 2018-08-21)
PROC: 0W9930Z Drainage of Right Pleural Cavity with Drainage Device, Percutaneous Approach (ICD-10-PCS; 2018-08-21)
PROC: 0W993ZZ Drainage of Right Pleural Cavity, Percutaneous Approach (ICD-10-PCS; 2018-08-29)
PROC: 0BNK4ZZ Release Right Lung, Percutaneous Endoscopic Approach (ICD-10-PCS; principal; 2018-09-06)
DX: A41.02 Sepsis due to Methicillin resistant Staphylococcus aureus (principal); E43 Unspecified severe protein-calorie malnutrition; J15.212 Pneumonia due to Methicillin resistant Staphylococcus aureus; J96.01 Acute respiratory failure with hypoxia; D61.818 Other pancytopenia; E87.1 Hypo-osmolality and hyponatremia; J45.901 Unspecified asthma with (acute) exacerbation; J93.9 Pneumothorax, unspecified; J94.8 Other specified pleural conditions; N17.9 Acute kidney failure, unspecified; D50.9 Iron deficiency anemia, unspecified; R73.02 Impaired glucose tolerance (oral); E66.01 Morbid (severe) obesity due to excess calories; E78.5 Hyperlipidemia, unspecified; E83.42 Hypomagnesemia; E87.6 Hypokalemia; G43.909 Migraine, unspecified, not intractable, without status migrainosus; H53.459 Other localized visual field defect, unspecified eye; I10 Essential (primary) hypertension; J01.90 Acute sinusitis, unspecified; K44.9 Diaphragmatic hernia without obstruction or gangrene; K59.00 Constipation, unspecified; L27.0 Generalized skin eruption due to drugs and medicaments taken internally; Z90.49 Acquired absence of other specified parts of digestive tract; Z79.2 Long term (current) use of antibiotics; Z82.49 Family history of ischemic heart disease and other diseases of the circulatory system; Z88.2 Allergy status to sulfonamides; Z68.38 Body mass index [BMI] 38.0-38.9, adult
CPT/HCPCS: 32555; 36415; 84145; 87400; 99285; J3490; J7613; J7620; 0399T; 36569; 36573; 71045; 71046; 71260; 71275; 74176; 76937; 77001; 80048; 80053; 80061; 80069; 80202; 82040; 83540; 83550; 83605; 83735; 83880; 84100; 84484; 85025; 85651; 86140; 87015; 87040; 87070; 87075; 87077; 87102; 87116; 87147; 87186; 87205; 87206; 87324; 88112; 88305; 93005; 93306; 93970; 94640; 96374; C1729; G0378; J0696; J0712; J1100; J1170; J1644; J1650; J1885; J2185; J2250; J2405; J2550; J2704; J2997; J3010; J3370; J7060; Q0162; Q9967; C1751; C1760; C9113; G0009; J0330; J1200; J1447; J2920; J2930; J3475; J7030; J7040; J7050; J7512; Q0163

== ENCOUNTER 2018-11-11 10:49 | Outpatient (CLI) | payer OTHER ==
[~2018-11-11 10:49] MED LIST: ACID1TAB7 PO; ALBU1.25 NEB; ALPR0.254 PO; BACI120O TP; BENZ-17 PO; BENZ200C48 PO; CHOL500015 PO; CHOL500050 PO; CLIN300C8 PO; FERR-51 PO; FLUT12AE2 INH; FLUT12HF IH; FLUT16SP NAS; GUAI600T31 PO; GUAI600T80 PO; HYDR-3240 PO; HYDR25TA6 PO; LISI-167 PO; METH500T7 PO; SPIR1TAB PO; SPIR25TA PO; SPIR25TA5 PO
== END 2018-11-11 23:59 | disposition home or self-care (01) ==
LOC: CFH 10:49
PROVIDERS: ATTEND Family Medicine
DX: Z12.31 Encounter for screening mammogram for malignant neoplasm of breast (principal)
CPT/HCPCS: 77063; 77067

== ENCOUNTER → 2020-09-20 | Outpatient (CLI) | payer OTHER ==
[~2020-09-20] MED LIST changes: -CLIN300C8 PO; +CLIN300C9 PO; -FLUT16SP NAS; +FLUT16SP24 NAS; +HYDR-1067 PO; -HYDR-3240 PO; +METH-639 PO; -METH500T7 PO
== END | disposition home or self-care (01) ==
LOC: CFH 06:42
PROVIDERS: ATTEND Internal Medicine Cardiovascular Disease
DX: I35.8 Other nonrheumatic aortic valve disorders (principal); I11.9 Hypertensive heart disease without heart failure; I25.10 Atherosclerotic heart disease of native coronary artery without angina pectoris
CPT/HCPCS: 78452; 93017; 93306; A9502

== ENCOUNTER → 2020-12-27 | Outpatient (CLI) | payer OTHER ==
[~2020-12-27] MED LIST changes: -HYDR-1067 PO; +HYDR-2214 PO
== END | disposition home or self-care (01) ==
LOC: CFH 10:28
PROVIDERS: ATTEND Internal Medicine
DX: R92.2 Inconclusive mammogram (principal)
CPT/HCPCS: 76642; 77065

== ENCOUNTER 2021-03-23 07:43 | Inpatient (IN) | payer SELFPAY ==
[~2021-03-23] VITALS: Ht 162.6 cm; Wt 117.2 kg
--- NOTE | 2021-03-23 08:06 | NUR ---
PATIENT WALKED BACK FROM TRIAGE WITH CHIEF C/O COUGH AND N/V X2 DAYS. PATIENT STATES "IT'S MY ASTHMA AND I'M UNABLE TO KEEP ANYTHING DOWN." DENIES FEVER, SOB OR CHEST PAIN. CONNECTED TO MONITOR, VSS, CALL LIGHT WITHIN REACH.
[2021-03-23] MEDS ORDERED: ACETAMINOPHEN 500 MG TABLET ONE (08:10)
--- NOTE | 2021-03-23 08:28 | NUR ---
20 GAUGE IV STARTED LEFT FA, SECOND SET OF BLOOD CX DRAWN, PATIENT MEDICATED PER eMAR, NADN, VSS, CALL LIGHT WITHIN REACH.
[2021-03-23] MEDS ORDERED: SODIUM CHLORIDE FLUSH 10ML SYR IVF ONE (08:30)
[2021-03-23] MEDS ORDERED: ACETAMINOPHEN 500 MG TABLET PO ONE (08:30)
[2021-03-23 08:31] LABS: BASOPHILS % (AUTO) 1 % (0-1); EOSINOPHILS % (AUTO) 0 % (1-7); LYMPHOCYTES % (AUTO) 12 % (22-44); MEAN CORPUSCULAR HEMOGLOBIN 30.5 pg (27.0-34.8); MEAN CORPUSCULAR HGB CONC 34.5 g/dL (32.4-35.8); MEAN PLATELET VOLUME 7.3 fL (7.4-10.4); MONOCYTES % (AUTO) 8 % (2-9); NEUTROPHILS % (AUTO) 79 % (42-75); PLATELET COUNT 252 x10^3/uL (130-400); RED BLOOD COUNT 4.74 x10^6/uL (3.82-5.3); RED CELL DISTRIBUTION WIDTH 13.1 % (9.6-15.2)
[2021-03-23 08:42] LABS: ALANINE AMINOTRANSFERASE 33 U/L (12-78); ALBUMIN 3.5 g/dL (3.4-5.0); ANION GAP 11 mmol/L (5-15); CALCIUM 8.6 mg/dL (8.5-10.1); CHLORIDE 101 mmol/L (98-107); CREATININE 1.64 mg/dL (0.55-1.02)
[2021-03-23 08:47] LABS: ALKALINE PHOSPHATASE 78 U/L (45-117); BILIRUBIN,TOTAL 0.3 mg/dL (0.2-1.0); TOTAL PROTEIN 7.1 g/dL (6.4-8.2)
--- NOTE | 2021-03-23 09:02 | NUR ---
ERMD AT BEDSIDE FOR EVALUATION.
--- NOTE | 2021-03-23 09:30 | NUR ---
Sue mandel in [facility] - 03/23/21 at 1011 by [email or web address] LEFT MESSAGE FOR DAUGHTER TO COME GET PATIENT.
[2021-03-23] MEDS ORDERED: ALBUTEROL/IPRATROPIUM 2.5MG/0.5MG, 3 ML ONE ×2 (09:47→11:16)
[2021-03-23] MEDS: ALBUTEROL/IPRATROPIUM 2.5MG/0.5MG, 3 ML NPPB SCH ×2 (09:58→11:19)
--- NOTE | 2021-03-23 10:12 | NUR ---
PATIENT TOLERATED BREATHING TREATMENT O2 SATURATION UP FROM 92% TO 96%, BP LOW AT 82/41, ERMD NOTIFIED.
--- NOTE | 2021-03-23 10:26 | NUR ---
ABOUT SPOKE WITH ERMD BP, VERBAL ORDER GIVEN FOR FLUID BOLUS. NS BOLUS HUNG.
--- NOTE | 2021-03-23 10:45 | NUR ---
PATIENT DOES NOT WANT SECOND BREATHING TREATMENT AT THIS TIME.
[2021-03-23] MEDS ORDERED: SODIUM CHLORIDE 0.9% 1,000ML IVBOLUS ONE (11:00)
--- NOTE | 2021-03-23 11:18 | NUR ---
PATIENT REQUESTING SECOND BREATHING TREATMENT, BP UP TO 90'S/50'S. SECOND BREATHING TREATMENT STARTED. PATIENT TO BE ADMITTED TO MEDICAL TELEMETRY.
--- NOTE | 2021-03-23 11:53 | NUR ---
SPOKE WITH DAUGHTER AND UPDATED ON POC, DAUGHTER'S NAME AND PHONE NUMBER [place] [phone].
--- NOTE | 2021-03-23 12:58 | NUR ---
PATIENT RESTING IN GURNEY WITH EYES CLOSED, RESP EVEN AND UNLABORED, CONNECTED TO MONITOR, VSS, CALL LIGHT WITHIN REACH. WAITING FOR BED ASSIGNMENT UPSTAIRS.
--- NOTE | 2021-03-23 13:39 | NUR ---
TASK RN: PT RESTING ON GURNEY. NADN. ZAMUDIO.
[2021-03-23] MEDS ORDERED: POTASSIUM CHLORIDE 20 MEQ TAB.ER.PRT ONE (13:47)
[2021-03-23] MEDS ORDERED: POTASSIUM CHLORIDE 20 MEQ TAB.ER.PRT PO ONE (14:00)
[2021-03-23] MEDS ORDERED: ALBUTEROL SULFATE 2.5 MG/3 ML NEB PRN (14:30)
[2021-03-23] MEDS ORDERED: HYDROcodone/APAP 5/325 TABLET PO PRN (14:30)
--- NOTE | 2021-03-23 14:49 | NUR ---
URINE COLLECTED AND SENT TO LAB.
[2021-03-23] MEDS ORDERED: GUAIFENESIN ER 600 MG TABLET ONE (14:58)
[2021-03-23] MEDS: GUAIFENESIN ER 600 MG TABLET PO PRN ×2 (15:04→23:54)
[2021-03-23 15:05] LABS: MICROSCOPIC AUTO
[2021-03-23 15:14] LABS: TROPONIN I < 0.015 ng/mL (0.000-0.045)
[2021-03-23] MEDS ORDERED: ALBUTEROL SULFATE 2.5 MG/3 ML ONE (16:01)
--- NOTE | 2021-03-23 16:14 | NUR ---
BREATHING TREATMENT STARTED, PATIENT'S O2 SATURATION ON RA 91-93%.
--- NOTE | 2021-03-23 16:38 | NUR ---
HOSPITAL BED REQUESTED.
--- NOTE | 2021-03-23 16:47 | NUR ---
PATIENT TOLERATED BREATHING TREATMENT WELL, O2 SATURATION 92-93% AFTER BREATHING TREATMENT, PATIENT RESTING IN GURNEY, CALL LIGHT WITHIN REACH, NO FURTHER NEEDS AT THIS TIME.
--- NOTE | 2021-03-23 17:17 | NUR ---
HOT TEA AND FOOD PROVIDED TO PATIENT.
--- NOTE | 2021-03-23 17:21 | NUR ---
ATTEMPTED TO CALL REPORT, ROOM NOT READY YET, FLOOR RN DISCHARGING PATIENT IN ROOM 419, WILL CALL BACK WHEN ROOM IS READY.
--- NOTE | 2021-03-23 17:39 | NUR ---
PATIENT'S O2 SATURATION DOWN TO 67%, REPLACED 02 SENSOR, O2 SATURATION UP TO 93% RA, OTHER VSS, NADN, CALL LIGHT WITHIN REACH.
--- NOTE | 2021-03-23 18:24 | NUR ---
REPORT GIVEN TO AILEEN AGUSTIN FOR TRANSFER OF PATIENT CARE.
--- NOTE | 2021-03-23 18:26 | NUR ---
ROOM NOT READY, NEEDS TO BE CLEANED DUE TO COVID PATIENT. FLOOR TO CALL WHEN ROOM IS READY.
--- NOTE | 2021-03-23 18:47 | NUR ---
Report from Juan GALLAGHER
--- NOTE | 2021-03-23 18:47 | NUR ---
REPORT GIVEN TO AILEEN CARLOS FOR TRANSFER OF PATIENT CARE.
[2021-03-23] MEDS ORDERED: POLYETHYLENE GLYCOL 17 GM PACKET PO PRN (19:30)
[2021-03-23] MEDS ORDERED: MELATONIN 5 MG TABLET PO PRN (19:30)
[2021-03-23] MEDS ORDERED: ONDANSETRON 2MG/ML, 2ML IVPush PRN (19:30)
--- NOTE | 2021-03-23 19:40 | NUR ---
Pt provided ice chips and positioned for comfort, NADN, VSS, WCTM
[2021-03-23] MEDS: FLUTICASONE NASAL SPRAY 16GM NAS SCH (21:00)
[2021-03-23] MEDS ORDERED: FLUTICASONE INH SCH (21:00)
[2021-03-23] MEDS ORDERED: SALMETEROL INH SCH (21:00)
[2021-03-23] MEDS ORDERED: [UNRECOGNIZED DRUG - OTHER] INH SCH (21:00)
[2021-03-23] MEDS ORDERED: BUDESONIDE 0.5 MG/2 ML INHA INH SCH (21:27)
[2021-03-23] MEDS ORDERED: ENOXAPARIN 40 MG/0.4 ML SQ SCH (21:30)
[2021-03-23] MEDS ORDERED: LEVOFLOXACIN/PMX 500MG/100ML 100 ML IV SCH (21:30)
[2021-03-23 22:26] VITALS: BP 121/63
[2021-03-23] MEDS: NS + 20MEQ KCL 1,000 ML IV SCH (23:09)
[2021-03-23] MEDS: DEXAMETHASONE 4 MG/ML, 1ML IVPush SCH (23:09)
[2021-03-23] MEDS: DEXTROMETHORPHAN 30 MG/5 ML ORAL SOL PO PRN (23:10)
[2021-03-23] MEDS: CALCIUM CARBONATE 500 MG TAB.CHEW PO PRN (23:54)
[2021-03-24] MEDS: TRAZODONE 50MG TABLET PO PRN ×2 (01:31→23:00)
[2021-03-24 01:36] VITALS: BP 105/68
[2021-03-24] MEDS: DEXAMETHASONE 4 MG/ML, 1ML IVPush SCH ×4 (06:04→23:00)
[2021-03-24 06:20] LABS: BASOPHILS % (AUTO) 0 % (0-1); EOSINOPHILS % (AUTO) 0 % (1-7); LYMPHOCYTES % (AUTO) 12 % (22-44); MEAN CORPUSCULAR HEMOGLOBIN 30.9 pg (27.0-34.8); MEAN CORPUSCULAR HGB CONC 34.7 g/dL (32.4-35.8); MEAN PLATELET VOLUME 7.7 fL (7.4-10.4); MONOCYTES % (AUTO) 5 % (2-9); NEUTROPHILS % (AUTO) 84 % (42-75); PLATELET COUNT 232 x10^3/uL (130-400); RED BLOOD COUNT 4.42 x10^6/uL (3.82-5.3); RED CELL DISTRIBUTION WIDTH 13.2 % (9.6-15.2)
[2021-03-24 06:58] LABS: ANION GAP 7 mmol/L (5-15); CALCIUM 8.4 mg/dL (8.5-10.1); CHLORIDE 104 mmol/L (98-107); CREATININE 1.13 mg/dL (0.55-1.02)
[2021-03-24] MEDS ORDERED: ALBUTEROL SULFATE 2.5 MG/3 ML NPPB SCH (07:00)
[2021-03-24 07:52] VITALS: BP 119/61
[2021-03-24] MEDS: FLUTICASONE/VILANTEROL 100-25MCG/INH INH SCH (09:46)
[2021-03-24] MEDS: NS + 20MEQ KCL 1,000 ML IV SCH ×2 (09:48→18:22)
[2021-03-24] MEDS: SENNA/DOCUSATE TABLET PO SCH (09:48)
[2021-03-24] MEDS: FLUTICASONE NASAL SPRAY 16GM NAS SCH ×2 (09:49→21:00)
[2021-03-24] MEDS: CHOLECALCIFEROL 5,000u TAB PO SCH (09:49)
[2021-03-24] MEDS: ALBUTEROL HFA 90 MCG/SPRAY INH PRN ×2 (11:52→20:23)
[2021-03-24 13:24] VITALS: BP 117/61
[2021-03-24] MEDS: CALCIUM CARBONATE 500 MG TAB.CHEW PO PRN ×2 (13:44→18:40)
[2021-03-24] MEDS: GUAIFENESIN ER 600 MG TABLET PO PRN (13:45)
[2021-03-24] MEDS: METHOCARBAMOL 500 MG TABLET PO PRN (13:45)
[2021-03-24] MEDS: DEXTROMETHORPHAN 30 MG/5 ML ORAL SOL PO PRN (13:45)
[2021-03-24] MEDS: BENZONATATE 100 MG CAPSULE PO PRN (15:16)
[2021-03-24] MEDS ORDERED: ENOXAPARIN 40 MG/0.4 ML SQ SCH (15:30)
[2021-03-24] MEDS ORDERED: MONTELUKAST 10 MG TABLET PO SCH (21:00)
[2021-03-24 21:50] VITALS: BP 120/66
[2021-03-24] MEDS: ENOXAPARIN 40 MG/0.4 ML SQ SCH (23:00)
[2021-03-24] MEDS ORDERED: LEVOFLOXACIN/PMX 750MG/150ML 150 ML IV SCH (23:00)
[2021-03-25 01:31] VITALS: BP 100/53
[2021-03-25] MEDS: DEXAMETHASONE 4 MG/ML, 1ML IVPush SCH ×2 (05:00→10:31)
[2021-03-25] MEDS: NS + 20MEQ KCL 1,000 ML IV SCH ×2 (05:00→15:22)
[2021-03-25 07:35] VITALS: BP 116/65
[2021-03-25] MEDS ORDERED: CETIRIZINE 10 MG TABLET PO SCH (09:00)
[2021-03-25] MEDS: CHOLECALCIFEROL 5,000u TAB PO SCH (09:52)
[2021-03-25] MEDS: FLUTICASONE/VILANTEROL 100-25MCG/INH INH SCH (09:52)
[2021-03-25] MEDS: SENNA/DOCUSATE TABLET PO SCH (09:53)
[2021-03-25] MEDS: FLUTICASONE NASAL SPRAY 16GM NAS SCH (09:54)
[2021-03-25] MEDS: METHOCARBAMOL 500 MG TABLET PO PRN (10:31)
[2021-03-25] MEDS: ENOXAPARIN 40 MG/0.4 ML SQ SCH (10:31)
[2021-03-25] MEDS: DEXTROMETHORPHAN 30 MG/5 ML ORAL SOL PO PRN (10:32)
[2021-03-25 12:45] VITALS: BP 119/57
[2021-03-25] MEDS ORDERED: METH4TAB PO (14:34)
[2021-03-25] MEDS ORDERED: LEVO500T8 PO (14:34)
[2021-03-25] MEDS ORDERED: IPRA3AMP30 NEB (14:34)
[2021-03-25] MEDS ORDERED: MONT10TA17 PO (14:34)
[2021-03-25] MEDS ORDERED: GUAI12009 PO (14:34)
[2021-03-25] MEDS: GUAIFENESIN ER 600 MG TABLET PO PRN (15:35)
[2021-03-25] MEDS: BENZONATATE 100 MG CAPSULE PO PRN (15:35)
== END 2021-03-25 17:04 | disposition home or self-care (01) | DRG 177 ==
LOC: ED 11:54 → EDIP 13:37 → 4WST 21:06
PROVIDERS: ADMIT Hospitalist; ATTEND Internal Medicine
DX: U07.1 COVID-19 (principal); J96.01 Acute respiratory failure with hypoxia; N17.9 Acute kidney failure, unspecified; Z68.41 Body mass index [BMI] 40.0-44.9, adult; E86.9 Volume depletion, unspecified; E87.6 Hypokalemia; G47.30 Sleep apnea, unspecified; I12.9 Hypertensive chronic kidney disease with stage 1 through stage 4 chronic kidney disease, or unspecified chronic kidney disease; J44.9 Chronic obstructive pulmonary disease, unspecified; N18.9 Chronic kidney disease, unspecified; Z80.1 Family history of malignant neoplasm of trachea, bronchus and lung; Z82.49 Family history of ischemic heart disease and other diseases of the circulatory system; Z88.1 Allergy status to other antibiotic agents; Z88.0 Allergy status to penicillin; Z88.2 Allergy status to sulfonamides; Z88.8 Allergy status to other drugs, medicaments and biological substances; Z90.49 Acquired absence of other specified parts of digestive tract
CPT/HCPCS: 36415; 84145; 96361; 96374; 99285; J7613; 71045; 80048; 80053; 81001; 82728; 83605; 83615; 83735; 84484; 85025; 85379; 86140; 87040; 93005; G0378; J1100; J1650; J1956; J3480; U0005; J7030; U0003

== ENCOUNTER 2021-03-27 09:24 | Inpatient (IN) | payer MEDICARE ==
[~2021-03-27] VITALS: Ht 162.6 cm; Wt 114.6 kg
[~2021-03-27 09:24] MED LIST changes: +GUAI12009 PO; +IPRA3AMP30 NEB; +LEVO500T8 PO; +METH4TAB PO; +MONT10TA17 PO
--- NOTE | 2021-03-27 09:57 | NUR ---
PT back from triage with chief complaint of worsening covid symptoms. Recently here at [facility] saturday. PT a&ox4, vss on supplemental oxygen
[2021-03-27] MEDS ORDERED: SODIUM CHLORIDE 0.9% 1,000ML IVBOLUS ONE (10:00)
--- NOTE | 2021-03-27 10:01 | NUR ---
BELGICA Ortez at bedside for eval.
[2021-03-27 10:16] LABS: BASOPHILS % (AUTO) 1 % (0-1); EOSINOPHILS % (AUTO) 0 % (1-7); LYMPHOCYTES % (AUTO) 3 % (22-44); MEAN CORPUSCULAR HEMOGLOBIN 30.7 pg (27.0-34.8); MEAN CORPUSCULAR HGB CONC 34.8 g/dL (32.4-35.8); MEAN PLATELET VOLUME 7.4 fL (7.4-10.4); MONOCYTES % (AUTO) 6 % (2-9); NEUTROPHILS % (AUTO) 90 % (42-75); PLATELET COUNT 239 x10^3/uL (130-400); RED BLOOD COUNT 4.47 x10^6/uL (3.82-5.3); RED CELL DISTRIBUTION WIDTH 13.5 % (9.6-15.2)
[2021-03-27 10:27] LABS: ALBUMIN 2.6 g/dL (3.4-5.0); ANION GAP 8 mmol/L (5-15); CALCIUM 8.1 mg/dL (8.5-10.1); CHLORIDE 102 mmol/L (98-107); CREATININE 0.92 mg/dL (0.55-1.02)
[2021-03-27] MEDS ORDERED: ENALAPRILAT 1.25 MG/ML, 2ML IVPush PRN (11:30)
[2021-03-27] MEDS ORDERED: FLUTICASONE/VILANTEROL 100-25MCG/INH INH SCH (11:30)
[2021-03-27] MEDS ORDERED: CYANOCOBALAMIN 1,000 MCG/ML, 1ML IM ONE (11:30)
[2021-03-27] MEDS ORDERED: BUTALB/APAP/CAFFEINE 50MG/325MG/40MG PO PRN (11:30)
[2021-03-27] MEDS ORDERED: hydrALAzine 20 MG/ML, 1ML IVPush PRN (11:30)
--- NOTE | 2021-03-27 11:35 | NUR ---
PT RESTING IN BED. CALL LIGHT IN REACH
[2021-03-27] MEDS ORDERED: ENOXAPARIN 40 MG/0.4 ML SQ SCH (12:04)
[2021-03-27 12:13] LABS: ALBUMIN 2.6 g/dL (3.4-5.0); BILIRUBIN, DIRECT 0.2 mg/dL (0.1-0.2)
[2021-03-27 12:15] LABS: BILIRUBIN,INDIRECT 0.2 mg/dL (0.0-2.0); BILIRUBIN,TOTAL 0.4 mg/dL (0.2-1.0); TOTAL PROTEIN 6.4 g/dL (6.4-8.2)
[2021-03-27] MEDS ORDERED: ENOXAPARIN 40 MG/0.4 ML ONE (12:23)
[2021-03-27] MEDS ORDERED: ASCORBIC ACID 500 MG TABLET ONE (12:23)
[2021-03-27] MEDS ORDERED: CHOLECALCIFEROL 5,000u TAB ONE (12:23)
[2021-03-27] MEDS ORDERED: REMDESIVIR 200 MG in SODIUM CHLORIDE 0.9% 250 ML IVPB ONE (12:30)
[2021-03-27] MEDS: ASCORBIC ACID 500 MG TABLET PO SCH ×2 (12:32→17:55)
[2021-03-27] MEDS: CHOLECALCIFEROL 5,000u TAB PO SCH (12:32)
--- NOTE | 2021-03-27 12:53 | NUR ---
report called to Santos GALLAGHER
[2021-03-27 14:55] VITALS: BP 116/76
[2021-03-27] MEDS: MULTIVITS,STRESS FORMULA 1 TABLET PO SCH (17:55)
[2021-03-27] MEDS: ZINC SULFATE 220 MG CAPSULE PO SCH (17:55)
[2021-03-27] MEDS: ONDANSETRON 2MG/ML, 2ML IVPush PRN (18:00)
[2021-03-27] MEDS: ACETAMINOPHEN 325 MG TABLET PO PRN (19:33)
[2021-03-27] MEDS: GUAIFENESIN/DM 200-20MG, 10ML UDC PO PRN (19:34)
[2021-03-27] MEDS: MELATONIN 5 MG TABLET PO SCH (20:54)
[2021-03-27 20:55] VITALS: BP 112/78
[2021-03-27] MEDS: BENZONATATE 100 MG CAPSULE PO SCH (23:22)
[2021-03-28 01:08] VITALS: BP 114/80
[2021-03-28] MEDS: ONDANSETRON 2MG/ML, 2ML IVPush PRN ×3 (02:40→19:57)
[2021-03-28] MEDS: ACETAMINOPHEN 325 MG TABLET PO PRN ×2 (02:40→09:11)
[2021-03-28 06:03] LABS: BASOPHILS % (AUTO) 0 % (0-1); EOSINOPHILS % (AUTO) 0 % (1-7); LYMPHOCYTES % (AUTO) 6 % (22-44); MEAN CORPUSCULAR HEMOGLOBIN 29.9 pg (27.0-34.8); MEAN CORPUSCULAR HGB CONC 33.9 g/dL (32.4-35.8); MEAN PLATELET VOLUME 7.6 fL (7.4-10.4); MONOCYTES % (AUTO) 7 % (2-9); NEUTROPHILS % (AUTO) 87 % (42-75); PLATELET COUNT 251 x10^3/uL (130-400); RED BLOOD COUNT 4.44 x10^6/uL (3.82-5.3); RED CELL DISTRIBUTION WIDTH 13.4 % (9.6-15.2)
[2021-03-28 06:24] LABS: ALBUMIN 2.2 g/dL (3.4-5.0); ANION GAP 9 mmol/L (5-15); CALCIUM 8.1 mg/dL (8.5-10.1); CHLORIDE 105 mmol/L (98-107)
[2021-03-28 06:27] LABS: ALANINE AMINOTRANSFERASE 53 U/L (12-78); ALKALINE PHOSPHATASE 60 U/L (45-117); BILIRUBIN,TOTAL 0.4 mg/dL (0.2-1.0); CREATININE 0.78 mg/dL (0.55-1.02)
[2021-03-28 08:07] VITALS: BP 100/65
[2021-03-28] MEDS: DEXAMETHASONE 4 MG/ML, 1ML IVPush SCH (08:53)
[2021-03-28] MEDS: BENZONATATE 100 MG CAPSULE PO SCH ×3 (08:54→19:53)
[2021-03-28] MEDS: MULTIVITS,STRESS FORMULA 1 TABLET PO SCH (08:54)
[2021-03-28] MEDS: ASCORBIC ACID 500 MG TABLET PO SCH ×2 (08:55→16:59)
[2021-03-28] MEDS: ZINC SULFATE 220 MG CAPSULE PO SCH (09:10)
[2021-03-28] MEDS: BACLOFEN 10 MG TABLET PO PRN (09:11)
[2021-03-28] MEDS: CETIRIZINE 10 MG TABLET PO SCH (10:00)
[2021-03-28 12:00] VITALS: BP 123/56
[2021-03-28] MEDS: REMDESIVIR 100 MG in SODIUM CHLORIDE 0.9% 250 ML IVPB SCH (14:58)
[2021-03-28] MEDS: FLUTICASONE/VILANTEROL 100-25MCG/INH INH SCH (14:58)
[2021-03-28] MEDS: ENOXAPARIN 40 MG/0.4 ML SQ SCH (14:59)
[2021-03-28] MEDS: CHOLECALCIFEROL 5,000u TAB PO SCH (15:00)
[2021-03-28] MEDS: GUAIFENESIN 200 MG TABLET PO SCH ×3 (15:00→19:50)
[2021-03-28] MEDS: METHOCARBAMOL 500 MG TABLET PO PRN (15:00)
[2021-03-28] MEDS: FERROUS SULFATE 325 MG TABLET PO SCH (15:00)
[2021-03-28 19:43] VITALS: BP 100/68
[2021-03-28] MEDS: MONTELUKAST 10 MG TABLET PO SCH (19:50)
[2021-03-28] MEDS: SPIRONOLACTONE 25 MG TABLET PO SCH (19:51)
[2021-03-28] MEDS: LACTOBACILLUS CHEW TABLET PO SCH (19:51)
[2021-03-28] MEDS: MELATONIN 5 MG TABLET PO SCH (19:51)
[2021-03-28] MEDS: FLUTICASONE NASAL SPRAY 16GM NAS SCH (19:57)
[2021-03-28] MEDS: BACITRACIN OINT 500U/GM, 15 GM TP SCH (20:06)
[2021-03-29 01:35] VITALS: BP 97/61
[2021-03-29] MEDS: ALBUTEROL HFA 90 MCG/SPRAY INH PRN (01:39)
[2021-03-29] MEDS: ONDANSETRON 2MG/ML, 2ML IVPush PRN ×3 (01:58→21:18)
[2021-03-29] MEDS: GUAIFENESIN/DM 200-20MG, 10ML UDC PO PRN ×2 (02:06→21:18)
[2021-03-29 05:34] LABS: BASOPHILS % (AUTO) 0 % (0-1); EOSINOPHILS % (AUTO) 0 % (1-7); LYMPHOCYTES % (AUTO) 7 % (22-44); MEAN CORPUSCULAR HEMOGLOBIN 30.5 pg (27.0-34.8); MEAN CORPUSCULAR HGB CONC 34.2 g/dL (32.4-35.8); MEAN PLATELET VOLUME 7.6 fL (7.4-10.4); MONOCYTES % (AUTO) 7 % (2-9); NEUTROPHILS % (AUTO) 85 % (42-75); PLATELET COUNT 321 x10^3/uL (130-400); RED CELL DISTRIBUTION WIDTH 13.6 % (9.6-15.2)
[2021-03-29 06:22] LABS: ALANINE AMINOTRANSFERASE 50 U/L (12-78); ALBUMIN 2.3 g/dL (3.4-5.0); ALKALINE PHOSPHATASE 66 U/L (45-117); ANION GAP 9 mmol/L (5-15); BILIRUBIN,TOTAL 0.4 mg/dL (0.2-1.0); CALCIUM 7.9 mg/dL (8.5-10.1); CHLORIDE 104 mmol/L (98-107); CREATININE 0.83 mg/dL (0.55-1.02)
[2021-03-29] MEDS: LISINOPRIL 10 MG TABLET PO SCH (09:00)
[2021-03-29] MEDS ORDERED: CHOLECALCIFEROL 5,000u TAB PO SCH (09:00)
[2021-03-29] MEDS: BACITRACIN OINT 500U/GM, 15 GM TP SCH ×2 (09:00→21:00)
[2021-03-29 09:04] VITALS: BP 99/67
[2021-03-29] MEDS: DEXAMETHASONE 4 MG/ML, 1ML IVPush SCH (09:14)
[2021-03-29] MEDS: FLUTICASONE/VILANTEROL 100-25MCG/INH INH SCH (09:14)
[2021-03-29] MEDS: BUTALB/APAP/CAFFEINE 50MG/325MG/40MG PO PRN ×3 (09:16→21:19)
[2021-03-29] MEDS: ONDANSETRON ODT 4 MG PO PRN (09:17)
[2021-03-29 10:49] VITALS: BP 101/69
[2021-03-29] MEDS: FLUTICASONE NASAL SPRAY 16GM NAS SCH ×2 (10:51→21:17)
[2021-03-29] MEDS: SPIRONOLACTONE 25 MG TABLET PO SCH ×2 (10:51→21:19)
[2021-03-29] MEDS: ASCORBIC ACID 500 MG TABLET PO SCH ×2 (10:51→16:34)
[2021-03-29] MEDS: HYDROCHLOROTHIAZIDE 25 MG TABLET PO SCH (10:51)
[2021-03-29] MEDS: BENZONATATE 100 MG CAPSULE PO SCH ×3 (10:52→21:19)
[2021-03-29] MEDS: MULTIVITS,STRESS FORMULA 1 TABLET PO SCH (10:52)
[2021-03-29] MEDS: CHOLECALCIFEROL 5,000u TAB PO SCH (10:52)
[2021-03-29] MEDS: ZINC SULFATE 220 MG CAPSULE PO SCH (10:52)
[2021-03-29] MEDS: CETIRIZINE 10 MG TABLET PO SCH (10:52)
[2021-03-29] MEDS: GUAIFENESIN 200 MG TABLET PO SCH ×3 (10:52→21:19)
[2021-03-29] MEDS: LACTOBACILLUS CHEW TABLET PO SCH ×2 (10:52→21:19)
[2021-03-29] MEDS: ENOXAPARIN 40 MG/0.4 ML SQ SCH ×2 (10:53→22:40)
[2021-03-29] MEDS ORDERED: LOSA100T14 PO (10:58)
[2021-03-29] MEDS: REMDESIVIR 100 MG in SODIUM CHLORIDE 0.9% 250 ML IVPB SCH (13:47)
[2021-03-29 14:02] VITALS: BP 108/72
[2021-03-29 19:49] VITALS: BP 106/70
[2021-03-29] MEDS: MELATONIN 5 MG TABLET PO SCH (21:00)
[2021-03-29] MEDS: MONTELUKAST 10 MG TABLET PO SCH (21:20)
[2021-03-30 01:45] VITALS: BP 123/80
[2021-03-30 05:59] LABS: BASOPHILS % (AUTO) 0 % (0-1); EOSINOPHILS % (AUTO) 0 % (1-7); LYMPHOCYTES % (AUTO) 6 % (22-44); MEAN CORPUSCULAR HEMOGLOBIN 30.4 pg (27.0-34.8); MEAN CORPUSCULAR HGB CONC 34.3 g/dL (32.4-35.8); MEAN PLATELET VOLUME 7.5 fL (7.4-10.4); MONOCYTES % (AUTO) 4 % (2-9); NEUTROPHILS % (AUTO) 90 % (42-75); PLATELET COUNT 361 x10^3/uL (130-400); RED BLOOD COUNT 4.57 x10^6/uL (3.82-5.3); RED CELL DISTRIBUTION WIDTH 13.6 % (9.6-15.2)
[2021-03-30 06:10] LABS: ALBUMIN 2.1 g/dL (3.4-5.0); ANION GAP 6 mmol/L (5-15); CALCIUM 8.1 mg/dL (8.5-10.1); CHLORIDE 104 mmol/L (98-107)
[2021-03-30 06:14] LABS: ALANINE AMINOTRANSFERASE 38 U/L (12-78); ALKALINE PHOSPHATASE 66 U/L (45-117); BILIRUBIN,TOTAL 0.6 mg/dL (0.2-1.0); CREATININE 0.78 mg/dL (0.55-1.02); TOTAL PROTEIN 5.8 g/dL (6.4-8.2)
[2021-03-30 07:31] VITALS: BP 112/71
[2021-03-30] MEDS: GUAIFENESIN 200 MG TABLET PO SCH ×3 (08:05→20:18)
[2021-03-30] MEDS: BENZONATATE 100 MG CAPSULE PO SCH ×3 (08:06→20:18)
[2021-03-30] MEDS: ASCORBIC ACID 500 MG TABLET PO SCH ×2 (08:06→15:34)
[2021-03-30] MEDS: MULTIVITS,STRESS FORMULA 1 TABLET PO SCH (08:06)
[2021-03-30] MEDS: SPIRONOLACTONE 25 MG TABLET PO SCH ×2 (08:06→20:18)
[2021-03-30] MEDS: CHOLECALCIFEROL 5,000u TAB PO SCH (08:06)
[2021-03-30] MEDS: LACTOBACILLUS CHEW TABLET PO SCH ×2 (08:06→20:18)
[2021-03-30] MEDS: FLUTICASONE NASAL SPRAY 16GM NAS SCH ×2 (08:07→20:17)
[2021-03-30] MEDS: DEXAMETHASONE 4 MG/ML, 1ML IVPush SCH (08:07)
[2021-03-30] MEDS: CETIRIZINE 10 MG TABLET PO SCH (08:07)
[2021-03-30] MEDS: ZINC SULFATE 220 MG CAPSULE PO SCH (08:07)
[2021-03-30] MEDS: LISINOPRIL 10 MG TABLET PO SCH (08:07)
[2021-03-30] MEDS: ACETAMINOPHEN 325 MG TABLET PO PRN ×2 (08:16→18:13)
[2021-03-30] MEDS: ONDANSETRON 2MG/ML, 2ML IVPush PRN (08:31)
[2021-03-30] MEDS: BUTALB/APAP/CAFFEINE 50MG/325MG/40MG PO PRN (08:31)
[2021-03-30] MEDS: HYDROCHLOROTHIAZIDE 25 MG TABLET PO SCH (09:00)
[2021-03-30] MEDS: FERROUS SULFATE 325 MG TABLET PO SCH (09:00)
[2021-03-30] MEDS ORDERED: ZINC SULFATE 220 MG CAPSULE PO SCH ×2 (09:00)
[2021-03-30] MEDS: BACITRACIN OINT 500U/GM, 15 GM TP SCH ×2 (09:00→20:29)
[2021-03-30] MEDS: ENOXAPARIN 40 MG/0.4 ML SQ SCH (11:18)
[2021-03-30] MEDS: FLUTICASONE/VILANTEROL 100-25MCG/INH INH SCH (11:44)
[2021-03-30 12:37] VITALS: BP 145/78
[2021-03-30] MEDS: REMDESIVIR 100 MG in SODIUM CHLORIDE 0.9% 250 ML IVPB SCH (12:45)
[2021-03-30 17:42] VITALS: BP 104/71
[2021-03-30] MEDS: ALBUTEROL HFA 90 MCG/SPRAY INH PRN (18:12)
[2021-03-30 19:51] VITALS: BP 107/70
[2021-03-30] MEDS: MELATONIN 5 MG TABLET PO SCH (20:18)
[2021-03-30] MEDS: MONTELUKAST 10 MG TABLET PO SCH (20:18)
[2021-03-31] VITALS (7 sets, daily range): BP systolic 98–114; BP diastolic 61–77
[2021-03-31] MEDS: ENOXAPARIN 40 MG/0.4 ML SQ SCH ×3 (00:11→21:55)
[2021-03-31] MEDS: ALBUTEROL HFA 90 MCG/SPRAY INH PRN (03:28)
[2021-03-31 05:37] LABS: HCT (SEDRATE) 41.7 % (34.6-47.8)
[2021-03-31 05:47] LABS: ANION GAP 8 mmol/L (5-15); CALCIUM 8.6 mg/dL (8.5-10.1); CHLORIDE 104 mmol/L (98-107)
[2021-03-31 06:07] LABS: ALANINE AMINOTRANSFERASE 31 U/L (12-78); ALKALINE PHOSPHATASE 72 U/L (45-117); BILIRUBIN,TOTAL 0.5 mg/dL (0.2-1.0); CREATININE 0.82 mg/dL (0.55-1.02); TOTAL PROTEIN 5.8 g/dL (6.4-8.2)
[2021-03-31] MEDS: FLUTICASONE NASAL SPRAY 16GM NAS SCH ×2 (07:55→20:03)
[2021-03-31] MEDS: LISINOPRIL 10 MG TABLET PO SCH (07:55)
[2021-03-31] MEDS: FLUTICASONE/VILANTEROL 100-25MCG/INH INH SCH (07:55)
[2021-03-31] MEDS: LACTOBACILLUS CHEW TABLET PO SCH ×2 (07:56→20:02)
[2021-03-31] MEDS: HYDROCHLOROTHIAZIDE 25 MG TABLET PO SCH (07:56)
[2021-03-31] MEDS: GUAIFENESIN 200 MG TABLET PO SCH ×3 (07:56→20:02)
[2021-03-31] MEDS: MULTIVITS,STRESS FORMULA 1 TABLET PO SCH (07:56)
[2021-03-31] MEDS: CETIRIZINE 10 MG TABLET PO SCH (07:56)
[2021-03-31] MEDS: BENZONATATE 100 MG CAPSULE PO SCH ×3 (07:56→20:03)
[2021-03-31] MEDS: ASCORBIC ACID 500 MG TABLET PO SCH ×2 (07:57→16:16)
[2021-03-31] MEDS: CHOLECALCIFEROL 5,000u TAB PO SCH (07:57)
[2021-03-31] MEDS: SPIRONOLACTONE 25 MG TABLET PO SCH ×2 (07:57→20:02)
[2021-03-31] MEDS: DEXAMETHASONE 4 MG/ML, 1ML IVPush SCH ×2 (07:58→20:02)
[2021-03-31] MEDS: BACITRACIN OINT 500U/GM, 15 GM TP SCH ×2 (07:58→20:03)
[2021-03-31] MEDS: ZINC SULFATE 220 MG CAPSULE PO SCH (07:58)
[2021-03-31] MEDS: ACETAMINOPHEN 325 MG TABLET PO PRN (09:25)
[2021-03-31 10:45] LABS: TROPONIN I 0.016 ng/mL (0.000-0.045)
[2021-03-31] MEDS: SENNA/DOCUSATE TABLET PO SCH (11:30)
[2021-03-31] MEDS ORDERED: FUROSEMIDE 40 MG/4 ML IV ONE (11:30)
[2021-03-31 13:40] LABS: TROPONIN I < 0.015 ng/mL (0.000-0.045)
[2021-03-31] MEDS: REMDESIVIR 100 MG in SODIUM CHLORIDE 0.9% 250 ML IVPB SCH (14:28)
[2021-03-31] MEDS: MONTELUKAST 10 MG TABLET PO SCH (20:02)
[2021-03-31] MEDS: GUAIFENESIN/DM 200-20MG, 10ML UDC PO PRN (20:02)
[2021-03-31] MEDS: MELATONIN 5 MG TABLET PO SCH (20:03)
[2021-04-01 02:33] VITALS: BP 104/65
[2021-04-01 05:40] LABS: BASOPHILS % (AUTO) 0 % (0-1); EOSINOPHILS % (AUTO) 1 % (1-7); LYMPHOCYTES % (AUTO) 2 % (22-44); MEAN CORPUSCULAR HGB CONC 33.9 g/dL (32.4-35.8); MEAN PLATELET VOLUME 7.9 fL (7.4-10.4); MONOCYTES % (AUTO) 2 % (2-9); NEUTROPHILS % (AUTO) 95 % (42-75); PLATELET COUNT 475 x10^3/uL (130-400); RED BLOOD COUNT 4.46 x10^6/uL (3.82-5.3); RED CELL DISTRIBUTION WIDTH 13.7 % (9.6-15.2)
[2021-04-01 05:54] LABS: CHLORIDE 98 mmol/L (98-107)
[2021-04-01 06:05] LABS: ALANINE AMINOTRANSFERASE 29 U/L (12-78); ALKALINE PHOSPHATASE 80 U/L (45-117); ANION GAP 8 mmol/L (5-15); BILIRUBIN,TOTAL 0.6 mg/dL (0.2-1.0); CREATININE 0.81 mg/dL (0.55-1.02); TOTAL PROTEIN 6.3 g/dL (6.4-8.2)
[2021-04-01 07:58] VITALS: BP 105/71
[2021-04-01] MEDS ORDERED: FUROSEMIDE 40 MG/4 ML IV ONE (08:00)
[2021-04-01] MEDS: LISINOPRIL 10 MG TABLET PO SCH ×2 (09:00→09:31)
[2021-04-01] MEDS: POLYETHYLENE GLYCOL 17 GM PACKET NG PRN (09:29)
[2021-04-01] MEDS: DEXAMETHASONE 4 MG/ML, 1ML IVPush SCH ×2 (09:31→21:00)
[2021-04-01] MEDS: SPIRONOLACTONE 25 MG TABLET PO SCH ×2 (09:32→21:01)
[2021-04-01] MEDS: GUAIFENESIN 200 MG TABLET PO SCH ×2 (09:32→16:09)
[2021-04-01] MEDS: FERROUS SULFATE 325 MG TABLET PO SCH (09:32)
[2021-04-01] MEDS: LACTOBACILLUS CHEW TABLET PO SCH ×2 (09:32→21:00)
[2021-04-01] MEDS: HYDROCHLOROTHIAZIDE 25 MG TABLET PO SCH (09:32)
[2021-04-01] MEDS: ZINC SULFATE 220 MG CAPSULE PO SCH (09:32)
[2021-04-01] MEDS: CETIRIZINE 10 MG TABLET PO SCH (09:32)
[2021-04-01] MEDS: MULTIVITS,STRESS FORMULA 1 TABLET PO SCH (09:32)
[2021-04-01] MEDS: ASCORBIC ACID 500 MG TABLET PO SCH ×2 (09:33→16:09)
[2021-04-01] MEDS: SENNA/DOCUSATE TABLET PO SCH (09:33)
[2021-04-01] MEDS: BENZONATATE 100 MG CAPSULE PO SCH ×2 (09:33→16:09)
[2021-04-01] MEDS: CHOLECALCIFEROL 5,000u TAB PO SCH (09:34)
[2021-04-01] MEDS: FLUTICASONE NASAL SPRAY 16GM NAS SCH ×2 (09:34→21:00)
[2021-04-01] MEDS: FLUTICASONE/VILANTEROL 100-25MCG/INH INH SCH (09:35)
[2021-04-01] MEDS: ONDANSETRON 2MG/ML, 2ML IVPush PRN (11:04)
[2021-04-01] MEDS: ENOXAPARIN 40 MG/0.4 ML SQ SCH (11:04)
[2021-04-01] MEDS: BACITRACIN OINT 500U/GM, 15 GM TP SCH ×3 (11:04→21:02)
[2021-04-01] MEDS: ALBUTEROL HFA 90 MCG/SPRAY INH PRN ×2 (11:14→21:00)
[2021-04-01 13:29] VITALS: BP 105/68
[2021-04-01 20:25] VITALS: BP 98/63
[2021-04-01] MEDS: BENZONATATE 100 MG CAPSULE PO PRN (21:00)
[2021-04-01] MEDS ORDERED: GUAIFENESIN 100 MG/5 ML, 5ML UDC PO PRN (21:00)
[2021-04-01] MEDS: MELATONIN 5 MG TABLET PO SCH (21:01)
[2021-04-01] MEDS: MONTELUKAST 10 MG TABLET PO SCH (21:01)
[2021-04-01] MEDS: GUAIFENESIN 100 MG/5 ML, 10ML UDC PO SCH (21:23)
[2021-04-02 00:01] VITALS: BP 112/73
[2021-04-02 05:45] LABS: BASOPHILS % (AUTO) 0 % (0-1); EOSINOPHILS % (AUTO) 0 % (1-7); LYMPHOCYTES % (AUTO) 2 % (22-44); MEAN CORPUSCULAR HEMOGLOBIN 30.5 pg (27.0-34.8); MEAN CORPUSCULAR HGB CONC 34.1 g/dL (32.4-35.8); MEAN PLATELET VOLUME 7.7 fL (7.4-10.4); MONOCYTES % (AUTO) 3 % (2-9); NEUTROPHILS % (AUTO) 95 % (42-75); PLATELET COUNT 513 x10^3/uL (130-400); RED BLOOD COUNT 4.73 x10^6/uL (3.82-5.3); RED CELL DISTRIBUTION WIDTH 13.6 % (9.6-15.2)
[2021-04-02 05:48] LABS: ANION GAP 6 mmol/L (5-15); CALCIUM 9.4 mg/dL (8.5-10.1); CHLORIDE 98 mmol/L (98-107)
[2021-04-02 05:52] LABS: ALANINE AMINOTRANSFERASE 28 U/L (12-78); ALKALINE PHOSPHATASE 76 U/L (45-117); BILIRUBIN,TOTAL 0.5 mg/dL (0.2-1.0); CREATININE 0.89 mg/dL (0.55-1.02); TOTAL PROTEIN 6.5 g/dL (6.4-8.2)
[2021-04-02 07:45] VITALS: BP 114/74
[2021-04-02] MEDS: LACTOBACILLUS CHEW TABLET PO SCH ×2 (08:24→19:32)
[2021-04-02] MEDS: MULTIVITS,STRESS FORMULA 1 TABLET PO SCH (08:24)
[2021-04-02] MEDS: ASCORBIC ACID 500 MG TABLET PO SCH ×2 (08:24→16:56)
[2021-04-02] MEDS: CHOLECALCIFEROL 5,000u TAB PO SCH (08:25)
[2021-04-02] MEDS: SENNA/DOCUSATE TABLET PO SCH (08:25)
[2021-04-02] MEDS: ZINC SULFATE 220 MG CAPSULE PO SCH (08:25)
[2021-04-02] MEDS: SPIRONOLACTONE 25 MG TABLET PO SCH ×2 (08:26→19:32)
[2021-04-02] MEDS: POLYETHYLENE GLYCOL 17 GM PACKET NG PRN (08:26)
[2021-04-02] MEDS: CETIRIZINE 10 MG TABLET PO SCH (08:26)
[2021-04-02] MEDS: FLUTICASONE/VILANTEROL 100-25MCG/INH INH SCH (08:27)
[2021-04-02] MEDS: BACITRACIN OINT 500U/GM, 15 GM TP SCH ×2 (08:27→21:51)
[2021-04-02] MEDS: DEXAMETHASONE 4 MG/ML, 1ML IVPush SCH ×2 (08:27→19:33)
[2021-04-02] MEDS: FLUTICASONE NASAL SPRAY 16GM NAS SCH ×2 (08:28→19:43)
[2021-04-02] MEDS: GUAIFENESIN 100 MG/5 ML, 10ML UDC PO SCH ×3 (08:29→19:32)
[2021-04-02] MEDS: HYDROCHLOROTHIAZIDE 25 MG TABLET PO SCH (08:30)
[2021-04-02] MEDS: NYSTATIN 500,000 UNITS/5 ML UDC PO SCH ×3 (11:38→19:32)
[2021-04-02] MEDS: ENOXAPARIN 40 MG/0.4 ML SQ SCH ×3 (11:38→23:40)
[2021-04-02 13:52] VITALS: BP 103/68
[2021-04-02] MEDS ORDERED: FUROSEMIDE 40 MG/4 ML IV ONE (16:00)
[2021-04-02] MEDS: MONTELUKAST 10 MG TABLET PO SCH (19:32)
[2021-04-02] MEDS: MELATONIN 5 MG TABLET PO SCH (19:32)
[2021-04-03] MEDS: ACETAMINOPHEN 325 MG TABLET PO PRN (04:03)
[2021-04-03] MEDS: GUAIFENESIN/DM 200-20MG, 10ML UDC PO PRN (04:03)
[2021-04-03] MEDS: BENZONATATE 100 MG CAPSULE PO PRN ×2 (04:03→21:05)
[2021-04-03 04:49] LABS: ANION GAP 3 mmol/L (5-15); CALCIUM 8.7 mg/dL (8.5-10.1); CHLORIDE 99 mmol/L (98-107); CREATININE 0.84 mg/dL (0.55-1.02)
[2021-04-03] MEDS: NYSTATIN 500,000 UNITS/5 ML UDC PO SCH ×4 (06:00→21:05)
[2021-04-03] MEDS: FUROSEMIDE 40 MG/4 ML IV SCH ×2 (08:57→16:47)
[2021-04-03] MEDS: DEXAMETHASONE 4 MG/ML, 1ML IVPush SCH (08:57)
[2021-04-03] MEDS: ASCORBIC ACID 500 MG TABLET PO SCH ×2 (08:57→16:47)
[2021-04-03] MEDS: SENNA/DOCUSATE TABLET PO SCH (08:57)
[2021-04-03] MEDS: ZINC SULFATE 220 MG CAPSULE PO SCH (08:58)
[2021-04-03] MEDS: THIAMINE 100MG TABLET PO SCH (08:58)
[2021-04-03] MEDS: LACTOBACILLUS CHEW TABLET PO SCH ×2 (08:58→21:05)
[2021-04-03] MEDS: CHOLECALCIFEROL 5,000u TAB PO SCH (08:58)
[2021-04-03] MEDS: MULTIVITS,STRESS FORMULA 1 TABLET PO SCH (08:59)
[2021-04-03] MEDS: CETIRIZINE 10 MG TABLET PO SCH (08:59)
[2021-04-03] MEDS: FLUTICASONE/VILANTEROL 100-25MCG/INH INH SCH (09:00)
[2021-04-03] MEDS: AZITHROMYCIN 500 MG TABLET PO SCH (09:00)
[2021-04-03] MEDS: FERROUS SULFATE 325 MG TABLET PO SCH (09:00)
[2021-04-03] MEDS: GUAIFENESIN 100 MG/5 ML, 10ML UDC PO SCH ×3 (09:00→21:05)
[2021-04-03] MEDS: FLUTICASONE NASAL SPRAY 16GM NAS SCH ×2 (09:02→21:04)
[2021-04-03] MEDS: BACITRACIN OINT 500U/GM, 15 GM TP SCH ×2 (09:02→21:06)
[2021-04-03] MEDS: ENOXAPARIN 40 MG/0.4 ML SQ SCH ×2 (11:06→23:45)
[2021-04-03] MEDS: MONTELUKAST 10 MG TABLET PO SCH (21:05)
[2021-04-03] MEDS: BACLOFEN 10 MG TABLET PO PRN (21:05)
[2021-04-03] MEDS: MELATONIN 5 MG TABLET PO SCH (21:05)
[2021-04-04 04:23] LABS: BASOPHILS % (AUTO) 0 % (0-1); EOSINOPHILS % (AUTO) 0 % (1-7); LYMPHOCYTES % (AUTO) 6 % (22-44); MEAN CORPUSCULAR HEMOGLOBIN 30.2 pg (27.0-34.8); MEAN CORPUSCULAR HGB CONC 33.8 g/dL (32.4-35.8); MEAN PLATELET VOLUME 7.3 fL (7.4-10.4); MONOCYTES % (AUTO) 4 % (2-9); NEUTROPHILS % (AUTO) 91 % (42-75); PLATELET COUNT 527 x10^3/uL (130-400); RED CELL DISTRIBUTION WIDTH 13.2 % (9.6-15.2)
[2021-04-04 04:33] LABS: ANION GAP 9 mmol/L (5-15); CALCIUM 8.9 mg/dL (8.5-10.1); CHLORIDE 96 mmol/L (98-107); CREATININE 0.89 mg/dL (0.55-1.02)
[2021-04-04] MEDS: NYSTATIN 500,000 UNITS/5 ML UDC PO SCH ×5 (05:21→20:54)
[2021-04-04] MEDS: FUROSEMIDE 40 MG/4 ML IV SCH ×2 (09:16→18:02)
[2021-04-04] MEDS: ASCORBIC ACID 500 MG TABLET PO SCH ×2 (09:16→18:02)
[2021-04-04] MEDS: DEXAMETHASONE 4 MG/ML, 1ML IVPush SCH (09:16)
[2021-04-04] MEDS: AZITHROMYCIN 500 MG TABLET PO SCH (09:16)
[2021-04-04] MEDS: ZINC SULFATE 220 MG CAPSULE PO SCH (09:17)
[2021-04-04] MEDS: CHOLECALCIFEROL 5,000u TAB PO SCH (09:17)
[2021-04-04] MEDS: THIAMINE 100MG TABLET PO SCH (09:17)
[2021-04-04] MEDS: BACITRACIN OINT 500U/GM, 15 GM TP SCH ×2 (09:25→20:49)
[2021-04-04] MEDS: ENOXAPARIN 40 MG/0.4 ML SQ SCH ×2 (12:41→22:19)
[2021-04-04] MEDS: MONTELUKAST 10 MG TABLET PO SCH (20:49)
[2021-04-04] MEDS: GUAIFENESIN/DM 200-20MG, 10ML UDC PO PRN (21:40)
[2021-04-05] MEDS: GUAIFENESIN/DM 200-20MG, 10ML UDC PO PRN (05:29)
[2021-04-05] MEDS: NYSTATIN 500,000 UNITS/5 ML UDC PO SCH (05:33)
[2021-04-05 07:54] LABS: ANION GAP 10 mmol/L (5-15); CALCIUM 8.7 mg/dL (8.5-10.1); CHLORIDE 94 mmol/L (98-107); CREATININE 0.81 mg/dL (0.55-1.02)
[2021-04-05] MEDS: BACITRACIN OINT 500U/GM, 15 GM TP SCH ×2 (09:00→19:57)
[2021-04-05] MEDS ORDERED: CHOLECALCIFEROL 5,000u TAB PO ONE (09:30)
[2021-04-05] MEDS: FUROSEMIDE 40 MG/4 ML IV SCH ×2 (10:00→17:39)
[2021-04-05] MEDS: ASCORBIC ACID 500 MG TABLET PO SCH ×2 (10:01→17:39)
[2021-04-05] MEDS: DEXAMETHASONE 4 MG/ML, 1ML IVPush SCH (10:01)
[2021-04-05] MEDS: ZINC SULFATE 220 MG CAPSULE PO SCH (10:01)
[2021-04-05] MEDS: THIAMINE 100MG TABLET PO SCH (10:02)
[2021-04-05] MEDS: AZITHROMYCIN 500 MG TABLET PO SCH (10:02)
[2021-04-05] MEDS: ENOXAPARIN 40 MG/0.4 ML SQ SCH (11:44)
[2021-04-05] MEDS: ONDANSETRON 2MG/ML, 2ML IVPush PRN ×2 (11:44→18:12)
[2021-04-05] MEDS: MONTELUKAST 10 MG TABLET PO SCH (19:57)
[2021-04-05] MEDS ORDERED: PROMETHAZINE 25 MG/ML, 1ML ONE (21:50)
[2021-04-05] MEDS: PROMETHAZINE 25 MG/ML, 1ML IM PRN (21:52)
[2021-04-06] MEDS ORDERED: MAGNESIUM SULFATE PMX 2GM/50ML 50 ML ONE (02:12)
[2021-04-06] MEDS: ENOXAPARIN 40 MG/0.4 ML SQ SCH ×2 (04:15→16:59)
[2021-04-06 04:22] LABS: BASOPHILS % (AUTO) 0 % (0-1); EOSINOPHILS % (AUTO) 1 % (1-7); LYMPHOCYTES % (AUTO) 7 % (22-44); MEAN CORPUSCULAR HEMOGLOBIN 30.5 pg (27.0-34.8); MEAN CORPUSCULAR HGB CONC 34.6 g/dL (32.4-35.8); MEAN PLATELET VOLUME 7.2 fL (7.4-10.4); MONOCYTES % (AUTO) 4 % (2-9); NEUTROPHILS % (AUTO) 87 % (42-75); PLATELET COUNT 492 x10^3/uL (130-400); RED BLOOD COUNT 4.48 x10^6/uL (3.82-5.3); RED CELL DISTRIBUTION WIDTH 13.4 % (9.6-15.2)
[2021-04-06 04:34] LABS: ANION GAP 9 mmol/L (5-15); CHLORIDE 93 mmol/L (98-107)
[2021-04-06 04:35] LABS: CREATININE 0.92 mg/dL (0.55-1.02)
[2021-04-06 04:55] LABS: D-DIMER 0.76 ug/mlFEU (0.00-0.52); FIBRINOGEN > 713 mg/dL (200-340)
[2021-04-06] MEDS: POTASSIUM CHLORIDE 20 MEQ TAB.ER.PRT PO SCH ×5 (08:00→20:25)
[2021-04-06] MEDS: DEXAMETHASONE 4 MG/ML, 1ML IVPush SCH (09:19)
[2021-04-06] MEDS: FUROSEMIDE 40 MG/4 ML IV SCH ×2 (09:19→16:59)
[2021-04-06] MEDS: ZINC SULFATE 220 MG CAPSULE PO SCH ×2 (09:19→13:37)
[2021-04-06] MEDS: THIAMINE 100MG TABLET PO SCH ×2 (09:20→13:36)
[2021-04-06] MEDS: AZITHROMYCIN 500 MG TABLET PO SCH ×2 (09:20→13:37)
[2021-04-06] MEDS: PROMETHAZINE 25 MG/ML, 1ML IM PRN ×2 (09:20→15:38)
[2021-04-06] MEDS: BACITRACIN OINT 500U/GM, 15 GM TP SCH ×2 (09:21→20:38)
[2021-04-06] MEDS: ASCORBIC ACID 500 MG TABLET PO SCH ×2 (09:21→13:36)
[2021-04-06] MEDS ORDERED: DOCUSATE 50 MG/5 ML, 10ML UDC PO PRN (09:30)
[2021-04-06] MEDS ORDERED: SENNA 176 MG/5 ML ORAL SOL NG PRN (09:30)
[2021-04-06] MEDS ORDERED: LACTULOSE 20 GM/30 ML UDC PO PRN (09:30)
[2021-04-06] MEDS ORDERED: PROMETHAZINE 25 MG/ML, 1ML IM PRN (09:30)
[2021-04-06] MEDS: BISACODYL 10 MG SUPP PR PRN (13:39)
[2021-04-06] MEDS: ACETAMINOPHEN 325 MG TABLET PO PRN (18:04)
[2021-04-06 19:48] VITALS: BP 114/73
[2021-04-06 20:11] VITALS: BP 101/54
[2021-04-06] MEDS: MONTELUKAST 10 MG TABLET PO SCH (20:25)
[2021-04-07 00:43] VITALS: BP 106/62
[2021-04-07] MEDS: PROMETHAZINE 25 MG/ML, 1ML IM PRN ×2 (02:00→10:00)
[2021-04-07] MEDS: ENOXAPARIN 40 MG/0.4 ML SQ SCH ×2 (05:17→18:22)
[2021-04-07 08:11] LABS: BASOPHILS % (AUTO) 0 % (0-1); EOSINOPHILS % (AUTO) 1 % (1-7); LYMPHOCYTES % (AUTO) 7 % (22-44); MEAN CORPUSCULAR HEMOGLOBIN 30.2 pg (27.0-34.8); MEAN CORPUSCULAR HGB CONC 34.2 g/dL (32.4-35.8); MEAN PLATELET VOLUME 7.2 fL (7.4-10.4); MONOCYTES % (AUTO) 6 % (2-9); NEUTROPHILS % (AUTO) 86 % (42-75); PLATELET COUNT 491 x10^3/uL (130-400); RED BLOOD COUNT 4.79 x10^6/uL (3.82-5.3); RED CELL DISTRIBUTION WIDTH 12.9 % (9.6-15.2)
[2021-04-07 08:22] LABS: ANION GAP 7 mmol/L (5-15); CALCIUM 9.3 mg/dL (8.5-10.1); CHLORIDE 91 mmol/L (98-107)
[2021-04-07 08:43] VITALS: BP 98/55
[2021-04-07] MEDS: BACITRACIN OINT 500U/GM, 15 GM TP SCH ×2 (09:00→20:09)
[2021-04-07] MEDS: ASCORBIC ACID 500 MG TABLET PO SCH ×2 (09:45→18:21)
[2021-04-07] MEDS: FUROSEMIDE 40 MG/4 ML IV SCH ×2 (09:45→18:21)
[2021-04-07] MEDS: DEXAMETHASONE 4 MG/ML, 1ML IVPush SCH (09:46)
[2021-04-07 14:53] VITALS: BP 109/64
[2021-04-07 19:44] VITALS: BP 100/63
[2021-04-07] MEDS: MONTELUKAST 10 MG TABLET PO SCH (20:10)
[2021-04-07] MEDS: POTASSIUM CHLORIDE 20 MEQ TAB.ER.PRT PO SCH (22:16)
[2021-04-08 02:13] VITALS: BP 102/64
[2021-04-08 04:36] LABS: BASOPHILS % (AUTO) 0 % (0-1); EOSINOPHILS % (AUTO) 1 % (1-7); LYMPHOCYTES % (AUTO) 10 % (22-44); MEAN PLATELET VOLUME 7.3 fL (7.4-10.4); MONOCYTES % (AUTO) 7 % (2-9); NEUTROPHILS % (AUTO) 82 % (42-75); PLATELET COUNT 457 x10^3/uL (130-400); RED BLOOD COUNT 4.53 x10^6/uL (3.82-5.3); RED CELL DISTRIBUTION WIDTH 13.2 % (9.6-15.2)
[2021-04-08 04:43] LABS: CHLORIDE 89 mmol/L (98-107)
[2021-04-08 04:49] LABS: ANION GAP 8 mmol/L (5-15); CALCIUM 9.2 mg/dL (8.5-10.1); CREATININE 0.96 mg/dL (0.55-1.02)
[2021-04-08] MEDS: ENOXAPARIN 40 MG/0.4 ML SQ SCH ×2 (05:11→18:50)
[2021-04-08] MEDS: FUROSEMIDE 40 MG/4 ML IV SCH ×2 (07:33→18:50)
[2021-04-08] MEDS: POTASSIUM CHLORIDE 20 MEQ TAB.ER.PRT PO SCH ×2 (07:33→18:50)
[2021-04-08] MEDS: ASCORBIC ACID 500 MG TABLET PO SCH ×2 (07:33→18:51)
[2021-04-08] MEDS: DEXAMETHASONE 4 MG/ML, 1ML IVPush SCH (07:34)
[2021-04-08] MEDS: ACETAMINOPHEN 325 MG TABLET PO PRN (07:34)
[2021-04-08] MEDS: ZINC SULFATE 220 MG CAPSULE PO SCH (07:34)
[2021-04-08] MEDS: THIAMINE 100MG TABLET PO SCH (07:34)
[2021-04-08] MEDS: AZITHROMYCIN 500 MG TABLET PO SCH (07:35)
[2021-04-08] MEDS: BACITRACIN OINT 500U/GM, 15 GM TP SCH ×2 (07:35→20:16)
[2021-04-08 07:53] VITALS: BP 114/65
[2021-04-08 14:19] VITALS: BP 114/43
[2021-04-08] MEDS ORDERED: PHARMACY INSTRUCTION MC PRN ×2 (19:30→19:34)
[2021-04-08 20:11] LABS: ALANINE AMINOTRANSFERASE 138 U/L (12-78); ALBUMIN 2.5 g/dL (3.4-5.0); ANION GAP 10 mmol/L (5-15); CALCIUM 9.4 mg/dL (8.5-10.1); CHLORIDE 90 mmol/L (98-107)
[2021-04-08 20:13] LABS: ALKALINE PHOSPHATASE 76 U/L (45-117); BILIRUBIN,TOTAL 0.5 mg/dL (0.2-1.0); TOTAL PROTEIN 7.3 g/dL (6.4-8.2)
[2021-04-08] MEDS: MONTELUKAST 10 MG TABLET PO SCH (20:13)
[2021-04-08 20:20] VITALS: BP 111/76
[2021-04-08] MEDS: REMDESIVIR 100 MG in SODIUM CHLORIDE 0.9% 250 ML IVPB SCH (21:15)
[2021-04-09 00:07] VITALS: BP 110/71
[2021-04-09] MEDS ORDERED: CALCIUM CARBONATE 500 MG TAB.CHEW ONE (03:08)
[2021-04-09 04:24] LABS: BASOPHILS % (AUTO) 0 % (0-1); EOSINOPHILS % (AUTO) 1 % (1-7); LYMPHOCYTES % (AUTO) 12 % (22-44); MEAN CORPUSCULAR HEMOGLOBIN 30.4 pg (27.0-34.8); MEAN CORPUSCULAR HGB CONC 34.6 g/dL (32.4-35.8); MEAN PLATELET VOLUME 7.4 fL (7.4-10.4); MONOCYTES % (AUTO) 8 % (2-9); NEUTROPHILS % (AUTO) 79 % (42-75); PLATELET COUNT 405 x10^3/uL (130-400); RED BLOOD COUNT 4.34 x10^6/uL (3.82-5.3)
[2021-04-09 04:33] LABS: ALANINE AMINOTRANSFERASE 112 U/L (12-78); ALBUMIN 2.1 g/dL (3.4-5.0); ANION GAP 10 mmol/L (5-15); CALCIUM 8.6 mg/dL (8.5-10.1); CHLORIDE 92 mmol/L (98-107); CREATININE 0.82 mg/dL (0.55-1.02)
[2021-04-09 04:35] LABS: ALKALINE PHOSPHATASE 65 U/L (45-117); BILIRUBIN,TOTAL 0.4 mg/dL (0.2-1.0); TOTAL PROTEIN 6.2 g/dL (6.4-8.2)
[2021-04-09] MEDS: ENOXAPARIN 40 MG/0.4 ML SQ SCH ×2 (05:12→16:22)
[2021-04-09] MEDS: FUROSEMIDE 40 MG/4 ML IV SCH ×2 (07:52→16:20)
[2021-04-09] MEDS: DEXAMETHASONE 4 MG/ML, 1ML IVPush SCH (07:52)
[2021-04-09] MEDS: POTASSIUM CHLORIDE 20 MEQ TAB.ER.PRT PO SCH ×2 (07:53→16:20)
[2021-04-09] MEDS: THIAMINE 100MG TABLET PO SCH (07:53)
[2021-04-09] MEDS: ASCORBIC ACID 500 MG TABLET PO SCH ×2 (07:53→16:20)
[2021-04-09] MEDS: AZITHROMYCIN 500 MG TABLET PO SCH (07:53)
[2021-04-09 08:05] VITALS: BP 109/62
[2021-04-09] MEDS: BACITRACIN OINT 500U/GM, 15 GM TP SCH ×2 (09:00→20:48)
[2021-04-09] MEDS: ZINC SULFATE 220 MG CAPSULE PO SCH (09:00)
[2021-04-09] MEDS: ONDANSETRON ODT 4 MG PO PRN (09:23)
[2021-04-09 16:28] VITALS: BP 105/58
[2021-04-09 19:04] VITALS: BP 100/58
[2021-04-09] MEDS: REMDESIVIR 100 MG in SODIUM CHLORIDE 0.9% 250 ML IVPB SCH (20:33)
[2021-04-09] MEDS: MONTELUKAST 10 MG TABLET PO SCH (20:33)
[2021-04-10 02:00] VITALS: BP 106/64
[2021-04-10] MEDS: ENOXAPARIN 40 MG/0.4 ML SQ SCH ×2 (05:55→16:48)
[2021-04-10 05:56] LABS: BASOPHILS % (AUTO) 0 % (0-1); EOSINOPHILS % (AUTO) 2 % (1-7); LYMPHOCYTES % (AUTO) 12 % (22-44); MEAN CORPUSCULAR HEMOGLOBIN 30.1 pg (27.0-34.8); MEAN CORPUSCULAR HGB CONC 34.4 g/dL (32.4-35.8); MEAN PLATELET VOLUME 7.5 fL (7.4-10.4); MONOCYTES % (AUTO) 9 % (2-9); NEUTROPHILS % (AUTO) 77 % (42-75); PLATELET COUNT 343 x10^3/uL (130-400); RED BLOOD COUNT 4.28 x10^6/uL (3.82-5.3); RED CELL DISTRIBUTION WIDTH 13.4 % (9.6-15.2)
[2021-04-10 06:07] LABS: CHLORIDE 93 mmol/L (98-107)
[2021-04-10 06:14] LABS: D-DIMER 0.37 ug/mlFEU (0.00-0.52)
[2021-04-10 06:20] LABS: ALANINE AMINOTRANSFERASE 97 U/L (12-78); ALBUMIN 2.2 g/dL (3.4-5.0); ALKALINE PHOSPHATASE 67 U/L (45-117); ANION GAP 10 mmol/L (5-15); BILIRUBIN,TOTAL 0.5 mg/dL (0.2-1.0); CREATININE 0.77 mg/dL (0.55-1.02); TOTAL PROTEIN 6.2 g/dL (6.4-8.2)
[2021-04-10] MEDS: DEXAMETHASONE 4 MG/ML, 1ML IVPush SCH (08:24)
[2021-04-10] MEDS: AZITHROMYCIN 500 MG TABLET PO SCH (08:25)
[2021-04-10] MEDS: POTASSIUM CHLORIDE 20 MEQ TAB.ER.PRT PO SCH ×3 (08:25→20:07)
[2021-04-10] MEDS: FUROSEMIDE 40 MG/4 ML IV SCH ×2 (08:25→16:48)
[2021-04-10] MEDS: THIAMINE 100MG TABLET PO SCH (08:26)
[2021-04-10] MEDS: BACITRACIN OINT 500U/GM, 15 GM TP SCH ×2 (08:26→21:00)
[2021-04-10 09:09] VITALS: BP 91/50
[2021-04-10 12:36] VITALS: BP 121/55
[2021-04-10 19:01] VITALS: BP 97/57
[2021-04-10] MEDS: REMDESIVIR 100 MG in SODIUM CHLORIDE 0.9% 250 ML IVPB SCH (20:07)
[2021-04-10] MEDS: MONTELUKAST 10 MG TABLET PO SCH (20:07)
[2021-04-11] MEDS: CALCIUM CARBONATE 500 MG TAB.CHEW PO PRN (01:30)
[2021-04-11 02:20] VITALS: BP 104/61
[2021-04-11] MEDS: ENOXAPARIN 40 MG/0.4 ML SQ SCH ×2 (05:00→17:13)
[2021-04-11 06:15] LABS: BASOPHILS % (AUTO) 1 % (0-1); EOSINOPHILS % (AUTO) 2 % (1-7); LYMPHOCYTES % (AUTO) 12 % (22-44); MEAN CORPUSCULAR HEMOGLOBIN 30.3 pg (27.0-34.8); MEAN CORPUSCULAR HGB CONC 34.2 g/dL (32.4-35.8); MEAN PLATELET VOLUME 7.5 fL (7.4-10.4); MONOCYTES % (AUTO) 8 % (2-9); NEUTROPHILS % (AUTO) 78 % (42-75); PLATELET COUNT 348 x10^3/uL (130-400); RED BLOOD COUNT 4.42 x10^6/uL (3.82-5.3); RED CELL DISTRIBUTION WIDTH 13.5 % (9.6-15.2)
[2021-04-11 06:26] LABS: ALANINE AMINOTRANSFERASE 104 U/L (12-78); ALBUMIN 2.4 g/dL (3.4-5.0); ANION GAP 8 mmol/L (5-15); CALCIUM 8.7 mg/dL (8.5-10.1); CHLORIDE 96 mmol/L (98-107); CREATININE 0.74 mg/dL (0.55-1.02)
[2021-04-11 06:28] LABS: ALKALINE PHOSPHATASE 70 U/L (45-117); BILIRUBIN,TOTAL 0.5 mg/dL (0.2-1.0); TOTAL PROTEIN 6.2 g/dL (6.4-8.2)
[2021-04-11 08:05] VITALS: BP 99/60
[2021-04-11] MEDS: BACITRACIN OINT 500U/GM, 15 GM TP SCH ×2 (09:00→21:00)
[2021-04-11] MEDS: FUROSEMIDE 40 MG/4 ML IV SCH ×2 (09:38→17:14)
[2021-04-11] MEDS: DEXAMETHASONE 4 MG/ML, 1ML IVPush SCH (09:38)
[2021-04-11] MEDS: POTASSIUM CHLORIDE 20 MEQ TAB.ER.PRT PO SCH ×3 (09:38→21:00)
[2021-04-11] MEDS: THIAMINE 100MG TABLET PO SCH (09:38)
[2021-04-11] MEDS: ACETAMINOPHEN 325 MG TABLET PO PRN (11:38)
[2021-04-11] MEDS: ONDANSETRON ODT 4 MG PO PRN (11:39)
[2021-04-11 14:01] VITALS: BP 103/56
[2021-04-11 19:44] VITALS: BP 101/47
[2021-04-11] MEDS: REMDESIVIR 100 MG in SODIUM CHLORIDE 0.9% 250 ML IVPB SCH (19:44)
[2021-04-11] MEDS: MONTELUKAST 10 MG TABLET PO SCH (21:36)
[2021-04-12] MEDS: ALBUTEROL HFA 90 MCG/SPRAY INH PRN ×2 (00:29→06:10)
[2021-04-12] MEDS: ENOXAPARIN 40 MG/0.4 ML SQ SCH ×2 (05:00→16:32)
[2021-04-12 06:14] LABS: CHLORIDE 100 mmol/L (98-107)
[2021-04-12 06:21] LABS: ALANINE AMINOTRANSFERASE 98 U/L (12-78); ALBUMIN 2.2 g/dL (3.4-5.0); ALKALINE PHOSPHATASE 70 U/L (45-117); ANION GAP 7 mmol/L (5-15); BILIRUBIN,TOTAL 0.4 mg/dL (0.2-1.0); CALCIUM 8.7 mg/dL (8.5-10.1); CREATININE 0.72 mg/dL (0.55-1.02); TOTAL PROTEIN 6.2 g/dL (6.4-8.2)
[2021-04-12 07:58] VITALS: BP 99/63
[2021-04-12] MEDS: FUROSEMIDE 40 MG/4 ML IV SCH ×2 (08:13→16:32)
[2021-04-12] MEDS: POTASSIUM CHLORIDE 20 MEQ TAB.ER.PRT PO SCH ×3 (08:13→20:47)
[2021-04-12] MEDS: THIAMINE 100MG TABLET PO SCH (08:13)
[2021-04-12] MEDS: DEXAMETHASONE 4 MG/ML, 1ML IVPush SCH (08:14)
[2021-04-12] MEDS: BACITRACIN OINT 500U/GM, 15 GM TP SCH ×2 (08:14→20:49)
[2021-04-12 13:18] VITALS: BP 122/69
[2021-04-12 19:14] VITALS: BP 99/59
[2021-04-12] MEDS: REMDESIVIR 100 MG in SODIUM CHLORIDE 0.9% 250 ML IVPB SCH (20:46)
[2021-04-12] MEDS: MONTELUKAST 10 MG TABLET PO SCH (20:47)
[2021-04-12] MEDS: CALCIUM CARBONATE 500 MG TAB.CHEW PO PRN (23:12)
[2021-04-13] MEDS: ENOXAPARIN 40 MG/0.4 ML SQ SCH ×2 (05:33→16:26)
[2021-04-13 05:34] VITALS: BP 109/60
[2021-04-13 07:48] LABS: ALBUMIN 2.2 g/dL (3.4-5.0); ANION GAP 7 mmol/L (5-15); CALCIUM 9.1 mg/dL (8.5-10.1); CHLORIDE 98 mmol/L (98-107)
[2021-04-13 07:52] LABS: ALANINE AMINOTRANSFERASE 83 U/L (12-78); ALKALINE PHOSPHATASE 74 U/L (45-117); BILIRUBIN,TOTAL 0.5 mg/dL (0.2-1.0); CREATININE 0.76 mg/dL (0.55-1.02); TOTAL PROTEIN 6.3 g/dL (6.4-8.2)
[2021-04-13] MEDS: DEXAMETHASONE 4 MG/ML, 1ML IVPush SCH (08:23)
[2021-04-13] MEDS: POTASSIUM CHLORIDE 20 MEQ TAB.ER.PRT PO SCH ×3 (08:23→21:06)
[2021-04-13] MEDS: FUROSEMIDE 40 MG/4 ML IV SCH ×2 (08:23→17:04)
[2021-04-13] MEDS: BACITRACIN OINT 500U/GM, 15 GM TP SCH ×2 (08:24→21:00)
[2021-04-13] MEDS: THIAMINE 100MG TABLET PO SCH (08:24)
[2021-04-13 08:28] VITALS: BP 120/59
[2021-04-13 13:01] VITALS: BP 105/57
[2021-04-13] MEDS: ALBUTEROL HFA 90 MCG/SPRAY INH PRN (17:58)
[2021-04-13 20:00] VITALS: BP 102/55
[2021-04-13] MEDS: MONTELUKAST 10 MG TABLET PO SCH (21:06)
[2021-04-13] MEDS: CALCIUM CARBONATE 500 MG TAB.CHEW PO PRN (23:13)
[2021-04-14] MEDS: ENOXAPARIN 40 MG/0.4 ML SQ SCH ×2 (05:55→18:10)
[2021-04-14 08:17] VITALS: BP 104/54
[2021-04-14] MEDS ORDERED: FUROSEMIDE 40 MG/4 ML IV SCH (09:00)
[2021-04-14] MEDS: BACITRACIN OINT 500U/GM, 15 GM TP SCH ×2 (09:00→20:41)
[2021-04-14] MEDS ORDERED: POTASSIUM CHLORIDE 20 MEQ TAB.ER.PRT PO SCH (09:00)
[2021-04-14] MEDS: ASCORBIC ACID 500 MG TABLET PO SCH ×2 (09:59→20:57)
[2021-04-14] MEDS: DEXAMETHASONE 4 MG/ML, 1ML IVPush SCH (09:59)
[2021-04-14] MEDS: THIAMINE 100MG TABLET PO SCH (09:59)
[2021-04-14] MEDS: CHOLECALCIFEROL 5,000u TAB PO SCH (10:00)
[2021-04-14] MEDS: ZINC SULFATE 220 MG CAPSULE PO SCH (10:00)
[2021-04-14] MEDS: ALBUTEROL HFA 90 MCG/SPRAY INH PRN (11:11)
[2021-04-14 13:00] VITALS: BP 110/57
[2021-04-14 19:14] VITALS: BP 107/54
[2021-04-14] MEDS: MONTELUKAST 10 MG TABLET PO SCH (20:57)
[2021-04-14] MEDS: CALCIUM CARBONATE 500 MG TAB.CHEW PO PRN (22:58)
[2021-04-15 05:46] VITALS: BP 107/64
[2021-04-15] MEDS: ENOXAPARIN 40 MG/0.4 ML SQ SCH ×2 (05:50→17:16)
[2021-04-15 06:25] VITALS: BP 112/57
[2021-04-15 08:34] LABS: ALBUMIN 2.3 g/dL (3.4-5.0); BASOPHILS % (AUTO) 0 % (0-1); CHLORIDE 101 mmol/L (98-107); EOSINOPHILS % (AUTO) 4 % (1-7); LYMPHOCYTES % (AUTO) 15 % (22-44); MEAN CORPUSCULAR HEMOGLOBIN 30.1 pg (27.0-34.8); MEAN CORPUSCULAR HGB CONC 33.7 g/dL (32.4-35.8); MEAN PLATELET VOLUME 7.6 fL (7.4-10.4); MONOCYTES % (AUTO) 4 % (2-9); NEUTROPHILS % (AUTO) 76 % (42-75); PLATELET COUNT 313 x10^3/uL (130-400); RED BLOOD COUNT 3.97 x10^6/uL (3.82-5.3); RED CELL DISTRIBUTION WIDTH 13.7 % (9.6-15.2)
[2021-04-15 08:46] LABS: HCT (SEDRATE) 35.4 % (34.6-47.8)
[2021-04-15 08:49] LABS: ANION GAP 7 mmol/L (5-15); CALCIUM 8.8 mg/dL (8.5-10.1); CREATININE 0.72 mg/dL (0.55-1.02)
[2021-04-15 08:50] LABS: ALANINE AMINOTRANSFERASE 57 U/L (12-78); ALKALINE PHOSPHATASE 69 U/L (45-117); BILIRUBIN,TOTAL 0.3 mg/dL (0.2-1.0)
[2021-04-15] MEDS: BACITRACIN OINT 500U/GM, 15 GM TP SCH ×2 (09:00→20:55)
[2021-04-15] MEDS: THIAMINE 100MG TABLET PO SCH (09:35)
[2021-04-15] MEDS: DEXAMETHASONE 4 MG/ML, 1ML IVPush SCH (09:35)
[2021-04-15] MEDS: CHOLECALCIFEROL 5,000u TAB PO SCH (09:35)
[2021-04-15] MEDS: ASCORBIC ACID 500 MG TABLET PO SCH ×2 (09:36→20:52)
[2021-04-15] MEDS: ZINC SULFATE 220 MG CAPSULE PO SCH (09:36)
[2021-04-15 12:25] VITALS: BP 116/64
[2021-04-15 19:58] VITALS: BP 118/61
[2021-04-15] MEDS: MONTELUKAST 10 MG TABLET PO SCH (20:52)
[2021-04-15] MEDS: CALCIUM CARBONATE 500 MG TAB.CHEW PO PRN (23:09)
[2021-04-16] MEDS: ALBUTEROL HFA 90 MCG/SPRAY INH PRN (01:27)
[2021-04-16 06:21] VITALS: BP 108/59
[2021-04-16] MEDS: ENOXAPARIN 40 MG/0.4 ML SQ SCH ×2 (06:25→16:58)
[2021-04-16 08:25] LABS: BASOPHILS % (AUTO) 0 % (0-1); EOSINOPHILS % (AUTO) 3 % (1-7); LYMPHOCYTES % (AUTO) 15 % (22-44); MEAN CORPUSCULAR HEMOGLOBIN 29.7 pg (27.0-34.8); MEAN CORPUSCULAR HGB CONC 32.5 g/dL (32.4-35.8); MEAN PLATELET VOLUME 7.1 fL (7.4-10.4); MONOCYTES % (AUTO) 5 % (2-9); NEUTROPHILS % (AUTO) 77 % (42-75); PLATELET COUNT 325 x10^3/uL (130-400); RED BLOOD COUNT 4.15 x10^6/uL (3.82-5.3); RED CELL DISTRIBUTION WIDTH 14.4 % (9.6-15.2)
[2021-04-16 08:35] LABS: ALANINE AMINOTRANSFERASE 47 U/L (12-78); ALBUMIN 2.5 g/dL (3.4-5.0); ANION GAP 5 mmol/L (5-15); C-REACTIVE PROTEIN, QUANT 0.86 mg/dL (0.02-0.49); CALCIUM 9.3 mg/dL (8.5-10.1); CHLORIDE 105 mmol/L (98-107)
[2021-04-16 08:37] LABS: ALKALINE PHOSPHATASE 69 U/L (45-117); BILIRUBIN,TOTAL 0.2 mg/dL (0.2-1.0); CREATININE 0.76 mg/dL (0.55-1.02); TOTAL PROTEIN 6.2 g/dL (6.4-8.2)
[2021-04-16 08:39] VITALS: BP 116/55
[2021-04-16] MEDS: ASCORBIC ACID 500 MG TABLET PO SCH ×2 (08:40→20:03)
[2021-04-16] MEDS: DEXAMETHASONE 4 MG/ML, 1ML IVPush SCH (08:40)
[2021-04-16] MEDS: BACITRACIN OINT 500U/GM, 15 GM TP SCH ×2 (08:41→20:07)
[2021-04-16] MEDS: ZINC SULFATE 220 MG CAPSULE PO SCH (08:41)
[2021-04-16] MEDS: THIAMINE 100MG TABLET PO SCH (08:41)
[2021-04-16] MEDS: CHOLECALCIFEROL 5,000u TAB PO SCH (08:42)
[2021-04-16] MEDS: GUAIFENESIN/COD200MG-20MG/10ML LIQUID PO PRN (12:11)
[2021-04-16 14:00] VITALS: BP 115/63
[2021-04-16 18:50] VITALS: BP 106/56
[2021-04-16] MEDS: MONTELUKAST 10 MG TABLET PO SCH (20:03)
[2021-04-16] MEDS: CALCIUM CARBONATE 500 MG TAB.CHEW PO PRN (22:46)
[2021-04-17] MEDS: ENOXAPARIN 40 MG/0.4 ML SQ SCH ×2 (06:01→18:30)
[2021-04-17 06:29] LABS: BASOPHILS % (AUTO) 1 % (0-1); EOSINOPHILS % (AUTO) 3 % (1-7); LYMPHOCYTES % (AUTO) 14 % (22-44); MEAN CORPUSCULAR HEMOGLOBIN 29.7 pg (27.0-34.8); MEAN CORPUSCULAR HGB CONC 32.8 g/dL (32.4-35.8); MONOCYTES % (AUTO) 7 % (2-9); NEUTROPHILS % (AUTO) 75 % (42-75); PLATELET COUNT 313 x10^3/uL (130-400)
[2021-04-17 06:40] LABS: ALANINE AMINOTRANSFERASE 37 U/L (12-78); ALBUMIN 2.2 g/dL (3.4-5.0); ANION GAP 4 mmol/L (5-15); C-REACTIVE PROTEIN, QUANT 0.39 mg/dL (0.02-0.49); CALCIUM 9.2 mg/dL (8.5-10.1); CHLORIDE 108 mmol/L (98-107); CREATININE 0.76 mg/dL (0.55-1.02)
[2021-04-17 06:42] LABS: ALKALINE PHOSPHATASE 68 U/L (45-117); BILIRUBIN,TOTAL 0.2 mg/dL (0.2-1.0); TOTAL PROTEIN 5.7 g/dL (6.4-8.2)
[2021-04-17 08:09] VITALS: BP 121/79
[2021-04-17] MEDS: DEXAMETHASONE 4 MG/ML, 1ML IVPush SCH (08:46)
[2021-04-17] MEDS: THIAMINE 100MG TABLET PO SCH (08:46)
[2021-04-17] MEDS: BACITRACIN OINT 500U/GM, 15 GM TP SCH ×2 (08:47→20:22)
[2021-04-17] MEDS: ASCORBIC ACID 500 MG TABLET PO SCH ×2 (08:47→20:22)
[2021-04-17] MEDS: ZINC SULFATE 220 MG CAPSULE PO SCH (08:47)
[2021-04-17] MEDS: CHOLECALCIFEROL 5,000u TAB PO SCH (08:47)
[2021-04-17 18:52] VITALS: BP 123/66
[2021-04-17] MEDS: MONTELUKAST 10 MG TABLET PO SCH (20:22)
[2021-04-17] MEDS: GUAIFENESIN/COD200MG-20MG/10ML LIQUID PO PRN (21:52)
[2021-04-17] MEDS: CALCIUM CARBONATE 500 MG TAB.CHEW PO PRN (22:23)
[2021-04-18] MEDS: ENOXAPARIN 40 MG/0.4 ML SQ SCH ×2 (06:04→17:36)
[2021-04-18] MEDS: BACITRACIN OINT 500U/GM, 15 GM TP SCH ×2 (08:17→22:43)
[2021-04-18] MEDS: THIAMINE 100MG TABLET PO SCH (08:36)
[2021-04-18] MEDS: CHOLECALCIFEROL 5,000u TAB PO SCH (08:37)
[2021-04-18] MEDS: ASCORBIC ACID 500 MG TABLET PO SCH ×2 (08:37→22:34)
[2021-04-18] MEDS: ZINC SULFATE 220 MG CAPSULE PO SCH (08:37)
[2021-04-18 08:59] VITALS: BP 138/58
[2021-04-18 14:03] VITALS: BP 104/60
[2021-04-18] MEDS: FUROSEMIDE 40 MG/4 ML IV SCH (17:34)
[2021-04-18 19:20] VITALS: BP 105/57
[2021-04-18] MEDS: MONTELUKAST 10 MG TABLET PO SCH (22:34)
[2021-04-18] MEDS: CALCIUM CARBONATE 500 MG TAB.CHEW PO PRN (23:02)
[2021-04-19] MEDS: ENOXAPARIN 40 MG/0.4 ML SQ SCH ×2 (06:01→16:12)
[2021-04-19 07:06] LABS: BASOPHILS % (AUTO) 1 % (0-1); EOSINOPHILS % (AUTO) 4 % (1-7); LYMPHOCYTES % (AUTO) 19 % (22-44); MEAN CORPUSCULAR HEMOGLOBIN 30.2 pg (27.0-34.8); MEAN CORPUSCULAR HGB CONC 33.1 g/dL (32.4-35.8); MEAN PLATELET VOLUME 6.8 fL (7.4-10.4); MONOCYTES % (AUTO) 5 % (2-9); NEUTROPHILS % (AUTO) 72 % (42-75); PLATELET COUNT 313 x10^3/uL (130-400); RED BLOOD COUNT 3.84 x10^6/uL (3.82-5.3); RED CELL DISTRIBUTION WIDTH 14.2 % (9.6-15.2)
[2021-04-19 07:16] LABS: ALBUMIN 2.4 g/dL (3.4-5.0); ANION GAP 5 mmol/L (5-15); CALCIUM 8.9 mg/dL (8.5-10.1); CHLORIDE 102 mmol/L (98-107)
[2021-04-19 07:19] LABS: ALANINE AMINOTRANSFERASE 37 U/L (12-78); ALKALINE PHOSPHATASE 71 U/L (45-117); BILIRUBIN,TOTAL 0.3 mg/dL (0.2-1.0); CREATININE 0.85 mg/dL (0.55-1.02); TOTAL PROTEIN 6.2 g/dL (6.4-8.2)
[2021-04-19] MEDS: CHOLECALCIFEROL 5,000u TAB PO SCH (08:06)
[2021-04-19] MEDS: ZINC SULFATE 220 MG CAPSULE PO SCH (08:06)
[2021-04-19] MEDS: ASCORBIC ACID 500 MG TABLET PO SCH ×2 (08:07→21:10)
[2021-04-19] MEDS: THIAMINE 100MG TABLET PO SCH (08:07)
[2021-04-19] MEDS: FUROSEMIDE 40 MG/4 ML IV SCH (08:07)
[2021-04-19] MEDS: BACITRACIN OINT 500U/GM, 15 GM TP SCH ×2 (08:07→21:00)
[2021-04-19 09:15] VITALS: BP 131/85
[2021-04-19 15:25] VITALS: BP 126/80
[2021-04-19 19:50] VITALS: BP 134/82
[2021-04-19] MEDS: MONTELUKAST 10 MG TABLET PO SCH (21:10)
[2021-04-19] MEDS ORDERED: FUROSEMIDE 20 MG TABLET PO ONE (22:30)
[2021-04-19] MEDS: CALCIUM CARBONATE 500 MG TAB.CHEW PO PRN (23:12)
[2021-04-19 23:13] VITALS: BP 129/71
[2021-04-20 04:18] LABS: BASOPHILS % (AUTO) 1 % (0-1); EOSINOPHILS % (AUTO) 4 % (1-7); LYMPHOCYTES % (AUTO) 20 % (22-44); MEAN CORPUSCULAR HEMOGLOBIN 30.3 pg (27.0-34.8); MEAN CORPUSCULAR HGB CONC 33.5 g/dL (32.4-35.8); MONOCYTES % (AUTO) 6 % (2-9); NEUTROPHILS % (AUTO) 69 % (42-75); PLATELET COUNT 304 x10^3/uL (130-400); RED BLOOD COUNT 3.83 x10^6/uL (3.82-5.3); RED CELL DISTRIBUTION WIDTH 14.3 % (9.6-15.2)
[2021-04-20] MEDS: GUAIFENESIN/COD200MG-20MG/10ML LIQUID PO PRN ×3 (04:22→23:38)
[2021-04-20] MEDS: ENOXAPARIN 40 MG/0.4 ML SQ SCH ×2 (04:22→17:30)
[2021-04-20 04:28] VITALS: BP 113/69
[2021-04-20 04:33] LABS: ANION GAP 7 mmol/L (5-15); CALCIUM 8.8 mg/dL (8.5-10.1); CHLORIDE 103 mmol/L (98-107); CREATININE 0.82 mg/dL (0.55-1.02)
[2021-04-20 08:13] VITALS: BP 123/68
[2021-04-20] MEDS: BACITRACIN OINT 500U/GM, 15 GM TP SCH ×2 (09:00→21:38)
[2021-04-20] MEDS: ZINC SULFATE 220 MG CAPSULE PO SCH (09:00)
[2021-04-20] MEDS: ASCORBIC ACID 500 MG TABLET PO SCH ×2 (10:20→21:37)
[2021-04-20] MEDS: SPIRONOLACTONE 25 MG TABLET PO SCH ×2 (10:21→21:37)
[2021-04-20] MEDS: CHOLECALCIFEROL 5,000u TAB PO SCH (10:22)
[2021-04-20] MEDS: FUROSEMIDE 20 MG TABLET PO SCH (10:22)
[2021-04-20] MEDS: THIAMINE 100MG TABLET PO SCH (10:22)
[2021-04-20 13:50] VITALS: BP 128/80
[2021-04-20 19:46] VITALS: BP 124/77
[2021-04-20] MEDS: MONTELUKAST 10 MG TABLET PO SCH (21:37)
[2021-04-21] MEDS: ENOXAPARIN 40 MG/0.4 ML SQ SCH ×2 (05:30→16:41)
[2021-04-21 06:12] LABS: BASOPHILS % (AUTO) 0 % (0-1); EOSINOPHILS % (AUTO) 3 % (1-7); LYMPHOCYTES % (AUTO) 19 % (22-44); MEAN CORPUSCULAR HGB CONC 33.9 g/dL (32.4-35.8); MEAN PLATELET VOLUME 6.9 fL (7.4-10.4); MONOCYTES % (AUTO) 5 % (2-9); NEUTROPHILS % (AUTO) 73 % (42-75); PLATELET COUNT 286 x10^3/uL (130-400); RED BLOOD COUNT 3.71 x10^6/uL (3.82-5.3); RED CELL DISTRIBUTION WIDTH 14.6 % (9.6-15.2)
[2021-04-21 06:25] LABS: CHLORIDE 104 mmol/L (98-107)
[2021-04-21 06:41] LABS: ANION GAP 8 mmol/L (5-15); CALCIUM 8.8 mg/dL (8.5-10.1); CREATININE 0.77 mg/dL (0.55-1.02)
[2021-04-21 08:11] VITALS: BP 125/83
[2021-04-21] MEDS: BACITRACIN OINT 500U/GM, 15 GM TP SCH ×2 (09:00→21:00)
[2021-04-21] MEDS: SPIRONOLACTONE 25 MG TABLET PO SCH ×2 (09:49→21:12)
[2021-04-21] MEDS: ZINC SULFATE 220 MG CAPSULE PO SCH (09:49)
[2021-04-21] MEDS: METHOCARBAMOL 500 MG TABLET PO PRN (09:49)
[2021-04-21] MEDS: GUAIFENESIN/COD200MG-20MG/10ML LIQUID PO PRN ×3 (09:49→22:55)
[2021-04-21] MEDS: THIAMINE 100MG TABLET PO SCH (09:50)
[2021-04-21] MEDS: CHOLECALCIFEROL 5,000u TAB PO SCH (09:50)
[2021-04-21] MEDS: FUROSEMIDE 20 MG TABLET PO SCH (09:50)
[2021-04-21] MEDS: ASCORBIC ACID 500 MG TABLET PO SCH ×2 (09:50→21:12)
[2021-04-21 12:12] VITALS: BP 116/74
[2021-04-21] MEDS ORDERED: FUROSEMIDE 20 MG/2 ML IV ONE (16:00)
[2021-04-21 20:00] VITALS: BP 139/84
[2021-04-21] MEDS: MONTELUKAST 10 MG TABLET PO SCH (21:12)
[2021-04-22 00:09] VITALS: BP 128/81
[2021-04-22] MEDS: ENOXAPARIN 40 MG/0.4 ML SQ SCH ×2 (05:35→17:12)
[2021-04-22 06:11] LABS: CHLORIDE 102 mmol/L (98-107)
[2021-04-22 06:21] LABS: ANION GAP 8 mmol/L (5-15); CREATININE 0.74 mg/dL (0.55-1.02)
[2021-04-22] MEDS: THIAMINE 100MG TABLET PO SCH (08:27)
[2021-04-22] MEDS: ZINC SULFATE 220 MG CAPSULE PO SCH (08:27)
[2021-04-22] MEDS: GUAIFENESIN/COD200MG-20MG/10ML LIQUID PO PRN ×2 (08:27→22:33)
[2021-04-22] MEDS: FUROSEMIDE 20 MG TABLET PO SCH (08:27)
[2021-04-22] MEDS: BACITRACIN OINT 500U/GM, 15 GM TP SCH ×2 (08:28→20:33)
[2021-04-22] MEDS: CHOLECALCIFEROL 5,000u TAB PO SCH (08:28)
[2021-04-22] MEDS: ASCORBIC ACID 500 MG TABLET PO SCH ×2 (08:28→20:23)
[2021-04-22] MEDS: SPIRONOLACTONE 25 MG TABLET PO SCH ×2 (08:28→20:23)
[2021-04-22 08:33] VITALS: BP 133/77
[2021-04-22] MEDS: ONDANSETRON ODT 4 MG PO PRN (11:28)
[2021-04-22] MEDS ORDERED: FUROSEMIDE 20 MG/2 ML IV ONE (16:30)
[2021-04-22] MEDS: MONTELUKAST 10 MG TABLET PO SCH (20:23)
[2021-04-22 20:34] VITALS: BP 109/71
[2021-04-23] MEDS: ENOXAPARIN 40 MG/0.4 ML SQ SCH ×2 (04:54→16:44)
[2021-04-23 04:56] VITALS: BP 115/77
[2021-04-23 08:22] VITALS: BP 113/69
[2021-04-23] MEDS: BACITRACIN OINT 500U/GM, 15 GM TP SCH ×2 (09:00→21:00)
[2021-04-23] MEDS: SPIRONOLACTONE 25 MG TABLET PO SCH ×2 (09:47→21:34)
[2021-04-23] MEDS: CHOLECALCIFEROL 5,000u TAB PO SCH (09:47)
[2021-04-23] MEDS: THIAMINE 100MG TABLET PO SCH (09:47)
[2021-04-23] MEDS: ASCORBIC ACID 500 MG TABLET PO SCH ×2 (09:47→21:34)
[2021-04-23] MEDS: FUROSEMIDE 20 MG TABLET PO SCH (09:47)
[2021-04-23] MEDS: ZINC SULFATE 220 MG CAPSULE PO SCH (09:47)
[2021-04-23 13:37] VITALS: BP 109/75
[2021-04-23 20:21] VITALS: BP 121/78
[2021-04-23] MEDS: GUAIFENESIN/COD200MG-20MG/10ML LIQUID PO PRN (21:34)
[2021-04-23] MEDS: MONTELUKAST 10 MG TABLET PO SCH (21:34)
[2021-04-24 00:07] VITALS: BP 119/72
[2021-04-24] MEDS: ENOXAPARIN 40 MG/0.4 ML SQ SCH ×2 (05:00→18:34)
[2021-04-24 05:58] LABS: BASOPHILS % (AUTO) 1 % (0-1); EOSINOPHILS % (AUTO) 2 % (1-7); LYMPHOCYTES % (AUTO) 20 % (22-44); MEAN CORPUSCULAR HEMOGLOBIN 30.1 pg (27.0-34.8); MEAN CORPUSCULAR HGB CONC 32.9 g/dL (32.4-35.8); MEAN PLATELET VOLUME 7.1 fL (7.4-10.4); MONOCYTES % (AUTO) 7 % (2-9); NEUTROPHILS % (AUTO) 69 % (42-75); PLATELET COUNT 321 x10^3/uL (130-400); RED CELL DISTRIBUTION WIDTH 15.2 % (9.6-15.2)
[2021-04-24 06:07] LABS: CHLORIDE 103 mmol/L (98-107)
[2021-04-24 06:25] LABS: ALBUMIN 2.3 g/dL (3.4-5.0); ANION GAP 7 mmol/L (5-15); CREATININE 0.75 mg/dL (0.55-1.02)
[2021-04-24 07:20] VITALS: BP 130/83
[2021-04-24] MEDS: BACITRACIN OINT 500U/GM, 15 GM TP SCH ×2 (09:00→20:30)
[2021-04-24] MEDS: SPIRONOLACTONE 25 MG TABLET PO SCH ×2 (09:22→20:39)
[2021-04-24] MEDS: FUROSEMIDE 20 MG TABLET PO SCH (09:22)
[2021-04-24] MEDS: GUAIFENESIN/COD200MG-20MG/10ML LIQUID PO PRN ×2 (09:36→20:39)
[2021-04-24 12:09] VITALS: BP 127/77
[2021-04-24 19:10] VITALS: BP 123/81
[2021-04-24] MEDS: MONTELUKAST 10 MG TABLET PO SCH (20:31)
[2021-04-25 00:10] VITALS: BP 140/84
[2021-04-25] MEDS: ENOXAPARIN 40 MG/0.4 ML SQ SCH ×2 (05:00→18:09)
[2021-04-25 06:13] LABS: BASOPHILS % (AUTO) 1 % (0-1); EOSINOPHILS % (AUTO) 2 % (1-7); LYMPHOCYTES % (AUTO) 22 % (22-44); MEAN CORPUSCULAR HGB CONC 32.8 g/dL (32.4-35.8); MEAN PLATELET VOLUME 7.1 fL (7.4-10.4); MONOCYTES % (AUTO) 7 % (2-9); NEUTROPHILS % (AUTO) 67 % (42-75); PLATELET COUNT 344 x10^3/uL (130-400); RED BLOOD COUNT 3.74 x10^6/uL (3.82-5.3); RED CELL DISTRIBUTION WIDTH 15.3 % (9.6-15.2)
[2021-04-25] MEDS ORDERED: OMNIPAQUE 350 MG/ML, 100ML BOTTLE ONE (06:20)
[2021-04-25 06:28] LABS: ANION GAP 4 mmol/L (5-15); CALCIUM 8.7 mg/dL (8.5-10.1); CHLORIDE 104 mmol/L (98-107); CREATININE 0.75 mg/dL (0.55-1.02)
[2021-04-25 08:11] VITALS: BP 129/74
[2021-04-25] MEDS: FUROSEMIDE 20 MG TABLET PO SCH (10:59)
[2021-04-25] MEDS: BACITRACIN OINT 500U/GM, 15 GM TP SCH ×2 (10:59→21:00)
[2021-04-25] MEDS: SPIRONOLACTONE 25 MG TABLET PO SCH ×2 (10:59→22:11)
[2021-04-25] MEDS ORDERED: FUROSEMIDE 40 MG/4 ML IV ONE (12:00)
[2021-04-25 12:46] VITALS: BP 137/77
[2021-04-25] MEDS: GUAIFENESIN/COD200MG-20MG/10ML LIQUID PO PRN (18:09)
[2021-04-25 18:38] VITALS: BP 133/83
[2021-04-25] MEDS: MONTELUKAST 10 MG TABLET PO SCH (22:11)
[2021-04-26 00:36] VITALS: BP 108/68
[2021-04-26] MEDS: ENOXAPARIN 40 MG/0.4 ML SQ SCH (05:13)
[2021-04-26 05:50] LABS: BASOPHILS % (AUTO) 1 % (0-1); EOSINOPHILS % (AUTO) 2 % (1-7); LYMPHOCYTES % (AUTO) 21 % (22-44); MEAN CORPUSCULAR HGB CONC 33.1 g/dL (32.4-35.8); MEAN PLATELET VOLUME 7.4 fL (7.4-10.4); MONOCYTES % (AUTO) 7 % (2-9); NEUTROPHILS % (AUTO) 69 % (42-75); PLATELET COUNT 359 x10^3/uL (130-400); RED BLOOD COUNT 3.97 x10^6/uL (3.82-5.3); RED CELL DISTRIBUTION WIDTH 15.4 % (9.6-15.2)
[2021-04-26 06:03] LABS: ANION GAP 7 mmol/L (5-15); CALCIUM 9.2 mg/dL (8.5-10.1); CHLORIDE 98 mmol/L (98-107); CREATININE 0.86 mg/dL (0.55-1.02)
[2021-04-26] MEDS: FUROSEMIDE 20 MG TABLET PO SCH (08:09)
[2021-04-26] MEDS: SPIRONOLACTONE 25 MG TABLET PO SCH (08:09)
[2021-04-26] MEDS: BACITRACIN OINT 500U/GM, 15 GM TP SCH (08:10)
[2021-04-26 09:27] VITALS: BP 143/75
[2021-04-26] MEDS: BISACODYL 10 MG SUPP PR PRN (11:09)
[2021-04-26] MEDS ORDERED: FURO20TA3 PO (12:41)
[2021-04-26] MEDS ORDERED: PRED10TA PO (12:41)
[2021-04-26] MEDS ORDERED: ALPR0.254 PO (12:41)
[2021-04-26] MEDS ORDERED: BENZ200C48 PO (12:41)
[2021-04-26] MEDS ORDERED: ASPI325T20 PO (12:41)
[2021-04-26] MEDS: GUAIFENESIN/COD200MG-20MG/10ML LIQUID PO PRN (13:06)
[2021-04-26 14:01] VITALS: BP 110/73
== END 2021-04-26 17:59 | disposition home health service (06) | DRG 177 ==
LOC: ED 09:34 → EDIP 12:29 → 3N 12:30 → 5SO 03-31 10:10 → CCU 04-02 15:54 → 4WST 04-06 19:25 → 3N 04-20 12:43
PROVIDERS: ADMIT Internal Medicine; ATTEND Internal Medicine
PROC: 5A09357 Assistance with Respiratory Ventilation, Less than 24 Consecutive Hours, Continuous Positive Airway Pressure (ICD-10-PCS; 2021-04-04)
PROC: 5A09357 Assistance with Respiratory Ventilation, Less than 24 Consecutive Hours, Continuous Positive Airway Pressure (ICD-10-PCS; 2021-04-05)
PROC: 5A09357 Assistance with Respiratory Ventilation, Less than 24 Consecutive Hours, Continuous Positive Airway Pressure (ICD-10-PCS; 2021-04-06)
PROC: 5A0935A Assistance with Respiratory Ventilation, Less than 24 Consecutive Hours, High Flow/Velocity Cannula (ICD-10-PCS; 2021-04-15)
PROC: 5A0935A Assistance with Respiratory Ventilation, Less than 24 Consecutive Hours, High Flow/Velocity Cannula (ICD-10-PCS; 2021-04-16)
PROC: 5A0935A Assistance with Respiratory Ventilation, Less than 24 Consecutive Hours, High Flow/Velocity Cannula (ICD-10-PCS; 2021-04-17)
PROC: 5A0935A Assistance with Respiratory Ventilation, Less than 24 Consecutive Hours, High Flow/Velocity Cannula (ICD-10-PCS; 2021-04-18)
PROC: 5A0935A Assistance with Respiratory Ventilation, Less than 24 Consecutive Hours, High Flow/Velocity Cannula (ICD-10-PCS; 2021-04-23)
PROC: XW033E5 Introduction of Remdesivir Anti-infective into Peripheral Vein, Percutaneous Approach, New Technology Group 5 (ICD-10-PCS; principal; 2021-04-24)
DX: U07.1 COVID-19 (principal); J12.82 Pneumonia due to coronavirus disease 2019; J96.01 Acute respiratory failure with hypoxia; Z68.41 Body mass index [BMI] 40.0-44.9, adult; E87.1 Hypo-osmolality and hyponatremia; E87.3 Alkalosis; B37.0 Candidal stomatitis; J44.0 Chronic obstructive pulmonary disease with (acute) lower respiratory infection; F11.20 Opioid dependence, uncomplicated; D68.69 Other thrombophilia; I95.9 Hypotension, unspecified; E66.01 Morbid (severe) obesity due to excess calories; G43.909 Migraine, unspecified, not intractable, without status migrainosus; I10 Essential (primary) hypertension; M54.9 Dorsalgia, unspecified; G47.33 Obstructive sleep apnea (adult) (pediatric); D50.9 Iron deficiency anemia, unspecified; G89.29 Other chronic pain; F41.1 Generalized anxiety disorder; E87.6 Hypokalemia; E88.09 Other disorders of plasma-protein metabolism, not elsewhere classified; Z88.9 Allergy status to unspecified drugs, medicaments and biological substances; Z79.899 Other long term (current) drug therapy
CPT/HCPCS: 36415; 36600; 71045; 71275; 80048; 80053; 80069; 80076; 82040; 82728; 82803; 83605; 83615; 83735; 84100; 84145; 84484; 85025; 85379; 85384; 85651; 86140; 87040; 87081; 93005; 93970; 94640; 94660; 96372; 96374; G0378; J1100; J1650; J1940; J2405; J2550; Q0162; Q9967; J3420; J7030; J7050; J7512